=== PATIENT | male | born 1965 | race Caucasian/White ===

== ENCOUNTER 2017-07-04 20:54 | Emergency (ER) | payer OTHER ==
[~2017-07-04] VITALS: Ht 180.3 cm; Wt 70.3 kg
[2017-07-04] MEDS ORDERED: brilinta (21:27)
[2017-07-04] MEDS ORDERED: ORPHENADRINE 60 MG/2 ML (NORFLEX) AMP IM STA (21:57)
[2017-07-04] MEDS ORDERED: KETOROLAC 60 MG/2 ML VIAL IM STA (21:57)
[2017-07-04] MEDS ORDERED: RX-CYCLOBENZAPRINE 10 MG (FLEXERIL) TAB PPK#3 PO STA (22:51)
[2017-07-04] MEDS ORDERED: CYCL10TA9 PO (22:54)
--- NOTE | 2017-07-04 22:55 | ED Back Pain ---
General Chief Complaint: Back Problems Stated Complaint: LOWER BACK PAIN Nursing Triage Note: Patient denies injury to his lower back, he advises that he awoke from sleep and when he got out of bed he began experiencing back pain. Nursing Sepsis Screen: No Definite Risk History of Present Illness Time Seen by Provider: 21:40 Initial Comments Patient has acute left-sided lower lumbar back pain, with muscle spasms. He denies any injury. He took hydrocodone a proximally 2 hours prior to arrival with minimal improvement in his symptoms. He states he's had long-standing back problems dating back to high school. He denies any bowel or bladder changes. Timing/Duration: 12 Hours Severity: Mild Pain/Injury Location: Back Method of Injury: Unknown Modifying Factors: Improves With Movement, Improves With Rest Associated Symptoms: muscle spasms, No numbness in legs/feet, No tingling in legs/feet, No sensory/motor loss, lower back pain, No loss of bladder control, No loss of bowel control Allergies and Home Medications Allergies Coded Allergies: No Known Drug Allergies (Unverified , 07/04/17) Home Medications Cyclobenzaprine HCl 10 Mg Tablet, 10 MG PO Q8H PRN for MUSCLE SPASMS, #12 Ref 0 Prescribed by: DONI SHELBY on 07/04/17 3884 [brilinta] , (Reported) Constitutional: no symptoms reported, see HPI Musculoskeletal: see HPI, back pain All Other Systems Reviewed Negative Unless Noted: Yes Past Znhsdii-Xctlid-Wexvcy Hx Patient Social History Alcohol Use: Denies Use Recreational Drug Use: No Smoking Status: Current Everyday Smoker Type Used: Cigarettes Recent Foreign Travel: No Contact w/Someone Who Travel: No Recent Infectious Disease Expo: No Recent Hopitalizations: No Seasonal Allergies Seasonal Allergies: No Cardiovascular Cardiac Disorders: High Cholesterol Reviewed Nursing Assessment Reviewed/Agree w Nursing PMH: Yes Physical Exam Vital Signs Vital Sign - Last 12Hours 07/04/17 21:17 Temp 98.6 Pulse 90 Resp 14 B/P (MAP) 138/91 Pulse Ox 96 O2 Delivery Room Air Capillary Refill : Less Than 3 Seconds General Appearance: No Apparent Distress, WD/WN Neck: Full Range of Motion, Normal Inspection, Non Tender, Supple Cardiovascular: Regular Rate, Rhythm, No Murmur Respiratory: Chest Non Tender, Lungs Clear Gastrointestinal: Normal Bowel Sounds, Non Tender, Soft Back: Normal Inspection, No CVA Tenderness, Decreased Range of Motion ( secondary to pain), Muscle Spasm (left lumbar), No Vertebral Tenderness Extremity: Normal Capillary Refill, No Calf Tenderness, No Pedal Edema Neurologic/Psychiatric: Alert, Oriented x3, No Motor/Sensory Deficits, Normal Mood/Affect Skin: Normal Color, Warm/Dry Progress/Results/Core Measures Results/Orders My Orders Orders - DONI SHELBY Ketorolac Injection (Toradol Injection) (07/04/17 21:57) Orphenadrine Injection (Norflex Injectio (07/04/17 21:57) Lumbar Spine - 2-3 Views (07/04/17 21:59) Rx-Cyclobenzaprine Tablet (Rx-Flexeril T (07/04/17 22:51) Vital Signs/I&O Vital Sign - Last 12Hours 07/04/17 21:17 Temp 98.6 Pulse 90 Resp 14 B/P (MAP) 138/91 Pulse Ox 96 O2 Delivery Room Air Blood Pressure Mean: 107 Diagnostic Imaging Diagonstic Imaging: Xray Plain Films/CT/US/NM/MRI: other (lumbar spine) Comments Mild degenerative changes noted, no fractures or keep bony abnormalities noted. Will be over read by radiology tomorrow. Reviewed: Reviewed by Me Departure Impression Impression: Primary Impression: Back pain Qualified Codes: M54.5 - Low back pain Additional Impression: Lumbosacral strain Qualified Codes: S39.012A - Strain of muscle, fascia and tendon of lower back , initial encounter Disposition: 01 HOME, SELF-CARE Condition: Improved Departure-Patient Inst. Referrals: NO,LOCAL PHYSICIAN (PCP/Family) Primary Care Physician Patient Instructions: Lumbar Muscle Strain (DC), Low Back Pain (DC) Add. Discharge Instructions: Ibuprofen 600 mg every 8 hours. Use a muscle relaxant as needed every 8 hours. Continue to take your home hydrocodone as needed. Gentle range of motion for the lumbar spine. Ice to low back 20 minutes every 2 hours. Return to the emergency department if symptoms worsen or new problems. Follow-up with your primary care provider in 3-4 days if symptoms are not improving. All discharge instructions reviewed with patient and/or family. Voiced understanding. Scripts Cyclobenzaprine HCl (Cyclobenzaprine HCl) 10 Mg Tablet 10 MG PO Q8H Y for MUSCLE SPASMS, #12 TAB 0 Refills Prov: AFSANEH,DONI LUMBER MARKER 07/04/17 DONI SHELBY Jul 04, 2017 22:55
[2017-07-04 22:59] VITALS: BP 138/91
--- NOTE | 2017-07-05 07:59 | Diagnostic Imaging Report ---
INDICATION: Low back pain. COMPARISON: None. FINDINGS: 3 views of the lumbar column demonstrate normal alignment. There is no subluxation or fracture. Mild degenerative changes seen throughout the spaces and facet joints. There is no osseous lesion. SI joints are symmetric. IMPRESSION: Mild diffuse degenerative changes without fracture or traumatic malalignment. Dictated by: Dictated on workstation # [id number]
== END 2017-07-04 22:59 | disposition home or self-care (01) ==
LOC: ER 20:58
DX: S39.012A Strain of muscle, fascia and tendon of lower back, initial encounter (principal); E78.00 Pure hypercholesterolemia, unspecified; F17.210 Nicotine dependence, cigarettes, uncomplicated; X50.0XXA Overexertion from strenuous movement or load, initial encounter
CPT/HCPCS: 72100; 96372; 99284

== ENCOUNTER 2019-06-12 15:22 | Emergency (ER) | payer SELFPAY ==
[~2019-06-12] VITALS: Ht 180.3 cm; Wt 70.8 kg
[~2019-06-12 15:22] MED LIST: CYCL10TA9 PO; brilinta
--- OUTSIDE RECORDS SUMMARY | 2019-06-12 15:27 | XMS REPORT | Continuity of Care Document ---
Author Organization Unknown Address Unknown Allergies There is no data. Medications There is no data. Problems There is no data. Procedures There is no data. Results There is no data. Encounters ACCT No. Visit Date/Time Discharge Status Pt. Type Provider Facility Loc./Unit Complaint [id number] 06/07/2019 09:20:00 06/07/2019 23:59:59 [facility]
--- NOTE | 2019-06-12 15:30 | ED Lower Extremity ---
General Stated Complaint: RT FOOT PAIN Source: patient, RN notes reviewed, old records Exam Limitations: no limitations History of Present Illness Date Seen by Provider: Jun 12, 2019 Time Seen by Provider: 15:30 Initial Comments Patient presents to the ED c/ c/o worsening redness and pain on the dorsum of his right foot x 1 week. Was started on 300 mg Clindamycin QID on 06/07 by his PCP. Never had before. States he has been cutting of corns on the sole of his foot c/ nail clippers. Onset: last week Severity: moderate (6/10) Pain/Injury Location: right foot Method of Injury: unknown Modifying Factors: Worse With Movement; Improves With Rest Allergies and Home Medications Allergies Coded Allergies: No Known Drug Allergies (Unverified , 07/04/17) Home Medications Cephalexin 500 Mg Capsule, 1,000 MG PO TID Prescribed by: MICHELLE MAY on 06/12/191700 Cyclobenzaprine HCl 10 Mg Tablet, 10 MG PO Q8H PRN for MUSCLE SPASMS Prescribed by: DONI SHELBY on 07/04/172253 Dexamethasone 4 Mg Tablet, 12 MG PO ONCE Prescribed by: MICHELLE MAY on 06/12/191706 Hydrocodone Bit/Acetaminophen 1 Ea Tablet, 1 EACH PO Q6H PRN for BREAK THRU PAIN Prescribed by: MICHELLE MAY on 06/12/191700 Patient Home Medication List Home Medication List Reviewed: Yes Review of Systems Constitutional: see HPI Musculoskeletal: see HPI, other (right foot pain) Skin: see HPI, other (redness across top of right foot) All Other Systems Reviewed Negative Unless Noted: Yes (Negative excepted noted.) Past Jdaomus-Ithfro-Bzmmxc Hx Patient Social History Type Used: Cigarettes Recent Hopitalizations: No Seasonal Allergies Seasonal Allergies: No Past Medical History Surgeries: Yes (cardiac stent placement) Respiratory: No Cardiac: Yes High Cholesterol Neurological: No Genitourinary: No Gastrointestinal: No Musculoskeletal: Yes (back injury in high school) HEENT: No Cancer: No Psychosocial: No Physical Exam Vital Signs Vital Signs - First Documented 06/12/19 15:24 Temp 98.7 Pulse 112 Resp 18 B/P (MAP) 103/69 (80) Pulse Ox 96 Capillary Refill : Height, Weight, BMI Height: 5'11.00" Weight: 155lbs. oz. 70.842947yn; BMI Method:Stated General Appearance: WD/WN, no apparent distress Cardiovascular: tachycardia Respiratory: no respiratory distress Feet: right foot infection, right foot pain, right foot soft tissue tenderness, right foot swelling Neurologic/Psychiatric: no motor/sensory deficits, alert, normal mood/affect, oriented x 3 Skin: warm/dry, other ((+) erythema across the top of the patient's right foot) Progress/Results/Core Measures Results/Orders Lab Results Laboratory Tests Test 06/12/19 15:45 06/12/19 16:10 Range/Units White Blood Count 10.8 4.3-11.0 10^3/uL Red Blood Count 5.76 4.35-5.85 10^6/uL Hemoglobin 18.3 H 13.3-17.7 G/DL Hematocrit 54 40-54 % Mean Corpuscular Volume 93 80-99 FL Mean Corpuscular Hemoglobin 32 25-34 PG Mean Corpuscular Hemoglobin Concent 34 32-36 G/DL Red Cell Distribution Width 13.5 10.0-14.5 % Platelet Count 264 130-400 10^3/uL Mean Platelet Volume 8.5 7.4-10.4 FL Neutrophils (%) (Auto) 71 42-75 % Lymphocytes (%) (Auto) 21 12-44 % Monocytes (%) (Auto) 6 0-12 % Eosinophils (%) (Auto) 1 0-10 % Basophils (%) (Auto) 1 0-10 % Neutrophils # (Auto) 7.7 1.8-7.8 X 10^3 Lymphocytes # (Auto) 2.3 1.0-4.0 X 10^3 Monocytes # (Auto) 0.6 0.0-1.0 X 10^3 Eosinophils # (Auto) 0.1 0.0-0.3 10^3/uL Basophils # (Auto) 0.1 0.0-0.1 10^3/uL Erythrocyte Sedimentation Rate 1 0-30 MM/HR Sodium Level 138 135-145 MMOL/L Potassium Level 3.7 3.6-5.0 MMOL/L Chloride Level 98 98-107 MMOL/L Carbon Dioxide Level 20 L 21-32 MMOL/L Anion Gap 20 H 5-14 MMOL/L Blood Urea Nitrogen 14 7-18 MG/DL Creatinine 1.03 0.60-1.30 MG/DL Estimat Glomerular Filtration Rate > 60 BUN/Creatinine Ratio 14 Glucose Level 146 H 70-105 MG/DL Calcium Level 9.7 8.5-10.1 MG/DL Corrected Calcium 9.5 8.5-10.1 MG/DL Total Bilirubin 0.3 0.1-1.0 MG/DL Aspartate Amino Transf (AST/SGOT) 19 5-34 U/L Alanine Aminotransferase (ALT/SGPT) 14 0-55 U/L Alkaline Phosphatase 114 40-136 U/L Total Protein 7.1 6.4-8.2 GM/DL Albumin 4.2 3.2-4.5 GM/DL Lactic Acid Level 1.76 0.50-2.00 MMOL/L My Orders Orders - MICHELLE MAY DO Cbc With Automated Diff (06/12/19 15:36) Comprehensive Metabolic Panel (06/12/19 15:36) Lactic Acid Analyzer (06/12/19 15:36) Erythrocyte Sedimentation Rate (06/12/19 15:36) Hs C Reactive Protein (06/12/19 15:45) Vital Signs/I&O 06/12/19 06/12/19 15:24 17:13 Temp 98.7 Pulse 112 104 Resp 18 18 B/P (MAP) 103/69 (80) 123/79 (94) Pulse Ox 96 95 Departure Impression Primary Impression: Cellulitis of right foot Disposition: HOME, SELF-CARE Condition: Stable Departure-Patient Inst. Referrals: JERROD ARMAS MD (PCP/Family) Primary Care Physician Patient Instructions: Cellulitis (Skin Infection), Adult (DC) Add. Discharge Instructions: MAY ADD 650 mg OF TYLENOL EVERY 6 HOURS IN ADDITION TO THE PRESCRIBED PAIN MEDICATION IF NEEDED WELL. Scripts Dexamethasone (Decadron) 4 Mg Tablet 12 MG PO ONCE, #3 TAB 0 Refills Prov: MICHELLE MAY DO 06/12/19 Hydrocodone Bit/Acetaminophen (LORTAB 7.5 MG TABLET) 1 Ea Tablet 1 EACH PO Q6H PRN for BREAK THRU PAIN, #14 TAB 0 Refills Prov: MICHELLE MAY DO 06/12/19 Cephalexin (Keflex) 500 Mg Capsule 1000 MG PO TID for CELLULITIS for 10 Days, #60 CAP 0 Refills Prov: MICHELLE MAY DO 06/12/19 MICHELLE MAY DO Jun 12, 2019 15:30
[2019-06-12 15:52] LABS: BASOPHILS # (AUTO) 0.1 10^3/uL (0.0-0.1); BASOPHILS % (AUTO) 1 % (0-10); EOSINOPHILS # (AUTO) 0.1 10^3/uL (0.0-0.3); EOSINOPHILS % (AUTO) 1 % (0-10); HEMATOCRIT 54 % (40-54); HEMOGLOBIN 18.3 G/DL (13.3-17.7); LYMPHOCYTES # (AUTO) 2.3 X 10^3 (1.0-4.0); LYMPHOCYTES % (AUTO) 21 % (12-44); MEAN CORPUSCULAR HEMOGLOBIN 32 PG (25-34); MEAN CORPUSCULAR HGB CONC 34 G/DL (32-36); MEAN CORPUSCULAR VOLUME 93 FL (80-99); MEAN PLATELET VOLUME 8.5 FL (7.4-10.4); MONOCYTES # (AUTO) 0.6 X 10^3 (0.0-1.0); MONOCYTES % (AUTO) 6 % (0-12); NEUTROPHILS # (AUTO) 7.7 X 10^3 (1.8-7.8); NEUTROPHILS % (AUTO) 71 % (42-75); PLATELET COUNT 264 10^3/uL (130-400); RED CELL DISTRIBUTION WIDTH 13.5 % (10.0-14.5); WHITE BLOOD COUNT 10.8 10^3/uL (4.3-11.0)
[2019-06-12 16:33] LABS: ERYTHROCYTE SEDIMENTATION RATE 1 MM/HR (0-30)
[2019-06-12 16:39] LABS: BUN/CREATININE RATIO 14; CARBON DIOXIDE 20 MMOL/L (21-32); CHLORIDE 98 MMOL/L (98-107); CREATININE SERUM 1.03 MG/DL (0.60-1.30); GFR ESTIMATED > 60; POTASSIUM 3.7 MMOL/L (3.6-5.0); SODIUM 138 MMOL/L (135-145)
[2019-06-12 16:40] LABS: ALANINE AMINOTRANSFERASE 14 U/L (0-55); ALBUMIN 4.2 GM/DL (3.2-4.5); ALKALINE PHOSPHATASE 114 U/L (40-136); BILIRUBIN,TOTAL 0.3 MG/DL (0.1-1.0); CALCIUM 9.7 MG/DL (8.5-10.1); GLUCOSE 146 MG/DL (70-105); TOTAL PROTEIN 7.1 GM/DL (6.4-8.2)
[2019-06-12] MEDS ORDERED: CEPH-507 PO (17:01)
[2019-06-12] MEDS ORDERED: HYDR-34 PO (17:01)
[2019-06-12] MEDS ORDERED: DEXA4TAB66 PO (17:07)
[2019-06-12 17:13] VITALS: BP 123/79
== END 2019-06-12 17:15 | disposition home or self-care (01) ==
LOC: EDUNIT# 15:22 → ER FS 15:24
DX: L03.115 Cellulitis of right lower limb (principal); E78.00 Pure hypercholesterolemia, unspecified; Z95.5 Presence of coronary angioplasty implant and graft
CPT/HCPCS: 36415; 80053; 83605; 85025; 85652; 86141

== ENCOUNTER → 2019-08-08 | Outpatient (CLI) | payer BC ==
[~2019-08-08] MED LIST changes: +CEPH-507 PO; +DEXA4TAB66 PO; +HYDR-34 PO
== END ==
LOC: RT 14:27
PROVIDERS: ATTEND Nurse Practitioner Family
DX: J30.9 Allergic rhinitis, unspecified (principal); J44.9 Chronic obstructive pulmonary disease, unspecified; F17.200 Nicotine dependence, unspecified, uncomplicated

== ENCOUNTER → 2019-09-26 | Outpatient (CLI) | payer BC ==
[~2019-09-26] MED LIST changes: +RT-ALBUTEROL SULF 2.5 MG/3 ML PRE-MIX VIAL INH ONE
== END ==
LOC: RT 10:33
PROVIDERS: ATTEND Nurse Practitioner Family
DX: J44.9 Chronic obstructive pulmonary disease, unspecified (principal); J30.9 Allergic rhinitis, unspecified; F17.200 Nicotine dependence, unspecified, uncomplicated
CPT/HCPCS: 94060; 94726; 94729

== ENCOUNTER → 2019-09-30 | Outpatient (CLI) | payer BC ==
[2019-09-26 14:25] LABS: BUN/CREATININE RATIO 18; GFR ESTIMATED > 60
[~2019-09-30] MED LIST changes: +CATHETER FLUSH 10 ML SYR IV PRN; +HOLD METFORMIN - RECEIVED CONTRAST 20 ML VIAL IV SCH; +IOHEXOL 350 MG/ML 100 ML (OMNIPAQUE 350) VIAL IV ONE; +NS 100 ML (IVPB) BAG IV ONE; -RT-ALBUTEROL SULF 2.5 MG/3 ML PRE-MIX VIAL INH ONE
--- NOTE | 2019-09-30 12:56 | Diagnostic Imaging Report ---
PROCEDURE: CT chest with contrast only. TECHNIQUE: Multiple contiguous axial images were obtained through the chest after administration of intravenous contrast. Auto Exposure Controls were utilized during the CT exam to meet ALARA standards for radiation dose reduction. INDICATION: Difficulty breathing. COMPARISON: No prior studies are available for comparison. FINDINGS: No axillary lymphadenopathy is detected. No definite mediastinal or hilar lymphadenopathy is detected. No pericardial or pleural fluid is identified. Parenchymal evaluation demonstrates centrilobular emphysematous changes. There is some dependent atelectasis in both lung bases. There appears to be some minimal infiltrate in the posterior right lower lobe. No definite nodule or mass is detected. The upper abdomen demonstrates a tiny nonobstructing calculus in the right kidney upper pole. Bony structures are nonacute. IMPRESSION: 1. Centrilobular emphysematous changes. There is minimal patchy infiltrate in posterior right lower lobe. No mass or thoracic lymphadenopathy is detected. 2. Tiny nonobstructing right renal calculus. Dictated by: Dictated on workstation # [id number]
== END ==
LOC: RAD 09-26 13:51 → RAD FS 11:08
PROVIDERS: ATTEND Nurse Practitioner Family
DX: J43.2 Centrilobular emphysema (principal); J30.9 Allergic rhinitis, unspecified; F17.200 Nicotine dependence, unspecified, uncomplicated
CPT/HCPCS: 36415; 71260; 82565; 84520

== ENCOUNTER 2019-11-07 15:35 | Emergency (ER) | payer BC ==
[~2019-11-07] VITALS: Ht 180 cm; Wt 72.5 kg
[~2019-11-07 15:35] MED LIST changes: -CATHETER FLUSH 10 ML SYR IV PRN; -HOLD METFORMIN - RECEIVED CONTRAST 20 ML VIAL IV SCH; -IOHEXOL 350 MG/ML 100 ML (OMNIPAQUE 350) VIAL IV ONE; -NS 100 ML (IVPB) BAG IV ONE
[2019-11-07 15:58] LABS: HEMATOCRIT 52 % (40-54); HEMOGLOBIN 17.7 G/DL (13.3-17.7); MEAN CORPUSCULAR HEMOGLOBIN 32 PG (25-34); MEAN CORPUSCULAR HGB CONC 34 G/DL (32-36); MEAN CORPUSCULAR VOLUME 94 FL (80-99); WHITE BLOOD COUNT 8.4 10^3/uL (4.3-11.0)
[2019-11-07 15:59] LABS: BASOPHILS % (AUTO) 0 % (0-10); EOSINOPHILS # (AUTO) 0.1 10^3/uL (0.0-0.3); EOSINOPHILS % (AUTO) 2 % (0-10); LYMPHOCYTES # (AUTO) 2.2 X 10^3 (1.0-4.0); LYMPHOCYTES % (AUTO) 26 % (12-44); MEAN PLATELET VOLUME 8.4 FL (7.4-10.4); MONOCYTES # (AUTO) 0.6 X 10^3 (0.0-1.0); MONOCYTES % (AUTO) 7 % (0-12); NEUTROPHILS # (AUTO) 5.5 X 10^3 (1.8-7.8); NEUTROPHILS % (AUTO) 65 % (42-75); PLATELET COUNT 258 10^3/uL (130-400); RED CELL DISTRIBUTION WIDTH 13.2 % (10.0-14.5)
[2019-11-07] MEDS ORDERED: ASPIRIN 81 MG CHEW (CHILDREN'S ASA) PO ONE (16:00)
--- NOTE | 2019-11-07 16:06 | ED Chest Pain ---
General Chief Complaint: Chest Pain Stated Complaint: BACK AND CHEST PAIN Nursing Triage Note: Has been having intermittent chest tightness for the past two days, currently rated at 3/10. Has hx of stent placement 4 years ago. Also has hx of copd and has been coughing worse for the past week. Cough is productive of a whitish phlegm. Did have some shortness of breath and dizziness yesterday. 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 Nursing Sepsis Screen: No Definite Risk Source: patient Exam Limitations: no limitations (MAYKEL LUU DO) History of Present Illness Date Seen by Provider: Nov 07, 2019 Time Seen by Provider: 15:50 Initial Comments The patient is a 54-year-old male presents for evaluation of right sided chest tightness which is been bothering him for the past 2 days. He states that he had a cardiac stent placed about 4 years ago and that this pain does not remind him of back pain. He reports a history of COPD and believes that that's what this is. He is also having some acute on chronic low back pain which started weeks ago. He states that he had some shortness of breath and dizziness yesterday. His healthcare associate is an Alexandra. He states that he does not take aspirin daily and did not take one today. He tells me that he took his other cardiac medications but is unable to tell me what they are. Timing/Duration: 1-2 days Severity/Quality: moderate Location: other (right chest) Radiation: no radiation Activities at Onset: none Prior CP/Workup: cardiac cath (with stent placement) ASA po CAR DRIVER: No NTG SL CAR DRIVER: No Associated Symptoms: back pain (low back pain, chronic started before chest discomfort) (MAYKEL LUU DO) Allergies and Home Medications Allergies Coded Allergies: No Known Drug Allergies (Unverified , 07/04/17) Home Medications Cephalexin 500 Mg Capsule, 1,000 MG PO TID Prescribed by: MICHELLE MAY on 06/12/19 170 Cyclobenzaprine HCl 10 Mg Tablet, 10 MG PO Q8H PRN for MUSCLE SPASMS Prescribed by: DONI SHELBY on 07/04/17 349 Dexamethasone 4 Mg Tablet, 12 MG PO ONCE Prescribed by: MICHELLE MAY on 06/12/19 170 Hydrocodone Bit/Acetaminophen 1 Ea Tablet, 1 EACH PO Q6H PRN for BREAK THRU PAIN Prescribed by: MICHELLE MAY on 06/12/19 1701 Patient Home Medication List Home Medication List Reviewed: Yes (MAYKEL LUU DO) Review of Systems Review of Systems Constitutional: no symptoms reported EENTM: No Symptoms Reported Respiratory: No Symptoms Reported Cardiovascular: Chest Pain Gastrointestinal: No Symptoms Reported Genitourinary: No Symptoms Reported Musculoskeletal: back pain (low back pain) Skin: no symptoms reported Psychiatric/Neurological: No Symptoms Reported Endocrine: No Symptoms Reported Hematologic/Lymphatic: No Symptoms Reported (MAYKEL LUU DO) All Other Systems Reviewed Negative Unless Noted: Yes (MAYKEL LUU DO) Past Apzsjaa-Qlfsob-Pwkpqd Hx Past Med/Social Hx: Reviewed Nursing Past Med/Soc Hx (MAYKEL LUU DO) Patient Social History Alcohol Use: Denies Use Recreational Drug Use: No Type Used: Cigarettes 2nd Hand Smoke Exposure: Yes Recent Foreign Travel: No Contact w/Someone Who Travel: No Recent Infectious Disease Expo: No Recent Hopitalizations: No Physical Abuse: No Sexual Abuse: No Mistreated: No Fear: No (MAYKEL LUU DO) Seasonal Allergies Seasonal Allergies: No (MAYKEL LUU DO) Past Medical History Surgeries: Yes (cardiac stent placement) Respiratory: No Cardiac: Yes (stent placement ) High Cholesterol Neurological: No Genitourinary: No Gastrointestinal: No Musculoskeletal: Yes (back injury in high school) Endocrine: No HEENT: No Cancer: No Psychosocial: No Integumentary: No (MAYKEL LUU DO) Physical Exam Vital Signs Vital Signs - First Documented 11/07/19 15:41 Temp 36.2 Pulse 95 Resp 20 B/P (MAP) 122/77 (92) Pulse Ox 93 (JOSÉ LUIS TRISTAN MD) Vital Signs Capillary Refill : Less Than 3 Seconds (MAYKEL LUU DO) Height, Weight, BMI Height: 5'11.00" Weight: 156lbs. oz. 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-XII Norm as Tested Skin: Normal Color, Warm/Dry (MAYKEL LUU DO) Progress/Results/Core Measures Results/Orders Lab Results Laboratory Tests Test 11/07/19 15:48 11/07/19 17:08 Range/Units White Blood Count 8.4 4.3-11.0 10^3/uL Red Blood Count 5.50 4.35-5.85 10^6/uL Hemoglobin 17.7 13.3-17.7 G/DL Hematocrit 52 40-54 % Mean Corpuscular Volume 94 80-99 FL Mean Corpuscular Hemoglobin 32 25-34 PG Mean Corpuscular Hemoglobin Concent 34 32-36 G/DL Red Cell Distribution Width 13.2 10.0-14.5 % Platelet Count 258 130-400 10^3/uL Mean Platelet Volume 8.4 7.4-10.4 FL Neutrophils (%) (Auto) 65 42-75 % Lymphocytes (%) (Auto) 26 12-44 % Monocytes (%) (Auto) 7 0-12 % Eosinophils (%) (Auto) 2 0-10 % Basophils (%) (Auto) 0 0-10 % Neutrophils # (Auto) 5.5 1.8-7.8 X 10^3 Lymphocytes # (Auto) 2.2 1.0-4.0 X 10^3 Monocytes # (Auto) 0.6 0.0-1.0 X 10^3 Eosinophils # (Auto) 0.1 0.0-0.3 10^3/uL Basophils # (Auto) 0.0 0.0-0.1 10^3/uL Sodium Level 139 135-145 MMOL/L Potassium Level 3.9 3.6-5.0 MMOL/L Chloride Level 103 98-107 MMOL/L Carbon Dioxide Level 25 21-32 MMOL/L Anion Gap 11 5-14 MMOL/L Blood Urea Nitrogen 16 7-18 MG/DL Creatinine 0.90 0.60-1.30 MG/DL Estimat Glomerular Filtration Rate > 60 BUN/Creatinine Ratio 18 Glucose Level 130 H 70-105 MG/DL Calcium Level 9.2 8.5-10.1 MG/DL Corrected Calcium 9.1 8.5-10.1 MG/DL Total Bilirubin 0.3 0.1-1.0 MG/DL Aspartate Amino Transf (AST/SGOT) 16 5-34 U/L Alanine Aminotransferase (ALT/SGPT) 11 0-55 U/L Alkaline Phosphatase 110 40-136 U/L Troponin I < 0.30 < 0.30 <0.30 NG/ML Pro-B-Type Natriuretic Peptide 36.3 <75.0 PG/ML Total Protein 6.8 6.4-8.2 GM/DL Albumin 4.1 3.2-4.5 GM/DL Lipase 19 8-78 U/L (JOSÉ LUIS TRISTAN MD) Medications Given in ED Current Medications Medications Dose Ordered Sig/Herrera Route Start Time Stop Time Status Last Admin Dose Admin Aspirin 324 mg ONCE ONCE PO 11/07/19 16:00 11/07/19 16:01 DC 11/07/19 16:00 324 MG (JOSÉ LUIS TRISTAN MD) Vital Signs/I&O 11/07/19 15:41 Temp 36.2 Pulse 95 Resp 20 B/P (MAP) 122/77 (92) Pulse Ox 93 (JOSÉ LUIS TRISTAN MD) Blood Pressure Mean: 92 POS Progress Progress Note : Progress Note @1800 - Pt care transferred to Dr. Tristan at this time. Pt has no new complaints and is stable. Awaiting second troponin anticipated around 1829. (MAYKEL LUU DO) Progress Note #1: Time: 18:00 Progress Note I assumed care for the patient from Dr. Luu at shift change pending a repeat Troponin. This is due to be drawn after 1830. Plan is that provided he has no new complaints that if this repeat test is still negative to discharge him to home and have him follow up with his primary provider. Progress Note #2: Time: 19:54 Progress Note Repeat troponin is still <0.30. Pt still feels like he is breathing ok and that this is related to his COPD. Will treat him with steroid burst and give first dose of Solu-Medrol here. Then follow up with a prednisone started by mouth. Since he states that he is coughing up some thick whitish green mucus will also treat him with a Z-Daniel to help with inflammation and bronchitis. Patient also still complaining of low back pain since he had a fall about a month ago. Advised that the steroids may help from the contusion and if he continued to have symptoms to check with his primary doctor both about the breathing and his low back. If he has continued pain and they may need to do a bone scan or imaging to look for a compression fracture since he does have a history of having to be on steroids for his breathing. (JOSÉ LUIS TRISTAN MD) EKG : Comment @1542 - normal sinus rhythm, rate of 95, normal axis, right bundle-branch block is present, no acute ischemic findings noted, no STEMI, reviewed and interpreted by myself (MAYKEL LUU DO) Diagnostic Imaging Diagonstic Imaging: Xray Plain Films/CT/US/NM/MRI: chest Comments NAME: MAX ORDOÑEZ MED REC#: [id number] PT STATUS: REG ER : 1965 PHYSICIAN: MAYKEL LUU DO ADMIT DATE: 11/07/19/ER FS Draft POSDate of Exam:11/07/19 CHEST 1 VIEW AP/PA ONLY INDICATION: Chest tightness. COMPARISON: CT dated 09/30/2019. FINDINGS: Single frontal view of the chest demonstrates normal heart size and pulmonary vascularity. The lungs are well aerated and clear. No large pleural effusion or pneumothorax is seen. The visualized osseous structures show no acute abnormalities. IMPRESSION: 1. No acute cardiopulmonary process. Dictated on workstation # [id number] Dict: 11/07/19 1603 Trans: 11/07/19 1605 [id number] Interpreted by: CHRISTOFER NAIR MD Electronically signed by: (JOSÉ LUIS TRISTAN MD) Departure Impression Primary Impression: COPD with exacerbation Additional Impression: Lumbar contusion Qualified Codes: S30.0XXD - Contusion of lower back and pelvis, subsequent encounter Disposition: 01 HOME, SELF-CARE Condition: Stable Departure-Patient Inst. Decision time for Depature: 20:05 (JOSÉ LUIS TRISTAN MD) Referrals: JERROD ARMAS MD (PCP/Family) Primary Care Physician Patient Instructions: Exacerbation of COPD (DC), Contusion (DC) Add. Discharge Instructions: Take the full course of steroids and antibiotics to help with the COPD exacerbation. Follow up with Dr. Armas for continued concerns and if not improving, both with your breathing and the low back contusion and pain. All discharge instructions reviewed with patient and/or family. Voiced understanding. Scripts Prednisone (Prednisone) 20 Mg Tab 40 MG PO DAILY for 5 Days, #10 TAB 0 Refills Prov: JOSÉ LUIS TRISTAN MD 11/07/19 Azithromycin (Azithromycin) 250 Mg Tablet 250 MG PO DAILY for 4 Days, #4 TAB 0 Refills Prov: JOSÉ LUIS TRISTAN MD 11/07/19 Work/School Note: Work Release Form Date Seen in the Emergency Department: Nov 07, 2019 Return to Work: Nov 08, 2019 Restrictions: No Restrictions MAYKEL LUU DO Nov 07, 2019 16:06 JOSÉ LUIS ALVARADO MD Nov 07, 2019 19:48 POS
[2019-11-07 16:30] LABS: CARBON DIOXIDE 25 MMOL/L (21-32); CHLORIDE 103 MMOL/L (98-107); POTASSIUM 3.9 MMOL/L (3.6-5.0); SODIUM 139 MMOL/L (135-145)
[2019-11-07 16:31] LABS: ALANINE AMINOTRANSFERASE 11 U/L (0-55); ALBUMIN 4.1 GM/DL (3.2-4.5); ALKALINE PHOSPHATASE 110 U/L (40-136); BILIRUBIN,TOTAL 0.3 MG/DL (0.1-1.0); BUN/CREATININE RATIO 18; CALCIUM 9.2 MG/DL (8.5-10.1); GFR ESTIMATED > 60; GLUCOSE 130 MG/DL (70-105); LIPASE 19 U/L (8-78); TOTAL PROTEIN 6.8 GM/DL (6.4-8.2)
[2019-11-07] MEDS ORDERED: methylPREDNISolone 125 MG (Solu-MEDROL) VIAL IVP STA (20:01)
[2019-11-07] MEDS ORDERED: AZITHROMYCIN 250 MG TAB (ZITHROMAX) PO STA (20:01)
[2019-11-07] MEDS ORDERED: PRD20T PO (20:08)
[2019-11-07] MEDS ORDERED: AZIT250T12 PO (20:08)
[2019-11-07 20:11] VITALS: BP 116/75
== END 2019-11-07 20:11 | disposition home or self-care (01) ==
LOC: EDUNIT# 15:35 → ER FS 15:36
DX: J44.1 Chronic obstructive pulmonary disease with (acute) exacerbation (principal); S30.0XXD Contusion of lower back and pelvis, subsequent encounter; E78.00 Pure hypercholesterolemia, unspecified; Z95.5 Presence of coronary angioplasty implant and graft; Z77.22 Contact with and (suspected) exposure to environmental tobacco smoke (acute) (chronic); Z87.828 Personal history of other (healed) physical injury and trauma; X58.XXXD Exposure to other specified factors, subsequent encounter
CPT/HCPCS: 36415; 71045; 80053; 83690; 83880; 84484; 85025; 93005; 93041

== ENCOUNTER → 2020-03-16 | Outpatient (CLI) | payer BC, OTHER ==
[~2020-03-16] MED LIST changes: +AZIT250T12 PO; +CATHETER FLUSH 10 ML SYR IV PRN; +HOLD METFORMIN - RECEIVED CONTRAST 20 ML VIAL IV SCH; +IOHEXOL 350 MG/ML 100 ML (OMNIPAQUE 350) VIAL IV ONE; +NS 100 ML (IVPB) BAG IV ONE; +PRD20T PO
--- NOTE | 2020-03-16 11:46 | Diagnostic Imaging Report ---
PROCEDURE: CT chest with contrast only. TECHNIQUE: Multiple contiguous axial images were obtained through the chest after administration of intravenous contrast. Auto Exposure Controls were utilized during the CT exam to meet ALARA standards for radiation dose reduction. INDICATION: Dyspnea, cough, COPD. COMPARISON: 09/30/2019 FINDINGS: No significant adenopathy within the chest. Calcified left hilar lymph nodes are again noted. No aneurysmal dilatation of the thoracic aorta. The heart is within normal limits in size. No pericardial effusion. No significant pleural effusion. No pneumothorax. Moderate background centrilobular emphysematous changes. Dependent atelectasis is noted bilaterally. Mild reticular and groundglass opacities are noted within the most inferior aspect of the right lower lobe. These opacities appear less dense though persistent when compared to prior CT. No new focal pulmonary opacity or nodule. The trachea is patent. Calcified splenic granuloma. Nonobstructing right renal calculus. No acute osseous abnormality with scattered osseous degenerative changes. IMPRESSION: Moderate background emphysematous changes with associated dependent atelectasis. Persistent right basilar atelectasis and/or pneumonitis. This appears less dense than the prior examination though persisting opacities do remain within this region. Tiny nonobstructing right renal calculus. Evidence of chronic granulomatous disease. Dictated by: Dictated on workstation # [id number]
== END ==
LOC: RAD FS 10:03
PROVIDERS: ATTEND Nurse Practitioner Family
DX: J43.9 Emphysema, unspecified (principal); F17.200 Nicotine dependence, unspecified, uncomplicated; N20.0 Calculus of kidney
CPT/HCPCS: 71260

== ENCOUNTER → 2020-03-16 | Outpatient (CLI) | payer OTHER ==
[~2020-03-16] MED LIST changes: -CATHETER FLUSH 10 ML SYR IV PRN; -HOLD METFORMIN - RECEIVED CONTRAST 20 ML VIAL IV SCH; -IOHEXOL 350 MG/ML 100 ML (OMNIPAQUE 350) VIAL IV ONE; -NS 100 ML (IVPB) BAG IV ONE
[2020-03-16 10:12] LABS: HEMATOCRIT 54 % (40-54); HEMOGLOBIN 18.3 G/DL (13.3-17.7); MEAN CORPUSCULAR HEMOGLOBIN 32 PG (25-34); MEAN CORPUSCULAR VOLUME 95 FL (80-99); WHITE BLOOD COUNT 7.6 10^3/uL (4.3-11.0)
[2020-03-16 10:13] LABS: BASOPHILS % (AUTO) 0 % (0-10); EOSINOPHILS % (AUTO) 3 % (0-10); LYMPHOCYTES % (AUTO) 32 % (12-44); MEAN CORPUSCULAR HGB CONC 34 G/DL (32-36); MEAN PLATELET VOLUME 8.2 FL (7.4-10.4); MONOCYTES % (AUTO) 6 % (0-12); NEUTROPHILS % (AUTO) 59 % (42-75); PLATELET COUNT 196 10^3/uL (130-400); RED CELL DISTRIBUTION WIDTH 13.4 % (10.0-14.5)
[2020-03-16 10:14] LABS: EOSINOPHILS # (AUTO) 0.3 10^3/uL (0.0-0.3); LYMPHOCYTES # (AUTO) 2.4 X 10^3 (1.0-4.0); MONOCYTES # (AUTO) 0.5 X 10^3 (0.0-1.0); NEUTROPHILS # (AUTO) 4.4 X 10^3 (1.8-7.8)
[2020-03-16 10:35] LABS: BUN/CREATININE RATIO 13; CARBON DIOXIDE 23 MMOL/L (21-32); CHLORIDE 104 MMOL/L (98-107); CREATININE SERUM 0.83 MG/DL (0.60-1.30); GFR ESTIMATED > 60; POTASSIUM 4.2 MMOL/L (3.6-5.0); SODIUM 140 MMOL/L (135-145)
[2020-03-16 10:36] LABS: ALANINE AMINOTRANSFERASE 14 U/L (0-55); ALBUMIN 4.2 GM/DL (3.2-4.5); ALKALINE PHOSPHATASE 112 U/L (40-136); BILIRUBIN,TOTAL 0.5 MG/DL (0.1-1.0); CALCIUM 9.5 MG/DL (8.5-10.1); GLUCOSE 100 MG/DL (70-105); TOTAL PROTEIN 6.7 GM/DL (6.4-8.2)
[2020-03-16 15:46] LABS: CHOLESTEROL 187 MG/DL (< 200); HDL CHOLESTEROL 49 MG/DL (40-60); TRIGLYCERIDES 135 MG/DL (<150); VLDL CHOLESTEROL 27 MG/DL (5-40)
== END ==
LOC: LAB FS 09:44
PROVIDERS: ATTEND Nurse Practitioner Family
DX: Z01.812 Encounter for preprocedural laboratory examination (principal); Z13.1 Encounter for screening for diabetes mellitus; Z86.39 Personal history of other endocrine, nutritional and metabolic disease
CPT/HCPCS: 36415; 80053; 80061; 85025

== ENCOUNTER → 2020-03-20 | Outpatient (CLI) | payer OTHER ==
--- NOTE | 2020-03-20 10:09 | Diagnostic Imaging Report ---
EXAMINATION: Lumbar spine radiographs, 3 views. COMPARISON: July 04, 2017. HISTORY: 54-year-old male, low back pain. FINDINGS: There are 5 lumbar-type vertebral bodies. There is no identified compression deformity or other fracture. There is multilevel mild to moderate disc height loss at the thoracolumbar spine levels with multilevel endplate degenerative related changes. There are mild bilateral facet degenerative changes at L4-L5 and L5-S1. The sacroiliac joints are unremarkable in appearance. There are atherosclerotic calcifications. IMPRESSION: 1. Multilevel mild to moderate disc degenerative changes of the thoracolumbar spine. 2. No identified compression deformity. 3. Mild bilateral facet degenerative changes at L4-L5 and L5-S1. 4. There is an interval progression of degenerative changes of the spine since comparison radiographs of July 04, 2017. Dictated by: Dictated on workstation # [id number]
== END ==
LOC: RAD FS 09:26
PROVIDERS: ATTEND Nurse Practitioner
DX: M47.815 Spondylosis without myelopathy or radiculopathy, thoracolumbar region (principal); M47.817 Spondylosis without myelopathy or radiculopathy, lumbosacral region
CPT/HCPCS: 72100

== ENCOUNTER 2020-04-11 12:58 | Inpatient (IN) | payer OTHER ==
[~2020-04-11] VITALS: Ht 183 cm; Wt 70.0 kg
[2020-04-11] VITALS (11 sets, daily range): BP systolic 115–161; BP diastolic 58–102
[2020-04-11] MEDS ORDERED: ATOR80TA76 PO (13:13)
[2020-04-11] MEDS ORDERED: NITROGLYCERIN 0.4 MG SL TABS BTL 25'S SL PRN (13:15)
[2020-04-11] MEDS ORDERED: ASPIRIN 81 MG CHEW (CHILDREN'S ASA) PO ONE (13:15)
[2020-04-11] MEDS ORDERED: ASPI-586 PO (13:16)
--- NOTE | 2020-04-11 13:25 | ED Chest Pain ---
General Chief Complaint: Chest Pain Stated Complaint: CHEST PAIN; SOB Nursing Triage Note: Chest pain starting while working, eased up since stopping. Nursing Sepsis Screen: No Definite Risk Source: patient Exam Limitations: no limitations History of Present Illness Date Seen by Provider: April 11, 2020 Time Seen by Provider: 13:19 Initial Comments Patient complains of onset of chest pain with nausea and shortness of breath while working lasting 15+ minutes abating slowly once ceasing work. Patient has a history of coronary stents 4 years ago currently on aspirin, smokes, elevated triglycerides. Patient has had some intermittent effort related chest pain but none in the past month. 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) Prior CP/Workup: no prior cardiac workup, cardiac cath, other (stents 4 years ago) Modifying Factors: improves with exercise ASA po ORNAMENTAL RAIL INSTALLER: No NTG SL ORNAMENTAL RAIL INSTALLER: No Associated Symptoms: No diaphoresis, No dizziness, No nausea/vomiting; shortness of breath Allergies and Home Medications Allergies Coded Allergies: No Known Drug Allergies (Unverified , 07/04/17) Patient Home Medication List Home Medication List Reviewed: Yes Review of Systems Review of Systems Constitutional: no symptoms reported EENTM: No Symptoms Reported Respiratory: See HPI, Cough Cardiovascular: See HPI Gastrointestinal: See HPI Genitourinary: No Symptoms Reported Musculoskeletal: no symptoms reported Skin: no symptoms reported Psychiatric/Neurological: No Symptoms Reported Hematologic/Lymphatic: No Symptoms Reported Past Hwlcnrx-Gaillq-Csvtbc Hx Patient Social History Alcohol Use: Denies Use Recreational Drug Use: No Type Used: Cigarettes 2nd Hand Smoke Exposure: Yes Recent Foreign Travel: No Contact w/Someone Who Travel: No Recent Infectious Disease Expo: No Recent Hopitalizations: No Physical Abuse: No Sexual Abuse: No Mistreated: No Fear: No Seasonal Allergies Seasonal Allergies: No Past Medical History Surgeries: Yes (cardiac stent placement) Respiratory: No Cardiac: Yes (stent placement ) High Cholesterol Neurological: No Genitourinary: No Gastrointestinal: No Musculoskeletal: Yes (back injury in high school) Endocrine: No HEENT: No Cancer: No Psychosocial: No Integumentary: No Physical Exam Vital Signs Vital Signs - First Documented 04/11/20 04/11/20 13:08 13:10 Temp 36.1 Pulse 50 Resp 18 B/P (MAP) 164/73 (103) Pulse Ox 95 O2 Delivery Nasal Cannula Capillary Refill : Less Than 3 Seconds Height, Weight, BMI Height: 5'11.00" Weight: 156lbs. oz. 70.094470ue; 22.00 BMI Method:Stated General Appearance: No Apparent Distress, WD/WN HEENT: PERRL/EOMI, Normal ENT Inspection Neck: Full Range of Motion, Normal Inspection, Non Tender, Supple Respiratory: Chest Non Tender, Lungs Clear, Normal Breath Sounds, No Accessory Muscle Use, No Respiratory Distress Cardiovascular: Regular Rate, Rhythm, No Edema, No JVD, Normal Peripheral Pulses Gastrointestinal: Normal Bowel Sounds, No Organomegaly, No Pulsatile Mass, Non Tender, Soft Extremity: Normal Capillary Refill, Normal Inspection, Non Tender Neurologic/Psychiatric: Alert, Oriented x3, No Motor/Sensory Deficits, parent coach II- XII Norm as Tested Skin: Normal Color, Warm/Dry Lymphatic: No Adenopathy Progress/Results/Core Measures Results/Orders Lab Results Laboratory Tests Test 04/11/20 13:08 Range/Units White Blood Count 8.7 4.3-11.0 10^3/uL Red Blood Count 5.42 4.35-5.85 10^6/uL Hemoglobin 17.5 13.3-17.7 G/DL Hematocrit 51 40-54 % Mean Corpuscular Volume 94 80-99 FL Mean Corpuscular Hemoglobin 32 25-34 PG Mean Corpuscular Hemoglobin Concent 34 32-36 G/DL Red Cell Distribution Width 13.2 10.0-14.5 % Platelet Count 257 130-400 10^3/uL Mean Platelet Volume 8.9 7.4-10.4 FL Neutrophils (%) (Auto) 58 42-75 % Lymphocytes (%) (Auto) 33 12-44 % Monocytes (%) (Auto) 6 0-12 % Eosinophils (%) (Auto) 2 0-10 % Basophils (%) (Auto) 1 0-10 % Neutrophils # (Auto) 5.0 1.8-7.8 X 10^3 Lymphocytes # (Auto) 2.9 1.0-4.0 X 10^3 Monocytes # (Auto) 0.5 0.0-1.0 X 10^3 Eosinophils # (Auto) 0.1 0.0-0.3 10^3/uL Basophils # (Auto) 0.1 0.0-0.1 10^3/uL Sodium Level 143 135-145 MMOL/L Potassium Level 4.2 3.6-5.0 MMOL/L Chloride Level 103 98-107 MMOL/L Carbon Dioxide Level 28 21-32 MMOL/L Anion Gap 12 5-14 MMOL/L Blood Urea Nitrogen 17 7-18 MG/DL Creatinine 1.04 0.60-1.30 MG/DL Estimat Glomerular Filtration Rate > 60 BUN/Creatinine Ratio 16 Glucose Level 87 70-105 MG/DL Calcium Level 9.6 8.5-10.1 MG/DL Corrected Calcium 9.4 8.5-10.1 MG/DL Total Bilirubin 0.3 0.1-1.0 MG/DL Aspartate Amino Transf (AST/SGOT) 16 5-34 U/L Alanine Aminotransferase (ALT/SGPT) 13 0-55 U/L Alkaline Phosphatase 112 40-136 U/L Troponin I < 0.30 <0.30 NG/ML Total Protein 6.8 6.4-8.2 GM/DL Albumin 4.3 3.2-4.5 GM/DL Lipase 16 8-78 U/L My Orders Orders - RICK SMITH DO Cbc With Automated Diff (04/11/20 13:15) Chest 1 View Ap/Pa Only (04/11/20 13:15) Ekg Tracing (04/11/20 13:15) Comprehensive Metabolic Panel (04/11/20 13:15) O2 (04/11/20 13:15) Monitor-Rhythm Ecg Trace Only (04/11/20 13:15) Lipid Panel (04/12/20 06:00) Aspirin Chewable Tablet (Baby Aspirin Ch (04/11/20 13:15) Nitroglycerin 0.4 Mg Btl 25's (Nitrostat (04/11/20 13:15) Ed Iv/Invasive Line Start (04/11/20 13:15) Lipase (04/11/20 13:15) Troponin I Fs (04/11/20 13:15) Troponin I Fs (04/11/20 15:15) Medications Given in ED Current Medications Medications Dose Ordered Sig/Herrera Route Start Time Stop Time Status Last Admin Dose Admin Aspirin 324 mg ONCE ONCE PO 04/11/20 13:15 04/11/20 13:19 DC 04/11/20 13:26 324 MG Nitroglycerin 0.4 mg UD PRN SL 04/11/20 13:15 04/11/20 13:28 0.4 MG Vital Signs/I&O 04/11/20 04/11/20 13:08 13:10 Temp 36.1 Pulse 50 Resp 18 B/P (MAP) 164/73 (103) Pulse Ox 95 96 O2 Delivery Nasal Cannula Blood Pressure Mean: 103 Progress Progress Note : Progress Note Patient with a history of known ACS now presents with a worsening effort related chest pain. Still smoking marginally compliant. Initially he was counseled that he would probably require admission for further evaluation climbed plan will be risk stratification and serial troponins here Oertli ongoing negotiation for admission for workup Initial ECG Impression Date: April 11, 2020 Initial ECG Impression Time: 12:58 Initial ECG Rate: 41 Initial ECG Rhythm: S.Joe (2:1 AV block ) Initial ECG Impression: 2nd Degree AV Block Initial ECG Comparisson: Changed Departure Communication (Admissions) Time/Spoke to Consulting Phy: 14:15 Recommended hospitalist admission and will see in consult Patient's pain-free and hemodynamically stable is agreeable to be transferred to [place] to be admitted Impression Primary Impression: ACS (acute coronary syndrome) Additional Impression: Second degree atrioventricular block Disposition: ADMITTED INPATIENT Condition: Stable Admissions Decision to Admit Reason: Admit from ER (General) Decision to Admit/Date: April 11, 2020 Time/Decision to Admit Time: 13:43 Transfer Transfer Reason: Exceeds level of care Time Spoke to Accepting Phy: 14:20 Transfer Progress Notes Presented the case exception admission stepdown unit Transfer Facility: [facility] Method of Transfer: EMS (ALS) Departure-Patient Inst. Referrals: JERROD ARMAS MD (PCP/Family) Primary Care Physician RICK SMITH DO April 11, 2020 13:24
[2020-04-11 13:26] LABS: HEMATOCRIT 51 % (40-54); HEMOGLOBIN 17.5 G/DL (13.3-17.7); MEAN CORPUSCULAR HEMOGLOBIN 32 PG (25-34); WHITE BLOOD COUNT 8.7 10^3/uL (4.3-11.0)
[2020-04-11 13:27] LABS: BASOPHILS % (AUTO) 1 % (0-10); EOSINOPHILS % (AUTO) 2 % (0-10); LYMPHOCYTES % (AUTO) 33 % (12-44); MEAN CORPUSCULAR HGB CONC 34 G/DL (32-36); MEAN CORPUSCULAR VOLUME 94 FL (80-99); MEAN PLATELET VOLUME 8.9 FL (7.4-10.4); MONOCYTES % (AUTO) 6 % (0-12); NEUTROPHILS % (AUTO) 58 % (42-75); PLATELET COUNT 257 10^3/uL (130-400); RED CELL DISTRIBUTION WIDTH 13.2 % (10.0-14.5)
[2020-04-11 13:28] LABS: BASOPHILS # (AUTO) 0.1 10^3/uL (0.0-0.1); EOSINOPHILS # (AUTO) 0.1 10^3/uL (0.0-0.3); LYMPHOCYTES # (AUTO) 2.9 X 10^3 (1.0-4.0); MONOCYTES # (AUTO) 0.5 X 10^3 (0.0-1.0)
--- NOTE | 2020-04-11 13:32 | Diagnostic Imaging Report ---
INDICATION: Chest pain. EXAMINATION: Portable chest at 1:24 PM. FINDINGS: The heart size and pulmonary vascularity are normal. The lungs are clear. There are no effusions or pneumothoraces. IMPRESSION: Negative chest. Dictated by: Dictated on workstation # [id number]
[2020-04-11 13:42] LABS: ALANINE AMINOTRANSFERASE 13 U/L (0-55); ALBUMIN 4.3 GM/DL (3.2-4.5); ALKALINE PHOSPHATASE 112 U/L (40-136); BILIRUBIN,TOTAL 0.3 MG/DL (0.1-1.0); BUN/CREATININE RATIO 16; CALCIUM 9.6 MG/DL (8.5-10.1); CARBON DIOXIDE 28 MMOL/L (21-32); CHLORIDE 103 MMOL/L (98-107); CREATININE SERUM 1.04 MG/DL (0.60-1.30); GFR ESTIMATED > 60; GLUCOSE 87 MG/DL (70-105); LIPASE 16 U/L (8-78); POTASSIUM 4.2 MMOL/L (3.6-5.0); SODIUM 143 MMOL/L (135-145); TOTAL PROTEIN 6.8 GM/DL (6.4-8.2)
[2020-04-11] MEDS ORDERED: CATHETER FLUSH 10 ML SYR IV PRN (16:30)
[2020-04-11] MEDS ORDERED: ACETAMINOPHEN 325 MG TABLET PO PRN (17:00)
--- NOTE | 2020-04-11 17:00 | NUR ---
MAX ORDOÑEZ admitted to room CU12-2, with an admitting diagnosis of Chest pain, on 04/11/20 from [place] via cart, accompanied by staff.MAX ORDOÑEZ introduced to surroundings, call light, bed controls, phone, TV, temperature control, lights, meal times, smoking policy, visitor policy, side rail policy, bathrooms and showers. Patient Rights given to patient in the handbook. MAX ORDOÑEZ verbalizes understanding that [facility] is not responsible for the loss or damage to any personal effects or valuables that are kept in the patients posession during their hospitalization. The following Patient Care Plans were discussed with the pt: Discharge Planning. MAX ORDOÑEZ verbalizes understanding of Interdisciplinary Patient Education. Patient and/or family were informed about the Rapid Response Team and its purpose.
[2020-04-11] MEDS: NICOTINE 21 MG (NICODERM) PATCH TD SCH (17:17)
--- NOTE | 2020-04-11 17:25 | Consultation-Cardiology ---
HPI-Cardiology Cardiology Consultation: Date of Consultation 04/11/20 Time Seen by a Provider: 16:10 Date of Admission Attending Physician Olga Luong MD Admitting Physician Mendoza Truong MD Consulting Physician MARCUS ZHU MD, MA, FACP, FACC, FSCAI, CCDS HPI: Chief Complaint: CC: Chest discomfort HPI 54 yo man with approx 15 min of chest discomfort and shortness of breath with exertion while at work, gradually resolving with rest, non-radiating. Chest discomfort mild to mod, midchest in location, somewhat reminiscent of previous angina. Has not experienced such discomfort in the recent past. Has chronic, exertional shortness of breath that remains unchanged. Denies palp or syncope. Does note some loss of stamina recently. Denies leg swelling Review of Systems-Cardiology Review of Systems Constitutional: tiredness; No weight loss, No weight gain Eyes: No vision change Ears/Nose/Throat: No ear discharge, No nasal drainage, No recent hearing loss Respiratory: As described under HPI Cardiovascular: As described under HPI Gastrointestinal: No constipation, No diarrhea, No nausea, No vomiting Genitourinary: No dysuria, No hematuria, No urine frequency changes Musculoskeletal: No back pain, No joint pain Skin: No rash, No ulcerations Psychiatric/Neurological: No focal weakness, No syncope Hematologic: No bleeding abnormalities UOQ-Ilntmk-Aghfiy Hx Patient Social History Alcohol Use: Denies Use Recreational Drug Use: No Type Used: Cigarettes 2nd Hand Smoke Exposure: Yes Recent Foreign Travel: No Recent Infectious Disease Expo: No Hospitalization with Isolation: Denies Past Medical History PMH As described under Assessment. Family Medical History Family Medical History: Father had IA at age greater than 60 Allergies and Home Medications Allergies Coded Allergies: Penicillins (Verified Allergy, Intermediate, Hives, 04/11/20) Patient Home Medication List Home Medication List Reviewed: Yes Physical Exam-Cardiology Physical Exam Vital Signs/I&O 04/11/20 04/11/20 04/11/20 04/11/20 13:08 13:10 14:59 16:19 Temp 36.1 36.7 Pulse 50 40 43 Resp 18 18 20 B/P (MAP) 164/73 (103) 155/79 142/83 Pulse Ox 95 96 94 94 O2 Delivery Nasal Cannula Room Air Room Air Capillary Refill : Less Than 3 Seconds Data Review Labs Laboratory Tests 04/11/20 13:08: White Blood Count 8.7, Red Blood Count 5.42, Hemoglobin 17.5, Hematocrit 51, Mean Corpuscular Volume 94, Mean Corpuscular Hemoglobin 32, Mean Corpuscular Hemoglobin Concent 34, Red Cell Distribution Width 13.2, Platelet Count 257, Mean Platelet Volume 8.9, Neutrophils (%) (Auto) 58, Lymphocytes (%) (Auto) 33, Monocytes (%) (Auto) 6, Eosinophils (%) (Auto) 2, Basophils (%) (Auto) 1, Neutrophils # (Auto) 5.0, Lymphocytes # (Auto) 2.9, Monocytes # (Auto) 0.5, Eosinophils # (Auto) 0.1, Basophils # (Auto) 0.1, Sodium Level 143, Potassium Level 4.2, Chloride Level 103, Carbon Dioxide Level 28, Anion Gap 12, Blood Urea Nitrogen 17, Creatinine 1.04, Estimat Glomerular Filtration Rate > 60, BUN/Creatinine Ratio 16, Glucose Level 87, Calcium Level 9.6, Corrected Calcium 9.4, Total Bilirubin 0.3, Aspartate Amino Transf (AST/SGOT) 16, Alanine Aminotransferase (ALT/SGPT) 13, Alkaline Phosphatase 112, Troponin I < 0.30, Total Protein 6.8, Albumin 4.3, Lipase 16 A/P-Cardiology Assessment/Admission Diagnosis Chest discomfort suggestive of angina CAD. H/o cor stents. Does not know details. Carries a card that states a Promus 3 x 12 was placed to mid LCX at [facility] approx 4 yrs ago Chronic smoker of cigarettes 2:1 AV block and RBBB on ECG. Vent rate in the low 40s Discussion and Recomendations * Serial enzymes. If positive, consider cath * Would probably need perm pacemaker, given 2:1 AV block in the presence of RBBB (which suggests infra-His block) and symptoms of diminishing stamina * Continue ASA and statin * Echo * Further recs to be based on hosp course Clinical Quality Measures AMI/AHF: ASA po Prior to arrival: No DVT/VTE Risk/Contraindication: Risk Factor Score Per Nursin RFS Level Per Nursing on Admit: 2=Moderate MARCUS ZHU MD FACP FAC CCDS April 11, 2020 17:25
[2020-04-11] MEDS: CATHETER FLUSH 10 ML SYR IV SCH (20:46)
[2020-04-12] VITALS (10 sets, daily range): BP systolic 117–163; BP diastolic 67–88
[2020-04-12 04:00] LABS: BASOPHILS # (AUTO) 0.1 10^3/uL (0.0-0.1); BASOPHILS % (AUTO) 0 % (0-10); EOSINOPHILS # (AUTO) 0.3 10^3/uL (0.0-0.3); EOSINOPHILS % (AUTO) 2 % (0-10); HEMATOCRIT 45 % (40-54); LYMPHOCYTES # (AUTO) 2.8 X 10^3 (1.0-4.0); LYMPHOCYTES % (AUTO) 21 % (12-44); MEAN CORPUSCULAR HEMOGLOBIN 31 PG (25-34); MEAN CORPUSCULAR HGB CONC 35 G/DL (32-36); MEAN CORPUSCULAR VOLUME 88 FL (80-99); MEAN PLATELET VOLUME 9.6 FL (7.4-10.4); MONOCYTES # (AUTO) 1.2 X 10^3 (0.0-1.0); MONOCYTES % (AUTO) 9 % (0-12); NEUTROPHILS # (AUTO) 9.1 X 10^3 (1.8-7.8); NEUTROPHILS % (AUTO) 68 % (42-75); PLATELET COUNT 286 10^3/uL (130-400); RED CELL DISTRIBUTION WIDTH 12.8 % (10.0-14.5); WHITE BLOOD COUNT 13.3 10^3/uL (4.3-11.0)
[2020-04-12 04:11] LABS: INR 0.9 (0.8-1.4); PROTHROMBIN TIME PATIENT 12.9 SEC (12.2-14.7)
[2020-04-12 04:13] LABS: ALBUMIN 4.4 GM/DL (3.2-4.5)
[2020-04-12 04:14] LABS: CHLORIDE 106 MMOL/L (98-107); POTASSIUM 3.8 MMOL/L (3.6-5.0); SODIUM 138 MMOL/L (135-145)
[2020-04-12 04:15] LABS: CALCIUM 9.1 MG/DL (8.5-10.1)
[2020-04-12 04:16] LABS: GLUCOSE 83 MG/DL (70-105); TOTAL PROTEIN 6.9 GM/DL (6.4-8.2)
[2020-04-12 04:17] LABS: CARBON DIOXIDE 21 MMOL/L (21-32)
[2020-04-12 04:18] LABS: BILIRUBIN,TOTAL 0.4 MG/DL (0.1-1.0)
[2020-04-12 04:19] LABS: ALKALINE PHOSPHATASE 75 U/L (40-136); CREATININE SERUM 0.93 MG/DL (0.60-1.30); GFR ESTIMATED > 60
[2020-04-12 04:20] LABS: BUN/CREATININE RATIO 14
[2020-04-12 04:23] LABS: ALANINE AMINOTRANSFERASE 30 U/L (0-55)
[2020-04-12 04:52] LABS: TRIGLYCERIDES 102 MG/DL (<150); VLDL CHOLESTEROL 20 MG/DL (5-40)
[2020-04-12 04:57] LABS: CHOLESTEROL 144 MG/DL (< 200); HDL CHOLESTEROL 46 MG/DL (40-60)
[2020-04-12] MEDS: CATHETER FLUSH 10 ML SYR IV SCH ×3 (06:16→22:47)
--- NOTE | 2020-04-12 08:20 | Progress Note - Cardiology ---
Cardiology SOAP Progress Note Objective: I&O/Vital Signs 04/11/20 04/11/20 04/11/20 04/11/20 21:00 21:00 22:00 23:00 Pulse 43 41 41 Resp 18 13 21 B/P (MAP) 161/85 (110) 139/78 (98) 115/58 (77) Pulse Ox 98 95 95 93 O2 Delivery Room Air Room Air Room Air Room Air 04/12/20 04/12/20 04/12/20 04/12/20 00:00 00:00 00:00 01:00 Temp 36.1 Pulse 41 40 Resp 20 B/P (MAP) 144/73 (96) Pulse Ox 93 98 O2 Delivery Room Air Room Air 04/12/20 04/12/20 04:00 04:00 Pulse 70 Resp 19 B/P (MAP) 135/79 (97) Pulse Ox 91 97 O2 Delivery Room Air Room Air 04/12/20 00:00 Intake Total 500 ml Output Total 900 ml Balance -400 ml Weight (Pounds): 156 Weight (Calculated Kilograms): 70.241594 Results/Procedures: Labs Laboratory Tests 04/11/20 13:08: White Blood Count 8.7, Red Blood Count 5.42, Hemoglobin 17.5, Hematocrit 51, Mean Corpuscular Volume 94, Mean Corpuscular Hemoglobin 32, Mean Corpuscular Hemoglobin Concent 34, Red Cell Distribution Width 13.2, Platelet Count 257, Mean Platelet Volume 8.9, Neutrophils (%) (Auto) 58, Lymphocytes (%) (Auto) 33, Monocytes (%) (Auto) 6, Eosinophils (%) (Auto) 2, Basophils (%) (Auto) 1, Neutrophils # (Auto) 5.0, Lymphocytes # (Auto) 2.9, Monocytes # (Auto) 0.5, Eo sinophils # (Auto) 0.1, Basophils # (Auto) 0.1, Sodium Level 143, Potassium Level 4.2, Chloride Level 103, Carbon Dioxide Level 28, Anion Gap 12, Blood Urea Nitrogen 17, Creatinine 1.04, Estimat Glomerular Filtration Rate > 60, BUN/Creatinine Ratio 16, Glucose Level 87, Calcium Level 9.6, Corrected Calcium 9.4, Total Bilirubin 0.3, Aspartate Amino Transf (AST/SGOT) 16, Alanine Aminotransferase (ALT/SGPT) 13, Alkaline Phosphatase 112, Troponin I < 0.30, Total Protein 6.8, Albumin 4.3, Lipase 16 04/11/20 18:55: Troponin I < 0.028 04/12/20 03:43: White Blood Count 13.3H, Red Blood Count 5.15, Hemoglobin 16.0, Hematocrit 45, Mean Corpuscular Volume 88, Mean Corpuscular Hemoglobin 31, Mean Corpuscular Hemoglobin Concent 35, Red Cell Distribution Width 12.8, Platelet Count 286, Mean Platelet Volume 9.6, Neutrophils (%) (Auto) 68, Lymphocytes (%) (Auto) 21, Monocytes (%) (Auto) 9, Eosinophils (%) (Auto) 2, Basophils (%) (Auto) 0, Neutrophils # (Auto) 9.1H, Lymphocytes # (Auto) 2.8, Monocytes # (Auto) 1.2H, Eo sinophils # (Auto) 0.3, Basophils # (Auto) 0.1, Sodium Level 138, Potassium Level 3.8, Chloride Level 106, Carbon Dioxide Level 21, Anion Gap 11, Blood Urea Nitrogen 13, Creatinine 0.93, Estimat Glomerular Filtration Rate > 60, BUN/Creatinine Ratio 14, Glucose Level 83, Calcium Level 9.1, Corrected Calcium 8.8, Total Bilirubin 0.4, Aspartate Amino Transf (AST/SGOT) 26, Alanine Aminotransferase (ALT/SGPT) 30, Alkaline Phosphatase 75, Total Protein 6.9, Albumin 4.4, Prothrombin Time 12.9, INR Comment 0.9, Activated Partial Thromboplast Time 29, Magnesium Level 2.0, Triglycerides Level 102, Cholesterol Level 144, LDL Cholesterol Direct 102, VLDL Cholesterol 20, HDL Cholesterol 46 Laboratory Tests 04/11/20 13:08 04/12/20 03:43 Laboratory Tests 04/11/20 13:08 04/12/20 03:43 A/P: Assessment: Chest discomfort suggestive of angina CAD. Cardiac cath on April [address] Quintanilla states a Promus 3 x 12 was placed to mid LCX at [facility]. Cardiac cath report of May [address] Quintanilla at [facility] at which time no intervention was indicated and decision to treat medically. Chronic smoker of cigarettes 2:1 AV block and RBBB on ECG. Vent rate in the low 40s Plan: * Serial enzymes. If positive, consider cath * Would probably need perm pacemaker, given 2:1 AV block in the presence of RBBB (which suggests infra-His block) and symptoms of diminishing stamina * Continue ASA and statin * Echo * Further recs to be based on hosp course Clinical Quality Measures AMI/AHF: ASA po Prior to arrival: No JODIE BRITO April 12, 2020 08:20
[2020-04-12] MEDS: NICOTINE 21 MG (NICODERM) PATCH TD SCH (08:28)
[2020-04-12] MEDS ORDERED: NICOTINE 21 MG (NICODERM) PATCH TD SCH (09:00)
--- NOTE | 2020-04-12 09:01 | Progress Note - Cardiology ---
Cardiology SOAP Progress Note Subjective: No cp since admission No palp or syncope No focal weakness No shortness of breath No n/v/d Gen malaise, mild Objective: I&O/Vital Signs 04/11/20 04/11/20 04/11/20 04/11/20 21:00 21:00 22:00 23:00 Pulse 43 41 41 Resp 18 13 21 B/P (MAP) 161/85 (110) 139/78 (98) 115/58 (77) Pulse Ox 98 95 95 93 O2 Delivery Room Air Room Air Room Air Room Air 04/12/20 04/12/20 04/12/20 04/12/20 00:00 00:00 00:00 01:00 Temp 36.1 Pulse 41 40 Resp 20 B/P (MAP) 144/73 (96) Pulse Ox 93 98 O2 Delivery Room Air Room Air 04/12/20 04/12/20 04/12/20 04:00 04:00 08:00 Temp 36.4 Pulse 70 44 Resp 19 16 B/P (MAP) 135/79 (97) 117/82 (94) Pulse Ox 91 97 92 O2 Delivery Room Air Room Air Room Air 04/12/20 00:00 Intake Total 500 ml Output Total 900 ml Balance -400 ml Weight (Pounds): 156 Weight (Calculated Kilograms): 70.862763 Constitutional: AAO x 3, well-developed, well-nourished Respiratory: No accessory muscle use; other (good bilat air entry) Cardiovascular: regular rate-rhythm, S1 and S2, systolic murmur (soft JOHN at card base) Gastrointestional: No tender; soft; No guarding, No rebound; audible bowel sounds Extremities: No clubbing, No cyanosis, No significant edema Neurologic/Psychiatric: alert, oriented x 3, other (moves all limbs equally) Skin: No rash on exposed areas, No ulcerations on exposed areas Results/Procedures: Labs Laboratory Tests 04/11/20 13:08: White Blood Count 8.7, Red Blood Count 5.42, Hemoglobin 17.5, Hematocrit 51, Mean Corpuscular Volume 94, Mean Corpuscular Hemoglobin 32, Mean Corpuscular Hemoglobin Concent 34, Red Cell Distribution Width 13.2, Platelet Count 257, Mean Platelet Volume 8.9, Neutrophils (%) (Auto) 58, Lymphocytes (%) (Auto) 33, Monocytes (%) (Auto) 6, Eosinophils (%) (Auto) 2, Basophils (%) (Auto) 1, Neutrophils # (Auto) 5.0, Lymphocytes # (Auto) 2.9, Monocytes # (Auto) 0.5, Eosinophils # (Auto) 0.1, Basophils # (Auto) 0.1, Sodium Level 143, Potassium Level 4.2, Chloride Level 103, Carbon Dioxide Level 28, Anion Gap 12, Blood Urea Nitrogen 17, Creatinine 1.04, Estimat Glomerular Filtration Rate > 60, BUN/Creatinine Ratio 16, Glucose Level 87, Calcium Level 9.6, Corrected Calcium 9.4, Total Bilirubin 0.3, Aspartate Amino Transf (AST/SGOT) 16, Alanine Aminotransferase (ALT/SGPT) 13, Alkaline Phosphatase 112, Troponin I < 0.30, Total Protein 6.8, Albumin 4.3, Lipase 16 04/11/20 18:55: Troponin I < 0.028 04/12/20 03:43: White Blood Count 13.3H, Red Blood Count 5.15, Hemoglobin 16.0, Hematocrit 45, Mean Corpuscular Volume 88, Mean Corpuscular Hemoglobin 31, Mean Corpuscular Hemoglobin Concent 35, Red Cell Distribution Width 12.8, Platelet Count 286, Mean Platelet Volume 9.6, Neutrophils (%) (Auto) 68, Lymphocytes (%) (Auto) 21, Monocytes (%) (Auto) 9, Eosinophils (%) (Auto) 2, Basophils (%) (Auto) 0, Neutrophils # (Auto) 9.1H, Lymphocytes # (Auto) 2.8, Monocytes # (Auto) 1.2H, Eosinophils # (Auto) 0.3, Basophils # (Auto) 0.1, Sodium Level 138, Potassium Level 3.8, Chloride Level 106, Carbon Dioxide Level 21, Anion Gap 11, Blood Urea Nitrogen 13, Creatinine 0.93, Estimat Glomerular Filtration Rate > 60, BUN/Creatinine Ratio 14, Glucose Level 83, Calcium Level 9.1, Corrected Calcium 8.8, Total Bilirubin 0.4, Aspartate Amino Transf (AST/SGOT) 26, Alanine Aminotransferase (ALT/SGPT) 30, Alkaline Phosphatase 75, Total Protein 6.9, A lbumin 4.4, Prothrombin Time 12.9, INR Comment 0.9, Activated Partial Thromboplast Time 29, Magnesium Level 2.0, Triglycerides Level 102, Cholesterol Level 144, LDL Cholesterol Direct 102, VLDL Cholesterol 20, HDL Cholesterol 46 Laboratory Tests 04/11/20 13:08 04/12/20 03:43 A/P: Assessment: Chest discomfort suggestive of angina CAD. Cardiac cath in April [address] Quintanilla states a Promus 3 x 12 was placed to mid LCX at [facility]. Cardiac cath report of May [address] Quintanilla at [facility] at which time no intervention was indicated and decision to treat medically. Chronic smoker of cigarettes 2:1 AV block and RBBB on ECG and brief episodes of complete heart block Plan: * We reviewed and discussed his card records (summarized above) * Given chest pains in the setting of known CAD and continuing risk factors, we recommend card cath. Rationale, procedure, risks, benefits, potential complications, and alternatives reviewed. He understands wishes to proceed * At time of cath, will also place temp pacemaker to later be converted to perm pacemaker. Rationale, procedure, risks, benefits, potential complications, and alternatives reviewed. He understands wishes to proceed * Echo * Further recs to be based on hosp course Clinical Quality Measures AMI/AHF: ASA po Prior to arrival: MARCUS Alas MD FACP FAC CCDS April 12, 2020 09:01
[2020-04-12] MEDS ORDERED: LIDOCAINE 1% INJ 20 ML 20 ML VIAL ONE ×2 (09:20→15:07)
[2020-04-12] MEDS ORDERED: HEParin (CATH LAB) 2,000 ML IV ONE (09:20)
[2020-04-12] MEDS ORDERED: NS IV 1000 ML 1,000 ML ONE (09:21)
[2020-04-12] MEDS ORDERED: CYCL10TA9 PO (11:07)
[2020-04-12] MEDS ORDERED: IBUP-1780 PO (11:07)
[2020-04-12] MEDS ORDERED: MIDAZOLAM 5 MG/5 ML (VERSED) VIAL ONE ×3 (11:19→16:15)
[2020-04-12] MEDS ORDERED: fentaNYL INJECTION 100 MCG/2 ML AMP ONE ×3 (11:19→16:16)
--- NOTE | 2020-04-12 11:29 | NUR ---
SPOKE WITH THE PT AND WENT THRU THE EXT MED HISTORY COMPLETE THE MED REC ALL MEDICATIONS SHOW ON THE EXT MED HISTORY THE PT WAS TALKING ABOUT A BLOOD PRESSURE HE TAKES BUT COULD NOT REMEMBER THE NAME OF IT, WHEN I INQUIRED ABOUT WHEN HE LAST FILLED IT HE ADMITTED IT HAS BEEN A LONG TIME AND HE WASNT CURRENTLY TAKING ANYTHING FOR BLOOD PRESSURE. OTC MEDS: ASPIRIN 81
[2020-04-12] MEDS ORDERED: NS IV 1000 ML 1,000 ML IV SCH (12:15)
--- NOTE | 2020-04-12 13:01 | Cardiac Procedure Note-CS/ASA ---
Pre-Procedure Note Pre-Op Procedure Note H&P Reviewed The H&P was reviewed, patient examined and no changes noted. Date H&P Reviewed: April 12, 2020 Time H&P Reviewed: 08:00 Conscious Sedation Pre-Proced Time 08:00 ASA Score 3 For ASA 3 and 4: Consider anesthesia and medical clearance. Also, for patients with a history of failed moderate sedation consider anesthesia. Airway Lungs Heart ASA score ASA 1: a normal healthy patient ASA 2: a patient with a mild systemic disease (mid diabetes, controlled hypertension, obesity ASA 3: a patient with a severe systemic disease that limits activity (angina, COPD, prior Myocardial infarction) ASA 4: a patient with an incapacitating disease that is a constant threat to life (CHF, renal failure) ASA 5: a moribund patient not expected to survive 24 hrs. (ruptured aneurysm) ASA 6: a declared brain- patient whose organs are being harvested. For emergent operations, add the letter E after the classification Mallampati Classification Grade 1 Sedation Plan Analgesia, Amnesia, Plan communicated to team members, Discussed options with patient/fam, Discussed risks with patient/fam The patient is an appropriate candidate to undergo the planned procedure, sedation, and anesthesia. The patient immediately re-assessed prior to indication. MARCUS ZHU MD FACP FAC CCDS April 12, 2020 13:01
[2020-04-12] MEDS ORDERED: PATIENT MAY USE OWN MEDS, ALL PO SCH (13:15)
--- NOTE | 2020-04-12 14:37 | NUR ---
This nurse spoke with I reported to him that the carotid ultra sound technician reported to me that the left ICA is 100% occluded. No new orders received att.
--- NOTE | 2020-04-12 14:46 | History & Physical-Hospitalist ---
History of Present Illness HPI/Chief Complaint Elder Meza is a 54-year-old male with past medical history of coronary artery disease, hyperlipidemia, current smoker, who presented with chest pain. He reports that the pain was in the center of his chest and nonradiating. He says it was associated with nausea and vomiting. He denies any radiation to the neck, jaw, or arms. He had associated shortness of breath. He denies any orthopnea or leg swelling. Upon the time of my examination he said his chest pain has resolved. He smokes a pack of cigarettes a day. Source: patient Exam Limitations: no limitations Date Seen 04/12/20 Time Seen by a Provider: 08:40 Attending Physician Nasim Gauthier MD PCP Mendoza Truong MD Referring Physician Date of Admission April 11, 2020 at 14:48 Home Medications & Allergies Home Medications Reviewed patient Home Medication Reconciliation performed by pharmacy medication reconciliations cardiopulmonary technician and eeg tech and/or nursing. Patients Allergies have been reviewed. Allergies Allergies Coded Allergies Penicillins (Verified Allergy, Intermediate, Hives, 04/11/20) Past Mswzqhb-Bdkdit-Avgmvh Hx Past Med/Social Hx: Reviewed Nursing Past Med/Soc Hx Patient Social History Alcohol Use: Denies Use Recreational Drug Use: No Type Used: Cigarettes 2nd Hand Smoke Exposure: Yes Recent Foreign Travel: No Contact w/other who traveled: No Recent Hopitalizations: No Recent Infectious Disease Expo: No Seasonal Allergies Seasonal Allergies: No Past Medical History Cardiac: High Cholesterol Review of Systems Constitutional: no symptoms reported EENTM: no symptoms reported Respiratory: short of breath Cardiovascular: chest pain Gastrointestinal: nausea Genitourinary: no symptoms reported Musculoskeletal: no symptoms reported Skin: no symptoms reported Psychiatric/Neurological: No Symptoms Reported Physical Exam Physical Exam Vital Signs Vital Signs - First Documented 04/11/20 04/11/20 13:08 13:10 Temp 36.1 Pulse 50 Resp 18 B/P (MAP) 164/73 (103) Pulse Ox 95 O2 Delivery Nasal Cannula Capillary Refill : Less Than 3 Seconds Height, Weight, BMI Height: 5'11.00" Weight: 156lbs. oz. 70.740438ds; 22.39 BMI Method:Stated General Appearance: No Apparent Distress, WD/WN HEENT: PERRL/EOMI, Pharynx Normal Neck: Normal Inspection, Supple Respiratory: Lungs Clear, Normal Breath Sounds, No Respiratory Distress Cardiovascular: No Edema, No Murmur, Bradycardia Gastrointestinal: Normal Bowel Sounds, Non Tender, Soft Extremity: Normal Inspection, Non Tender, No Pedal Edema Neurologic/Psychiatric: Alert, Oriented x3, No Motor/Sensory Deficits, Normal Mood/Affect Skin: Normal Color, Warm/Dry Results Results/Procedures Labs Laboratory Tests 04/11/20 13:08 04/12/20 03:43 Patient resulted labs reviewed. Imaging: Reviewed Imaging Report Assessment/Plan Admission Diagnosis Heart block Admission Status: Inpatient Order (span 2 midnights) Reason for Inpatient Admission: Heart block requiring cardiac intervention, evaluation of chest pain Assessment and Plan Atrioventricular block Chest pain Coronary artery disease Hyperlipidemia Tobacco abuse EKG on arrival with second-degree AV block Troponin negative Cardiology consulted, appreciate assistance Planning for left heart catheterization today Planning to place temporary pacemaker at the time of heart cath Continue statin Nicotine patch DVT prophylaxis: Lovenox Clinical Quality Measures AMI/AHF: ASA po Prior to arrival: No DVT/VTE Risk/Contraindication: Risk Factor Score Per Nursin RFS Level Per Nursing on Admit: 2=Moderate NASIM GAUTHIER MD April 12, 2020 14:46
--- NOTE | 2020-04-12 14:56 | Diagnostic Imaging Report ---
PROCEDURE: US carotid duplex, bilateral. TECHNIQUE: Multiple real-time grayscale images were obtained over the carotid arteries in various projections, bilaterally. Additional spectral analysis and color Doppler duplex images were also obtained. INDICATION: History of occluded carotid artery. CORRELATION STUDY: None FINDINGS: On the right, there are scattered atherosclerotic change particularly at the carotid bifurcations extending into the internal and external carotid arteries. There is no appreciable elevated velocity or findings to suggest a focal area of stenosis. External carotid artery is patent. On the left, there is atherosclerotic change throughout the common carotid artery. There is absence of any significant detectable flow within the left internal carotid artery which appears to be completely occluded. External carotid artery patent. Vertebral arteries antegrade direction of flow. DOPPLER (peak systolic velocity M/S Right Left CCA 0.90 0.61 ICA Proximal 0.65 OCCLUDED ICA Mid 0.82 OCCLUDED ICA Distal 0.68 OCCLUDED RATIO 0.91 ECA 0.90 1.43 VERT 0.77 0.62 IMPRESSION: 1. 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 2. Mild atherosclerotic change about the right common carotid artery as well as origin internal and external carotid arteries. However there are no findings to suggest significant stenosis of the right internal carotid artery at this time. Report was faxed/called to Jodi/branch lending officer of Dr. Rose by merlin at 2:55pm. Parameters based on the consensus panel Gudino-Scale and Doppler ultrasound criteria published September 2003, Radiology, Volume 229. Dictated by: Dictated on workstation # [id number]
[2020-04-12] MEDS ORDERED: HEParin (CATH LAB) 1,000 ML IV ONE (15:07)
[2020-04-12] MEDS ORDERED: NS IV 1000 ML 1,000 ML IV ONE (15:10)
[2020-04-12] MEDS: NS IV 1000 ML 1,000 ML IV SCH (15:10)
[2020-04-12] MEDS ORDERED: NS (IVPB) 50 ML ONE (15:12)
[2020-04-12] MEDS ORDERED: ceFAZolin INJECTION 1,000 MG ONE (15:13)
[2020-04-12] MEDS ORDERED: BACITRACIN 50000 UNITS/500 ML NS IR ONE ×2 (15:15)
[2020-04-12] MEDS ORDERED: ceFAZolin INJECTION 1,000 MG VIAL IV ONE (15:15)
[2020-04-12] MEDS ORDERED: BACITRACIN INJECTION 50,000 UNIT, SODIUM CHLORIDE 0.9% IRRIGATIO 500 ML IR ONE ×2 (15:15)
--- NOTE | 2020-04-12 15:43 | CARDIAC CATHETERIZATION ---
DATE OF SERVICE: 04/12/2020 CARDIAC CATHETERIZATION REPORT The patient is a 54-year-old man, who is known to have coronary artery disease and has had stenting of the left circumflex artery in 2016. He presented with chest pain and was also found to have 2:1 AV block with intermittent complete heart block. Because of history of coronary artery disease and symptoms of angina, cardiac catheterization was carried out after having obtained informed consent. DESCRIPTION OF PROCEDURE: The patient was brought to the cardiac catheterization laboratory in a fasting state. Right groin was prepared and draped in the usual sterile fashion. Lidocaine 1% was used for local anesthesia. Modified Seldinger technique was used to advance a 5-Panamanian sheath in the right femoral artery, 5-Panamanian JL4 catheter for coronary angiography, 5-Panamanian JR4 catheter for right coronary angiography, 5-Panamanian pigtail catheter was used for left heart catheterization and left ventricular angiography. Following completion of the diagnostic procedure, we gained access into the right femoral vein with a 5-Panamanian sheath using the Seldinger technique. We tried to advance a temporary balloon flotation lead to the right ventricular apex, but despite multiple attempts, we were not able to do so. Because the patient was maintaining stable hemodynamics and the heart rate was in the 40s, we abandoned further attempts because the patient is to receive a permanent dual chamber pacemaker later today. HEMODYNAMICS: Left ventricular end-diastolic pressure following coronary angiography was 14 mmHg. There was no significant pressure gradient on pullback across the aortic valve. The ascending aortic pressure was 134/78 CORONARY ANGIOGRAPHY: Left main coronary artery is free of significant disease. Left anterior descending and left circumflex arteries have mild plaques. Right coronary artery has a patent stent in its mid portion. Right coronary artery is dominant and has mild plaques. LEFT VENTRICULAR ANGIOGRAPHY: Left ventricular angiography was carried out in the right anterior oblique projection. Global left ventricular systolic function is normal. No regional wall motion abnormalities were seen. Left ventricular ejection fraction is approximately 60%. CONCLUSIONS: 1. Angiographically mild coronary artery disease. 2. Patent stent in the mid left circumflex that is known to be a drug-eluting stent measuring 3.0 x 15 mm that was placed in 2016 in [place], [place]. 3. Mild elevation of left ventricular end-diastolic pressure. 4. Normal global left ventricular systolic function. DISCUSSION AND RECOMMENDATIONS: For coronary artery disease, we recommend continuing risk factor modification and conservative regimen. He is on aspirin and statins. This is to be continued. We have advised him to refrain from smoking cigarettes. He has 2:1 AV block and intermittent complete heart block. Permanent pacemaker implantation is recommended and will be scheduled. Job ID: [id number] DocumentID: [id number] Dictated Date: 04/12/2020 12:44:47 Director Of Philanthropy Date: 04/12/2020 15:42:21 Dictated By: MARCUS ZHU MD, MA, FACP, FACC, MTDD
[2020-04-12] MEDS ORDERED: VANCOMYCIN INJECTION 1,000 MG in NS (IVPB) 250 ML IV ONE (16:00)
[2020-04-12] MEDS ORDERED: ASPIRIN 81 MG CHEW (CHILDREN'S ASA) PO NR (18:00)
--- NOTE | 2020-04-12 18:05 | NUR ---
Patient back to ICU room 12 att.
--- NOTE | 2020-04-12 18:13 | Diagnostic Imaging Report ---
EXAM: CHEST 1 VIEW, AP/PA ONLY INDICATION: Attempted subclavian vein access. COMPARISON: 04/11/2020. FINDINGS: Normal heart size and central pulmonary vascularity. No focal pulmonary opacity, pleural effusion, or pneumothorax. No acute osseous findings. IMPRESSION: No acute cardiopulmonary findings. Specifically, no pneumothorax is seen. Dictated by: Dictated on workstation # [id number]
--- NOTE | 2020-04-12 19:25 | OPERATIVE REPORT ---
DATE OF SERVICE: 04/11/2020 INDICATIONS: The patient is a 54-year-old man who has 2:1 AV block with occasional intermittent complete heart block. Dual chamber pacemaker was recommended. Informed consent was obtained. DESCRIPTION OF PROCEDURE: He was brought to the cardiac catheterization laboratory in a fasting state. The left prepectoral area was prepared and draped in the usual sterile fashion. Lidocaine 1% was used for local anesthesia. We tried to gain access into the left subclavian vein using the Seldinger technique. This was unsuccessful. We carried out a venogram by injecting contrast to a left arm vein. This did outline the axillary and subclavian veins well, but we still would not able to gain access despite multiple attempts. We tried to locate the vein with ultrasound, but this was not providing adequate images. We do not have a service order clerk present at this time to adjust the settings on the ultrasound machine. We have decided to postpone the procedure until tomorrow and the full staff of the heart center is available and we will attempt the cannulation of the axillary and subclavian vein under ultrasound guidance. We carried out fluoroscopy at the end of the procedure and under fluoroscopy, there does not appear to have been any pneumothorax. The patient tolerated the procedure well. Job ID: [id number] DocumentID: [id number] Dictated Date: 04/12/2020 17:44:40 Material Requirements Worker Date: 04/12/2020 19:24:27 Dictated By: MARCUS ZHU MD, MA, FACP, FACC,
[2020-04-12] MEDS ORDERED: ENOXAPARIN 40 MG/0.4 ML (LOVENOX) SYR SC SCH (21:00)
[2020-04-12] MEDS: ACETAMINOPHEN 325 MG TABLET PO PRN (22:16)
[2020-04-13] VITALS (9 sets, daily range): BP systolic 106–171; BP diastolic 75–98
[2020-04-13] MEDS: ACETAMINOPHEN 325 MG TABLET PO PRN (03:25)
[2020-04-13] MEDS: NS IV 1000 ML 1,000 ML IV SCH (04:26)
[2020-04-13] MEDS: CATHETER FLUSH 10 ML SYR IV SCH ×3 (06:34→22:00)
[2020-04-13] MEDS ORDERED: HEParin (CATH LAB) 1,000 ML IV ONE (06:53)
[2020-04-13] MEDS ORDERED: LIDOCAINE 1% INJ 20 ML 20 ML VIAL ONE (06:53)
[2020-04-13] MEDS ORDERED: VANCOMYCIN INJECTION 1,000 MG in NS (IVPB) 250 ML IV ONE (07:00)
[2020-04-13] MEDS ORDERED: BACITRACIN INJECTION 50,000 UNIT, SODIUM CHLORIDE 0.9% IRRIGATIO 500 ML IR ONE ×4 (07:00→07:30)
[2020-04-13] MEDS: ASPIRIN 81 MG CHEW (CHILDREN'S ASA) PO SCH (09:12)
[2020-04-13] MEDS: NICOTINE 21 MG (NICODERM) PATCH TD SCH (09:12)
[2020-04-13] MEDS: NICOTINE PATCH REMOVAL TP SCH (09:17)
--- NOTE | 2020-04-13 13:27 | Progress Note - Hospitalist ---
Subjective HPI/CC On Admission Date Seen by Provider: April 13, 2020 Time Seen by Provider: 09:30 Elder Meza is a 54-year-old male with past medical history of coronary artery disease, hyperlipidemia, current smoker, who presented with chest pain. He reports that the pain was in the center of his chest and nonradiating. He says it was associated with nausea and vomiting. He denies any radiation to the neck, jaw, or arms. He had associated shortness of breath. He denies any orthopnea or leg swelling. Upon the time of my examination he said his chest pain has resolved. He smokes a pack of cigarettes a day. Subjective/Events-last exam He has no complaints or concerns. He underwent his heart catheterization yesterday that they're unable to place the pacemaker. He denies any chest pain or palpitations. He denies any shortness of breath or cough. He denies any fevers or chills. He denies any abdominal pain, nausea, or vomiting. Objective Exam Vital Signs Vital Signs Date Time Temp Pulse Resp B/P (MAP) Pulse Ox O2 Delivery O2 Flow Rate FiO2 04/13/20 12:00 Room Air 04/13/20 12:00 36.5 65 18 171/81 (111) 92 04/13/20 04:00 2.00 Capillary Refill : Less Than 3 Seconds General Appearance: No Apparent Distress, WD/WN Neck: Normal Inspection, Supple Respiratory: Lungs Clear, Normal Breath Sounds, No Respiratory Distress Cardiovascular: No Edema, No Murmur, Bradycardia Gastrointestinal: Normal Bowel Sounds, Non Tender, Soft Extremity: Normal Inspection, Non Tender, No Pedal Edema Neurologic/Psychiatric: Alert, Oriented x3, No Motor/Sensory Deficits, Normal Mood/Affect Skin: Normal Color, Warm/Dry Results/Procedures Lab Patient resulted labs reviewed. Imaging: Reviewed Imaging Report Assessment/Plan Assessment and Plan Assess & Plan/Chief Complaint Atrioventricular block Coronary artery disease Hyperlipidemia Tobacco abuse Cardiology consulted, appreciate assistance Left heart catheterization with mild coronary artery disease, no intervention required Difficulty with placing pacemaker, planning to attempt placement again today Continue aspirin and statin Nicotine patch DVT prophylaxis: Lovenox Diagnosis/Problems Diagnosis/Problems (1) AV block Status: Acute (2) CAD (coronary artery disease) Status: Acute Qualifiers: Coronary Disease-Associated Artery/Lesion type: [place] artery [place] vs. transplanted heart: augustine heart Associated angina: angina presence unspecified Qualified Codes: I25.10 - Atherosclerotic heart disease of [place] coronary artery without angina pectoris (3) HLD (hyperlipidemia) Status: Chronic (4) Tobacco abuse Status: Chronic Clinical Quality Measures AMI/AHF: ASA po Prior to arrival: No DVT/VTE Risk/Contraindication: Risk Factor Score Per Nursin RFS Level Per Nursing on Admit: 2=Moderate NASIM GAUTHIER MD April 13, 2020 13:27
[2020-04-13] MEDS ORDERED: MIDAZOLAM 5 MG/5 ML (VERSED) VIAL ONE ×2 (13:40→14:48)
[2020-04-13] MEDS ORDERED: fentaNYL INJECTION 100 MCG/2 ML AMP ONE ×2 (13:40→14:48)
[2020-04-13] MEDS ORDERED: NS IV 1000 ML 1,000 ML ONE (14:19)
--- NOTE | 2020-04-13 16:18 | Progress Note - Cardiology ---
Cardiology SOAP Progress Note Subjective: No cp or palp or syncope or shortness of breath No focal weakness No n/v/d Objective: I&O/Vital Signs 04/13/20 04/13/20 04/13/20 04/13/20 05:32 07:00 08:00 08:00 Temp 37.0 36.6 Pulse 39 42 41 Resp 18 16 B/P (MAP) 141/75 (97) Pulse Ox 90 92 O2 Delivery Room Air Room Air 04/13/20 04/13/20 04/13/20 04/13/20 08:00 09:00 12:00 12:00 Temp 36.5 Pulse 65 Resp 18 B/P (MAP) 171/81 (111) Pulse Ox 98 92 O2 Delivery Room Air Room Air Room Air Room Air 04/13/20 13:00 Pulse 48 04/13/20 00:00 Intake Total 550 ml Output Total 650 ml Balance -100 ml Weight (Pounds): 156 Weight (Calculated Kilograms): 70.653019 Constitutional: AAO x 3, well-developed, well-nourished Respiratory: No accessory muscle use; other (good bilat air entry) Cardiovascular: regular rate-rhythm, S1 and S2, systolic murmur (soft JOHN at card base) Gastrointestional: No tender; soft; No guarding, No rebound; audible bowel sounds Extremities: No clubbing, No cyanosis, No significant edema Neurologic/Psychiatric: alert, oriented x 3, other (moves all limbs equally) Skin: No rash on exposed areas, No ulcerations on exposed areas Results/Procedures: Labs Microbiology 04/12/20 MRSA Screen - Final, Complete MRSA not isolated A/P: Assessment: Chest discomfort, likely non-cardiac (based on card cath of 04/12/20) CAD. Promus 3 x 12 was placed to mid LCX at [facility] by Dr Quintanilla in April 2016. Last card cath on 04/12/20: mild CAD, patent stent in the mid left circumflexild elevation of left ventricular end-diastolic pressure, normal global left ventricular systolic function Echo on 04/12/20: LVEF 60-65%, normal RVSP 2:1 AV block and RBBB on ECG and brief episodes of complete heart block, treated with permanent dual chamber pacemaker (Medtronic) on 5/15/20 Plan: * We reviewed and discussed his CV issues * Advised immediate and complete smoking cessation * Keep overnight after today's permanent pacemaker * Probable d/c tomorrow * F/u at our next week for wound check Clinical Quality Measures AMI/AHF: ASA po Prior to arrival: MARCUS Alas MD FACP FAC CCDS April 13, 2020 16:18
[2020-04-13] MEDS ORDERED: NS IV 1000 ML 1,000 ML IV SCH (16:29)
[2020-04-13] MEDS ORDERED: PATIENT MAY USE OWN MEDS, ALL PO SCH (16:30)
[2020-04-13] MEDS ORDERED: ACETAMINOPHEN 325 MG TABLET PO PRN (16:45)
[2020-04-13] MEDS ORDERED: IBUPROFEN 600 MG (MOTRIN) TAB PO PRN (16:45)
--- NOTE | 2020-04-13 16:47 | Discharge Inst-Post Device ---
Discharge Inst-Post Device Follow up/Plan F/u at Dr Rose's office on 04/16/20 Heart Healthy Diet Do not lift arm on side of device placement above head for 4 weeks. Do not push and pull heavy objects for 4 weeks. Activity as tolerated. No driving for one week. Leave dressing on until follow up at the office. MARCUS ROSE MD FACP FAC CCDS April 13, 2020 16:47
[2020-04-13] MEDS ORDERED: SULF1TAB35 PO (16:49)
--- NOTE | 2020-04-13 16:53 | Diagnostic Imaging Report ---
EXAMINATION: PA and lateral chest at 04:41 p.m. INDICATION: Pacemaker insertion. FINDINGS: The heart size is within normal limits and stable when compared to 04/12/2020. In the interval since the prior exam, a left-sided pacemaker has been inserted. The pacer leads seem to be in good position. There is no sign of a pneumothorax on the left. The lungs remain generally clear. There are still a few crowded bronchovascular markings in the right infrahilar region, but there is no evidence for pneumonia or pleural effusion. There is a small nodular density overlying the periphery of the right lung base. This may well be due to the right nipple shadow as the CT chest exam of 03/16/2020 failed to show any sign of a parenchymal nodule in this region. The mediastinum is not widened. The osseous structures are intact. IMPRESSION: 1. There has been interval insertion of a left-sided pacemaker without apparent complication. 2. There is no acute cardiopulmonary abnormality noted otherwise. Dictated by: Dictated on workstation # [id number]
--- NOTE | 2020-04-13 23:03 | OPERATIVE REPORT ---
DATE OF SERVICE: 04/13/2020 PREOPERATIVE DIAGNOSIS: A 2:1 AV block with right bundle branch block and intermittent complete heart block. POSTOPERATIVE DIAGNOSIS: A 2:1 AV block with right bundle branch block and intermittent complete heart block. PROCEDURE: Dual chamber pacemaker implantation. INDICATIONS: The patient is a 54-year-old man, who has 2:1 AV block and intermittent complete heart block in the absence of any medications that might induce bradycardia. This has been persistent. He has had symptoms of poor stamina. Dual chamber pacemaker implantation was advised and carried out today after having obtained informed consent. DESCRIPTION OF PROCEDURE: He was brought to the cardiac catheterization laboratory. The left prepectoral area was prepared and draped in the usual sterile fashion. We used ultrasound guidance to gain access into the left axillary vein. Two guidewires were advanced, and the tips were placed in the right atrium. Sharp and blunt dissection was used to make a pacemaker pocket. The pocket was packed with gauze soaked in antibiotic solution. The wires were used to advance sheaths and the wires were removed. The sheaths were used to advance leads and the sheaths were removed. All lead manipulation was carried out under fluoroscopy. The right ventricular lead was placed at the right ventricular apex and actively fixed. The right atrial lead was placed at the right atrial appendage and actively fixed. Right ventricular capture threshold was 0.5 volts at 0.4 milliseconds and the pacing impedance was 990 ohms. R-wave was measured at 6 millivolts. The right atrial capture threshold was 0.5 volts at 0.4 milliseconds and the pacing impedance was 714 ohms. P-wave amplitude was measured at 7.9 millivolts. The atrial lead is a Medtronic model 015843 with serial [id number]. The right ventricular lead is Medtronic model 005817 with serial [id number]. Both leads were tested at 10 volts and there was no diaphragmatic stimulation. The leads were sutured to the prepectoral fascia using sleeves and 0 Ethibond. The antibiotic gauze was removed from the pacemaker pocket and the pocket was thoroughly irrigated with antibiotic solution. Good hemostasis was assured. The pacemaker and the leads were placed in the pocket and the pocket was closed in 2 layers using 3.0 Vicryl. The patient tolerated the procedure well. Job ID: [id number] DocumentID: [id number] Dictated Date: 04/13/2020 16:26:09 Clinical Laboratory Aides Teacher Date: 04/13/2020 23:03:09 Dictated By: MARCUS ZHU MD, MA, FACP, FACC,
[2020-04-14] VITALS: BP 139/90
[2020-04-14] MEDS: NS IV 1000 ML 1,000 ML IV SCH (01:05)
[2020-04-14 04:00] VITALS: BP 137/85
[2020-04-14] MEDS: CATHETER FLUSH 10 ML SYR IV SCH (06:27)
[2020-04-14] MEDS ORDERED: VANCOMYCIN INJECTION 1,000 MG in NS (IVPB) 250 ML IV NR (07:00)
[2020-04-14 07:33] VITALS: BP 140/84
[2020-04-14] MEDS: NICOTINE PATCH REMOVAL TP SCH (07:39)
[2020-04-14] MEDS: NICOTINE 21 MG (NICODERM) PATCH TD SCH (07:39)
[2020-04-14] MEDS: ASPIRIN 81 MG CHEW (CHILDREN'S ASA) PO SCH (07:39)
--- NOTE | 2020-04-14 10:03 | Discharge Summary ---
Discharge Summary Hospital Course Was the Problem List Reviewed?: Yes Problems/Dx: (1) AV block Status: Acute (2) CAD (coronary artery disease) Status: Acute Qualifiers: Qualified Codes: I25.10 - Atherosclerotic heart disease of [place] coronary artery without angina pectoris (3) HLD (hyperlipidemia) Status: Chronic (4) Tobacco abuse Status: Chronic Hospital Course Date of Admission: April 11, 2020 at 14:48 Admission Diagnosis : Atrioventricular block, chest pain Family Physician/Provider: Jerrod Truong MD Date of Discharge: 04/14/20 Discharge Diagnosis: Atrioventricular block status post pacemaker placement, coronary artery disease Hospital Course: Elder Meza is a 54-year-old male with past medical history of hyperlipidemia and tobacco abuse who presented with chest pain. Cardiology was consulted and assisted with his care. He underwent a left heart catheterization with revealed mild coronary artery disease and no intervention was required. His chest pain resolved. He was also found to have an atrioventricular block and underwent pacemaker placement. He tolerated the procedures well and was discharged in stable condition. He should follow-up with cardiology as scheduled. He should follow-up with his primary care physician in about a week. Labs and Pending Lab Test: Microbiology 04/12/20 MRSA Screen - Final, Complete MRSA not isolated Home Meds Active Bactrim Ds Tablet (Sulfamethoxazole/Trimethoprim) 1 Each Tablet 1 Each PO BID 5 Days Reported Cyclobenzaprine HCl 10 Mg Tablet 10 Mg PO TID PRN Ibuprofen 800 Mg Tablet 800 Mg PO DAILY PRN Aspir 81 (Aspirin) 81 Mg Tablet.dr 81 Mg PO DAILY Atorvastatin Calcium 80 Mg Tablet 80 Mg PO DAILY Assessment/Pt Instructions Take medications as prescribed. Follow up with cardiology as scheduled. Discharge Planning: <30 minutes discharge planning Discharge Instructions Discharge Diet: Low Sodium Diet Activity as Tolerated: Yes Pneumonia Vaccine Order Indica: Yes Discharge Physical Examination Vital Signs Vital Signs Date Time Temp Pulse Resp B/P (MAP) Pulse Ox O2 Delivery O2 Flow Rate FiO2 04/14/20 09:00 98 Room Air 04/14/20 07:33 36.6 92 12 140/84 (102) 04/13/20 04:00 2.00 General Appearance: No Apparent Distress, WD/WN HEENT: PERRL/EOMI, Pharynx Normal Respiratory: Lungs Clear, Normal Breath Sounds, No Respiratory Distress Cardiovascular: Regular Rate, Rhythm, No Edema, No Murmur, Other (Pacemaker in place left chest wall) Gastrointestinal: Normal Bowel Sounds, Non Tender, Soft Extremity: Normal Inspection, Non Tender, No Pedal Edema Skin: Normal Color, Warm/Dry Neurologic/Psychiatric: Alert, Oriented x3, No Motor/Sensory Deficits, Normal Mood/Affect Allergies: Coded Allergies: Penicillins (Verified Allergy, Intermediate, Hives, 04/11/20) Copy Copies To 1: JERROD TRUONG MD Discharge Summary Date of Admission April 11, 2020 at 14:48 Date of Discharge Discharge Date: April 14, 2020 Discharge Time: 10:00 Admission Diagnosis Heart block Consults/Procedures Consulations cardiology Procedures Left heart catheterization, pacemaker placement Discharge Diagnosis Atrioventricular block (1) AV block Status: Acute (2) CAD (coronary artery disease) Status: Acute Qualifiers: Qualified Codes: I25.10 - Atherosclerotic heart disease of [place] coronary artery without angina pectoris (3) HLD (hyperlipidemia) Status: Chronic (4) Tobacco abuse Status: Chronic Clinical Quality Measures AMI/AHF: ASA po Prior to arrival: No DVT/VTE Risk/Contraindication: Risk Factor Score Per Nursin RFS Level Per Nursing on Admit: 2=Moderate NASIM GAUTHIER MD April 14, 2020 10:03
--- NOTE | 2020-04-14 10:07 | Cardiology Progress Note ---
Subjective Date Seen by Provider: April 14, 2020 Time Seen by Provider: 10:06 Subjective/Events-last exam Patient is sitting in bed, ready to go home, site is healing well Review of Systems General: No Chills, No Night Sweats, No Fatigue, No Malaise, No Appetite, No Other HEENT: No Head Aches, No Visual Changes, No Eye Pain, No Ear Pain, No Dysphasia, No Sinus Congestion, No Post Nasal Drip, No Sore Throat, No Other Pulmonary: No Dyspnea, No Cough, No Pleuritic Chest Pain, No Other Cardiovascular: No: Chest Pain, Palpitations, Orthopnea, Paroxysmal Noc. Dyspnea, Edema, Lt Headedness, Other Objective-Cardiology Exam Last Set of Vital Signs Vital Signs 04/13/20 04/14/20 04/14/20 04:00 07:33 09:00 Temp 36.6 Pulse 92 Resp 12 B/P (MAP) 140/84 (102) Pulse Ox 98 O2 Delivery Room Air O2 Flow Rate 2.00 Capillary Refill : Less Than 3 Seconds I&O Intake and Output 04/14/20 00:00 Intake Total 2040 ml Output Total 1100 ml Balance 940 ml Intake Oral 540 ml IV Total 1500 ml Output Urine Total 1100 ml General: Alert, Oriented X3, Cooperative HEENT: Atraumatic, PERRLA Neck: Supple, No JVD, No Thyromegaly Lungs: Clear to Auscultation, Normal Air Movement Heart: Regular Rate, Normal S1, Normal S2, No Murmurs Abdomen: Normal Bowel Sounds, Soft, No Tenderness, No Hepatosplenomegaly, No Masses Extremities: No Clubbing, No Cyanosis, No Edema, Normal Pulses, No Tenderness/Swelling Skin: No Rashes, No Breakdown, No Significant Lesion Neuro: Normal Gait, Normal Speech, Strength at 5/5 X4 Ext, Normal Tone, Sensation Intact Psych/Mental Status: Mental Status NL, Mood NL A/P-Cardiology Admission Diagnosis Third degree AV block Cardiac pacemaker Hypertension Coronary artery disease Assessment/Plan High-grade AV block, status post dual-chamber pacemaker implantation done by Dr. Rose, site is healing well, ready for discharge Hypertension, controlled, monitor blood pressure Coronary artery disease, clinically stable Clinical Quality Measures AMI/AHF: ASA po Prior to arrival: No DVT/VTE Risk/Contraindication: Risk Factor Score Per Nursin RFS Level Per Nursing on Admit: 2=Moderate RAKESH FIELDS MD April 14, 2020 10:07
[2020-04-14 10:32] VITALS: BP 140/84
== END 2020-04-14 10:32 | disposition home or self-care (01) | DRG 244 ==
LOC: EDUNIT# 13:00 → ER FS 13:01 → ICU 14:48
PROVIDERS: ADMIT Internal Medicine; ATTEND Internal Medicine
PROC: B5171ZA Fluoroscopy of Left Subclavian Vein using Low Osmolar Contrast, Guidance (ICD-10-PCS; 2020-04-11)
PROC: 4A023N7 Measurement of Cardiac Sampling and Pressure, Left Heart, Percutaneous Approach (ICD-10-PCS; 2020-04-12)
PROC: B2111ZZ Fluoroscopy of Multiple Coronary Arteries using Low Osmolar Contrast (ICD-10-PCS; 2020-04-12)
PROC: B2151ZZ Fluoroscopy of Left Heart using Low Osmolar Contrast (ICD-10-PCS; 2020-04-12)
PROC: 0JH606Z Insertion of Pacemaker, Dual Chamber into Chest Subcutaneous Tissue and Fascia, Open Approach (ICD-10-PCS; principal; 2020-04-13)
PROC: 02HK3JZ Insertion of Pacemaker Lead into Right Ventricle, Percutaneous Approach (ICD-10-PCS; 2020-04-13)
PROC: 02H63JZ Insertion of Pacemaker Lead into Right Atrium, Percutaneous Approach (ICD-10-PCS; 2020-04-13)
DX: I44.2 Atrioventricular block, complete (principal); I44.1 Atrioventricular block, second degree; I45.10 Unspecified right bundle-branch block; R07.89 Other chest pain; I25.10 Atherosclerotic heart disease of native coronary artery without angina pectoris; F17.210 Nicotine dependence, cigarettes, uncomplicated; E78.5 Hyperlipidemia, unspecified; Z88.0 Allergy status to penicillin; Z95.5 Presence of coronary angioplasty implant and graft; Z79.82 Long term (current) use of aspirin
CPT/HCPCS: 33207; 33210; 36415; 71045; 71046; 80053; 80061; 83690; 83735; 84484; 85025; 85610; 85730; 87081; 93005; 93041; 93306; 93458; 93880

== ENCOUNTER → 2020-05-21 | Outpatient (CLI) | payer OTHER ==
[~2020-05-21] MED LIST changes: +ASPI-586 PO; +ATOR80TA76 PO; +IBUP-1780 PO; +SULF1TAB35 PO
[2020-05-21 16:10] LABS: ALANINE AMINOTRANSFERASE 16 U/L (0-55); ALBUMIN 4.3 GM/DL (3.2-4.5); ALKALINE PHOSPHATASE 110 U/L (40-136); BILIRUBIN,TOTAL 0.5 MG/DL (0.1-1.0); BUN/CREATININE RATIO 17; CALCIUM 9.5 MG/DL (8.5-10.1); CARBON DIOXIDE 24 MMOL/L (21-32); CHLORIDE 108 MMOL/L (98-107); CHOLESTEROL 118 MG/DL (< 200); CREATININE SERUM 0.84 MG/DL (0.60-1.30); GFR ESTIMATED > 60; GLUCOSE 103 MG/DL (70-105); HDL CHOLESTEROL 35 MG/DL (40-60); MAGNESIUM 2.6 MG/DL (1.6-2.4); POTASSIUM 3.8 MMOL/L (3.6-5.0); SODIUM 141 MMOL/L (135-145); TRIGLYCERIDES 140 MG/DL (<150); VLDL CHOLESTEROL 28 MG/DL (5-40)
== END ==
LOC: LAB 15:19
PROVIDERS: ATTEND Internal Medicine Cardiovascular Disease
DX: E78.5 Hyperlipidemia, unspecified (principal); I25.10 Atherosclerotic heart disease of native coronary artery without angina pectoris; I10 Essential (primary) hypertension; J43.9 Emphysema, unspecified; Z72.0 Tobacco use
CPT/HCPCS: 36415; 80053; 80061; 83735

== ENCOUNTER 2020-05-27 15:12 | Emergency (ER) | payer OTHER ==
--- NOTE | 2020-05-27 15:14 | ED General ---
General Stated Complaint: LOSING HIS VOICE Source of Information: Patient History of Present Illness Date Seen by Provider: May 27, 2020 Time Seen by Provider: 15:14 Initial Comments Patient is a 54 y/o male who comes to the ER today c/o loss of voice. He has noticed some raspy voice over the last 48 hours. Today, his sx worsened so he decided to come to the ER. He does have mild cough symptoms which are chronic and are not worse today. No fever, chills, myalgias, or shortness of breath. No neck pain, dental pain. Denies sore throat or difficulty swallowing. Patient is a heavy tobacco user. He has had some ill contact at home stating that his girlfriend was evaluated in this ER last night and her COVID testing is pending. Allergies and Home Medications Allergies Coded Allergies: Penicillins (Verified Allergy, Intermediate, Hives, 04/11/20) Home Medications Aspirin 81 Mg Tablet.dr, 81 MG PO DAILY, (Reported) Atorvastatin Calcium 80 Mg Tablet, 80 MG PO DAILY, (Reported) Cyclobenzaprine HCl 10 Mg Tablet, 10 MG PO TID PRN for MUSCLE CRAMPS, (Reported) Ibuprofen 800 Mg Tablet, 800 MG PO DAILY PRN for PAIN-MILD (1-4), (Reported) Prednisone 20 Mg Tab, 40 MG PO DAILY Prescribed by: ALMA KEANE on 05/27/20 1524 Sulfamethoxazole/Trimethoprim 1 Each Tablet, 1 EACH PO BID Prescribed by: MARCUS ZHU on 04/13/20 1649 Patient Home Medication List Home Medication List Reviewed: Yes Review of Systems Review of Systems Constitutional: no symptoms reported EENTM: see HPI Respiratory: no symptoms reported Cardiovascular: no symptoms reported Genitourinary: no symptoms reported Musculoskeletal: no symptoms reported Skin: no symptoms reported All Other Systems Reviewed Negative Unless Noted: Yes Physical Exam Vital Signs Capillary Refill : Height, Weight, BMI Height: '" Weight: lbs. oz. kg; BMI Method: General Appearance: No Apparent Distress, WD/WN HEENT: Other (Posterior oral pharynx is mildly erythematous. No abscess. No uvular edema, Patent airway, floor of mouth soft) Respiratory: Lungs Clear, Normal Breath Sounds Cardiovascular: Regular Rate, Rhythm, No Edema Extremity: Normal Capillary Refill Neurologic/Psychiatric: Alert, Oriented x3 Skin: Normal Color Progress/Results/Core Measures Suspected Sepsis SIRS Temperature: Pulse: Respiratory Rate: Blood Pressure / Mean: Results/Orders My Orders Orders - ALMA KEANE DO Prednisone Tablet (Deltasone Tablet) (05/27/20 15:30) Coronavirus Sars-Cov-2 So 2019 (05/27/20 15:27) Vital Signs/I&O Capillary Refill : Progress Note : Time: 15:40 Progress Note Patient is evaluated in the ER primarily for COVID testing. He only complains of mild loss of voice but no other constitutional or respiratory symptoms. Physical exam is negative for acute findings. Covid test collected. Patient is heavy tobacco user and breath sounds are mildly diminished bilaterally but still with air mvt and no adventitious lung sounds. He is placed on prednisone today. He does not have dyspnea or hx of inhaler use. Recommended to quarantine for two weeks or until his COVID test is returned as negative. Departure Impression Primary Impression: Viral laryngitis Disposition: 01 HOME, SELF-CARE Condition: Stable Departure-Patient Inst. Scripts Prednisone (Prednisone) 20 Mg Tab 40 MG PO DAILY, #5 TAB 0 Refills Prov: ALMA KEANE DO 05/27/20 ALMA KEANE DO May 27, 2020 15:14
[2020-05-27] MEDS ORDERED: PRD20T PO (15:24)
[2020-05-27] MEDS ORDERED: predniSONE 20 MG TAB PO ONE (15:30)
[2020-05-27 15:38] VITALS: BP 118/80
== END 2020-05-27 15:47 | disposition home or self-care (01) ==
LOC: EDUNIT# 15:12 → ER FS 15:14
DX: J04.0 Acute laryngitis (principal); B97.89 Other viral agents as the cause of diseases classified elsewhere; F17.200 Nicotine dependence, unspecified, uncomplicated; Z20.828 Contact with and (suspected) exposure to other viral communicable diseases
CPT/HCPCS: 99283; U0002; 87635

== ENCOUNTER 2020-06-09 11:44 | Emergency (ER) | payer OTHER ==
[~2020-06-09] VITALS: Ht 180.3 cm; Wt 71.4 kg
--- OUTSIDE RECORDS SUMMARY | 2020-06-09 11:50 | XMS REPORT | Continuity of Care Document ---
Author Organization Unknown Address Unknown Phone Unavailable Allergies There is no data. Medications There is no data. Problems There is no data. Procedures There is no data. Results There is no data. Encounters ACCT No. Visit Date/Time Discharge Status Pt. Type Provider Facility Loc./Unit Complaint [id number] 02/27/2020 12:50:00 02/27/2020 23:59: 59 [facility]
--- NOTE | 2020-06-09 12:32 | Diagnostic Imaging Report ---
Indication: Loss of voice, dyspnea for 2 weeks. Comparison: 04/13/2020. Discussion: Two views of the chest were obtained. The lungs remain hyperinflated. Normal heart size. Left-sided pacemaker stable. No new consolidation, pleural fluid, or pneumothorax. No osseous abnormality. Impression: 1. Stable changes of COPD. Dictated by: Dictated on workstation # [id number]
--- NOTE | 2020-06-09 12:44 | ED EENT ---
History of Present Illness General Chief Complaint: Oral/Throat Problems Stated Complaint: LOST HIS VOICE Nursing Triage Note: Patient reports he was seen in this ED two weeks ago for the same complaint of losing his voice, patient was tested for COVID-19 at that time and received a negative result. He states he completed the course of medication prescribed to him at that time but still has not regained his voice. History of Present Illness Date Seen by Provider: Jun 09, 2020 Time Seen by Provider: 11:51 Initial Comments The patient is a 54-year-old male with a history of hypertension, coronary artery disease status post [place] with stenting in March of 2020, status post dual lead pacemaker implantation for third degree AV block, COPD. He continues to smoke. He presents for evaluation of a hoarse voice with onset about 2 weeks ago. Associated mild worsening of his chronic nonproductive cough. No other symptoms of any concern and in particular the patient denies fevers, nausea or vomiting, headache, focal weakness, numbness, tingling, neck stiffness/pain/meningismus, vision changes, sore throat, difficulty breathing or swallowing, neck pain of any kind, shortness of breath or chest pain of any kind in the recent past. Patient states aside from the hoarse voice he feels well. Mr. Meza was seen in this emergency department a couple of weeks ago for the symptoms. At that time, he was prescribed a course of prednisone which he took to completion but states it did not help. Allergies and Home Medications Allergies Coded Allergies: Penicillins (Verified Allergy, Intermediate, Hives, 04/11/20) Home Medications Aspirin 81 Mg Tablet.dr, 81 MG PO DAILY, (Reported) Atorvastatin Calcium 80 Mg Tablet, 80 MG PO DAILY, (Reported) Cyclobenzaprine HCl 10 Mg Tablet, 10 MG PO TID PRN for MUSCLE CRAMPS, (Reported) Ibuprofen 800 Mg Tablet, 800 MG PO DAILY PRN for PAIN-MILD (1-4), (Reported) Prednisone 20 Mg Tab, 40 MG PO DAILY Prescribed by: ALMA KEANE on 05/27/20 1524 Sulfamethoxazole/Trimethoprim 1 Each Tablet, 1 EACH PO BID Prescribed by: MARCUS ZHU on 04/13/20 1469 Patient Home Medication List Home Medication List Reviewed: Yes Review of Systems Review of Systems Constitutional: see HPI All Other Systems Reviewed Negative Unless Noted: Yes (Negative excepted noted.) Past Bozyrgv-Bmpaem-Znuyyq Hx Past Med/Social Hx: Reviewed Nursing Past Med/Soc Hx Patient Social History Alcohol Use: Denies Use Recreational Drug Use: No Smoking Status: Current Everyday Smoker Type Used: Cigarettes 2nd Hand Smoke Exposure: Yes Recent Foreign Travel: No Contact w/Someone Who Travel: No Recent Infectious Disease Expo: No Recent Hopitalizations: No Physical Abuse: No Sexual Abuse: No Mistreated: No Fear: No Seasonal Allergies Seasonal Allergies: No Past Medical History Surgeries: Yes (cardiac stent placement) Respiratory: No Cardiac: Yes (stent placement ) High Cholesterol Neurological: No Genitourinary: No Gastrointestinal: No Musculoskeletal: Yes (back injury in high school) Endocrine: No HEENT: No Cancer: No Psychosocial: No Integumentary: No Family Medical History Reviewed Nursing Family Hx Physical Exam Vital Signs Vital Signs - First Documented 06/09/20 11:53 Temp 36.8 Pulse 109 Resp 18 B/P (MAP) 101/73 (82) Pulse Ox 95 O2 Delivery Room Air Height, Weight, BMI Height: 5'11.00" Weight: 156lbs. oz. 70.315884ja; 21.00 BMI Method:Stated General Appearance: no apparent distress This is an older male appearing nontoxic and in no acute distress. Head is normocephalic and atraumatic. Neck is supple and nontender. No JVD. Oropharynx is moist. Posterior oropharynx is without tonsillar exudates or swelling or uvular deviation and the patient is tolerating secretions well and speaking comfortably in full sentences. His voice is hoarse. No oropharyngeal or posterior pharyngeal abnormalities are identified on exam. Lungs are clear to auscultation at all stations without adventitious sounds appreciated. Good air movement bilaterally. There is a normal S1 and S2 without rubs or gallops and capillary refill is appropriate, less than 2 seconds globally. Abdomen is soft, nontender and nondistended. Skin is warm and dry without cyanosis, clubbing or edema. Psychiatrically, the patient demonstrates appropriate mood and affect and is alert. Bilateral upper and lower extremities are neurovascularly intact distally with strength 5 out of 5, sensation intact to light touch in all nerve distributions, peripheral pulses 2+, capillary refill less than 2 seconds, hands and feet warm and well-perfused. Progress/Results/Core Measures Results/Orders My Orders Orders - OMAR BARR MD Chest Pa/Lat (2 View) (06/09/20 12:19) Ekg Tracing (06/09/20 12:36) Vital Signs/I&O 06/09/20 11:53 Temp 36.8 Pulse 109 Resp 18 B/P (MAP) 101/73 (82) Pulse Ox 95 O2 Delivery Room Air Blood Pressure Mean: 82 Progress Progress Note : Time: 12:45 Progress Note Well-appearing 54-year-old male with a cardiac history who presents for evaluation of 2 weeks of hoarse voice. Most likely a viral laryngitis. As Mr. Meza is a cardiac patient with recent pacemaker placement and recent stenting, I did discuss the situation with Dr. Kamara of cardiology at [facility]. He states that from his standpoint, that if Mr. Meza has no chest pain or shortness of breath and if his electrocardiogram and chest x-ray are without evidence of acute process, that no further workup is needed at this time the patient is safe to follow up closely with primary care. Chest x-ray and EKG obtained and are unremarkable. We will proceed with discharge home. Patient is advised to follow-up with his primary care physician in the office in the next 1-2 days. We will also refer him for close follow-up with Dr. Gallego of ENT given protracted symptoms. He understands that if he feels worse is that of better or develops any other new symptoms of concern that he will need to return to the emergency department right away for reevaluation. All questions are answered. EKG : Comment Right bundle branch block, rate 96, no acute ST elevation or depression, MN 132, QRS 128, QTC 476, EP interpretation. Diagnostic Imaging Comments Indication: Loss of voice, dyspnea for 2 weeks. Comparison: 04/13/2020. Discussion: Two views of the chest were obtained. The lungs remain hyperinflated. Normal heart size. Left-sided pacemaker stable. No new consolidation, pleural fluid, or pneumothorax. No osseous abnormality. Impression: 1. Stable changes of COPD. Dictated on workstation # [id number] Departure Impression Primary Impression: Hoarseness of voice Disposition: HOME, SELF-CARE Condition: Stable Departure-Patient Inst. Referrals: AMAYA GALLEGO MD, JOHN M MD (PCP/Family) Primary Care Physician Patient Instructions: Laryngitis Add. Discharge Instructions: Please follow up very closely with Dr. Truong in the office in the next 1-2 days for a reevaluation of your symptoms and a discussion of next steps in care. I would also like you to contact Dr. Gallego's office on Thursday using the telephone number provided to make a close follow-up appointment to be seen. Ideally I would like you to be seen by Dr. Gallego within the next 1 week. Return to the emergency department right away with any shortness of breath or chest pain or for any other new or worsening symptoms. OMAR BARR MD Jun 09, 2020 12:44
[2020-06-09 12:58] VITALS: BP 103/65
== END 2020-06-09 13:00 | disposition home or self-care (01) ==
LOC: EDUNIT# 11:44 → ER FS 11:45
DX: R49.0 Dysphonia (principal); I25.2 Old myocardial infarction; I10 Essential (primary) hypertension; E78.00 Pure hypercholesterolemia, unspecified; J44.9 Chronic obstructive pulmonary disease, unspecified; I25.10 Atherosclerotic heart disease of native coronary artery without angina pectoris; F17.210 Nicotine dependence, cigarettes, uncomplicated; Z95.5 Presence of coronary angioplasty implant and graft; Z95.0 Presence of cardiac pacemaker; Z88.0 Allergy status to penicillin; Z79.82 Long term (current) use of aspirin
CPT/HCPCS: 71046; 93005

== ENCOUNTER 2020-06-10 16:39 | Emergency (ER) | payer OTHER ==
[~2020-06-10] VITALS: Ht 180.3 cm; Wt 72.7 kg
--- NOTE | 2020-06-10 17:31 | ED General ---
General Stated Complaint: SAYS HE HAS BEEN EXPOSED TO COVID 19 History of Present Illness Date Seen by Provider: Jun 10, 2020 Time Seen by Provider: 17:26 Initial Comments Pt presents with COVID exposure. The of a friend of his tested positive 2 days ago. He was around this friend earlier in the week. He has had a hoarse voice for about 2-3, he was previously tested for COVID 2 weeks ago and was negative. He has a smokers cough which is not worse than usual. Allergies and Home Medications Allergies Coded Allergies: Penicillins (Verified Allergy, Intermediate, Hives, 04/11/20) Home Medications Aspirin 81 Mg Tablet.dr, 81 MG PO DAILY, (Reported) Atorvastatin Calcium 80 Mg Tablet, 80 MG PO DAILY, (Reported) Cyclobenzaprine HCl 10 Mg Tablet, 10 MG PO TID PRN for MUSCLE CRAMPS, (Reported) Ibuprofen 800 Mg Tablet, 800 MG PO DAILY PRN for PAIN-MILD (1-4), (Reported) Prednisone 20 Mg Tab, 40 MG PO DAILY Prescribed by: ALMA KEANE on 05/27/20 1524 Sulfamethoxazole/Trimethoprim 1 Each Tablet, 1 EACH PO BID Prescribed by: MARCUS ZHU on 04/13/20 1649 Patient Home Medication List Home Medication List Reviewed: Yes Review of Systems Review of Systems Constitutional: No chills, No fever EENTM: hoarseness Respiratory: cough; No short of breath, No wheezing Cardiovascular: no symptoms reported Gastrointestinal: no symptoms reported Skin: no symptoms reported Psychiatric/Neurological: No Symptoms Reported Past Khsphfn-Mlutem-Jpdyyt Hx Patient Social History Type Used: Cigarettes 2nd Hand Smoke Exposure: Yes Recent Hopitalizations: No Seasonal Allergies Seasonal Allergies: No Past Medical History Surgeries: Yes (cardiac stent placement) Respiratory: No Cardiac: Yes (stent placement ) High Cholesterol Neurological: No Genitourinary: No Gastrointestinal: No Musculoskeletal: Yes (back injury in high school) Endocrine: No HEENT: No Cancer: No Psychosocial: No Integumentary: No Physical Exam Vital Signs Capillary Refill : Height, Weight, BMI Height: 5'11.00" Weight: 156lbs. oz. 70.357155vw; 21.00 BMI Method:Stated General Appearance: No Apparent Distress, WD/WN HEENT: Moist Mucous Membranes Neck: Supple Respiratory: No Respiratory Distress Extremity: Normal Inspection Neurologic/Psychiatric: Alert, Oriented x3 Progress/Results/Core Measures Suspected Sepsis SIRS Temperature: Pulse: Respiratory Rate: Blood Pressure / Mean: Results/Orders My Orders Orders - ISA IYER MD Coronavirus Sars-Cov-2 So 2018 (06/10/20 17:02) Vital Signs/I&O Capillary Refill : Departure Impression Primary Impression: SARS-associated coronavirus exposure Disposition: HOME, SELF-CARE Condition: Stable Departure-Patient Inst. Referrals: JERROD ARMAS MD (PCP/Family) Primary Care Physician Patient Instructions: Coronavirus Disease 2019 (COVID-19) Tests Work/School Note: Family Work Note Patient Restrictions: May not return to work until results of COVID test ISA IYER MD Jun 10, 2020 17:31
[2020-06-10 17:45] VITALS: BP 121/72
== END 2020-06-10 17:45 | disposition home or self-care (01) ==
LOC: EDUNIT# 16:39 → ER FS 16:40
DX: Z20.828 Contact with and (suspected) exposure to other viral communicable diseases (principal); E78.00 Pure hypercholesterolemia, unspecified; Z88.0 Allergy status to penicillin; Z79.82 Long term (current) use of aspirin; Z77.22 Contact with and (suspected) exposure to environmental tobacco smoke (acute) (chronic); Z95.5 Presence of coronary angioplasty implant and graft
CPT/HCPCS: 99282; U0002; 87635

== ENCOUNTER 2020-08-27 20:06 | Emergency (ER) | payer OTHER ==
[2020-08-27] MEDS ORDERED: HYDROcodone/APAP 5 MG/325 MG (LORTAB) TAB ONE (20:23)
[2020-08-27] MEDS ORDERED: DICL75TA2 PO (20:23)
--- NOTE | 2020-08-27 20:24 | ED General ---
General Stated Complaint: KNOT ON RIGHT SIDE OF HIP Source of Information: Patient, RN/MD, RN Notes Reviewed History of Present Illness Date Seen by Provider: Aug 27, 2020 Time Seen by Provider: 20:10 Initial Comments This patient is a 54-year-old male presents to the emerge department complaining of a knot in his right groin area. Patient states he was helping move a refrigerator last night medication from falling over this morning woke up and had a bulge in his right groin area. On exam easily reducible appears to be a direct hernia the right inguinal area. No significant pain. No signs of strangulation. Patient is passing gas normal bowel movements. Timing/Duration: 24 Hours Allergies and Home Medications Allergies Coded Allergies: Penicillins (Verified Allergy, Intermediate, Hives, 04/11/20) Home Medications Aspirin 81 Mg Tablet.dr, 81 MG PO DAILY, (Reported) Atorvastatin Calcium 80 Mg Tablet, 80 MG PO DAILY, (Reported) Cyclobenzaprine HCl 10 Mg Tablet, 10 MG PO TID PRN for MUSCLE CRAMPS, (Reported) Ibuprofen 800 Mg Tablet, 800 MG PO DAILY PRN for PAIN-MILD (1-4), (Reported) Prednisone 20 Mg Tab, 40 MG PO DAILY Prescribed by: ALMA KEANE on 05/27/20 1524 Sulfamethoxazole/Trimethoprim 1 Each Tablet, 1 EACH PO BID Prescribed by: MARCUS ZHU on 04/13/20 1649 Patient Home Medication List Home Medication List Reviewed: Yes Review of Systems Review of Systems Constitutional: No no symptoms reported, No see HPI, No chills, No diaphoresis, No dizziness, No fever, No malaise, No weakness, No weight gain, No weight loss, No other EENTM: No see HPI, No no symptoms reported, No ear discharge, No hearing loss, No ear pain, No blurred vision, No double vision, No eye pain, No tearing, No vision loss, No dental problems, No hoarseness, No mouth pain, No mouth swelli ng, No epistaxis, No nose congestion, No nose pain, No throat pain, No throat swelling, No other Respiratory: No no symptoms reported, No see HPI, No cough, No dyspnea on exertion, No hemoptysis, No orthopnea, No phlegm, No short of breath, No stridor, No wheezing, No other Cardiovascular: No no symptoms reported, No see HPI, No chest pain, No edema, No Hx of Intervention, No palpitations, No syncope, No vascular heart diseas, No other Gastrointestinal: see HPI, abdominal pain (RLQ) Genitourinary: No no symptoms reported; see HPI; No decreased output, No discharge, No dysuria, No frequency, No hematuria, No hesitancy, No incontinence, No nocturia, No pain, No other Musculoskeletal: No no symptoms reported, No see HPI, No back pain, No gout, No joint pain, No joint swelling, No muscle pain, No muscle stiffness, No muscle cramps, No muscle twitching, No muscle weakness, No neck pain, No other Skin: No no symptoms reported, No see HPI, No change in color, No change in hair/nails, No dryness, No hx of skin cancer, No lesions, No lumps, No pruritus, No rash, No other All Other Systems Reviewed Negative Unless Noted: Yes Past Vrkprqm-Juretj-Mslzzc Hx Patient Social History Type Used: Cigarettes 2nd Hand Smoke Exposure: Yes Recent Foreign Travel: No Contact w/Someone Who Travel: No Recent Hopitalizations: No Seasonal Allergies Seasonal Allergies: No Past Medical History Surgeries: Yes (cardiac stent placement) Respiratory: No Cardiac: Yes (stent placement ) High Cholesterol Neurological: No Genitourinary: No Gastrointestinal: No Musculoskeletal: Yes (back injury in high school) Endocrine: No HEENT: No Cancer: No Psychosocial: No Integumentary: No Physical Exam Vital Signs Capillary Refill : Height, Weight, BMI Height: 5'11.00" Weight: 156lbs. oz. 70.960719yi; 22.00 BMI Method:Stated General Appearance: No Apparent Distress, WD/WN Respiratory: Chest Non Tender, Lungs Clear, Normal Breath Sounds, No Accessory Muscle Use, No Respiratory Distress Cardiovascular: Regular Rate, Rhythm, No Edema, No Gallop, No JVD, No Murmur, Normal Peripheral Pulses Gastrointestinal: Normal Bowel Sounds, No Organomegaly, No Pulsatile Mass, Non Tender, Soft, Hernia (mild tenderness at the right inguinal area appears to have a direct hernia is easily reducible. Normal bowel sounds.) Progress/Results/Core Measures Suspected Sepsis SIRS Temperature: Pulse: Respiratory Rate: Blood Pressure / Mean: Results/Orders Vital Signs/I&O Capillary Refill : Progress Note : Time: 20:21 Progress Note This patient is a 54-year-old male presents to the emerge department complaining of a knot in his right groin area. Patient states he was helping move a refrigerator last night medication from falling over this morning woke up and had a bulge in his right groin area. On exam easily reducible appears to be a direct hernia the right inguinal area. No significant pain. No signs of strangulation. Patient is passing gas normal bowel movements. Wear jockstrap versus an inguinal strep or hernia. Follow-up with Gen. surgery as instructed. Clear liquid diet and advance slowly as tolerated. May use rhbm-gyg-[id number] laxatives to soften stool. Departure Impression Primary Impression: Inguinal hernia Disposition: HOME, SELF-CARE Condition: Stable Departure-Patient Inst. Decision time for Depature: 20:22 Referrals: ARNULFO ANDERS JOHN M MD (PCP/Family) Primary Care Physician Patient Instructions: Groin Hernia (DC) Add. Discharge Instructions: Wear jockstrap versus an inguinal strep or hernia. Follow-up with Gen. surgery as instructed. Clear liquid diet and advance slowly as tolerated. May use ukaa-qgy-vixyotp laxatives to soften stool. Scripts Diclofenac Sodium (Diclofenac Sodium) 75 Mg Tablet. 75 MG PO BID for 10 Days, #20 TAB 0 Refills Prov: ALMA DUMONT MD 08/27/20 ALMA DUMONT MD Aug 27, 2020 20:23
[2020-08-27] MEDS ORDERED: HYDROcodone/APAP 5 MG/325 MG (LORTAB) TAB PO ONE (20:30)
[2020-08-27 20:31] VITALS: BP 105/62
== END 2020-08-27 20:32 | disposition home or self-care (01) ==
LOC: EDUNIT# 20:06 → ER FS 20:07
DX: K40.90 Unilateral inguinal hernia, without obstruction or gangrene, not specified as recurrent (principal); E78.00 Pure hypercholesterolemia, unspecified; Z95.5 Presence of coronary angioplasty implant and graft; Z77.22 Contact with and (suspected) exposure to environmental tobacco smoke (acute) (chronic); Z88.0 Allergy status to penicillin; Z79.52 Long term (current) use of systemic steroids; Z79.82 Long term (current) use of aspirin
CPT/HCPCS: 99283

== ENCOUNTER 2020-09-03 20:53 | Emergency (ER) | payer OTHER ==
[~2020-09-03] VITALS: Ht 180.3 cm; Wt 74.9 kg
[~2020-09-03 20:53] MED LIST changes: +DICL75TA2 PO
[2020-09-03 21:07] VITALS: BP 144/83
[2020-09-03] MEDS ORDERED: CEPH500T PO (21:12)
[2020-09-03] MEDS ORDERED: DICL75TA2 PO (21:12)
--- NOTE | 2020-09-03 21:12 | ED EENT ---
History of Present Illness General Chief Complaint: Dental Problems/Pain Stated Complaint: TOOTH PAIN Source: patient, RN/MD, RN notes reviewed History of Present Illness Date Seen by Provider: Sep 03, 2020 Time Seen by Provider: 21:00 Initial Comments This patient is a 54-year-old male presents to the emerge from for dental pain. Patient states that he had a bad tooth for months and has a scheduled appointment tomorrow 1. Patient presents to the emergency department requesting pain medication. Prearrival Treatment: over the counter meds Allergies and Home Medications Allergies Coded Allergies: Penicillins (Verified Allergy, Intermediate, Hives, 04/11/20) Home Medications Aspirin 81 Mg Tablet.dr, 81 MG PO DAILY, (Reported) Atorvastatin Calcium 80 Mg Tablet, 80 MG PO DAILY, (Reported) Cyclobenzaprine HCl 10 Mg Tablet, 10 MG PO TID PRN for MUSCLE CRAMPS, (Reported) Diclofenac Sodium 75 Mg Tablet.dr, 75 MG PO BID Prescribed by: ALMA DUMONT on 08/27/202022 Ibuprofen 800 Mg Tablet, 800 MG PO DAILY PRN for PAIN-MILD (1-4), (Reported) Prednisone 20 Mg Tab, 40 MG PO DAILY Prescribed by: ALMA KEANE on 05/27/20 1524 Sulfamethoxazole/Trimethoprim 1 Each Tablet, 1 EACH PO BID Prescribed by: MARCUS ZHU on 04/13/20 1649 Patient Home Medication List Home Medication List Reviewed: Yes Review of Systems Review of Systems Constitutional: No no symptoms reported; see HPI; No chills, No diaphoresis, No dizziness, No fever, No malaise, No weakness, No weight gain, No weight loss, No other Eyes: Denies No Symptoms Reported, Denies See HPI, Denies Blindness, Denies Blurred Vision, Denies Drainage, Denies Decreased Acuity, Denies Foreign Body Sensation, Denies Inflammation, Denies Pain, Denies Photophobia, Denies Previous Injury, Denies Shadows, Denies Tunnel Vision, Denies Vision Changes, Denies Contact Lenses, Denies Glasses, Denies Other Ears: Denies No Symptoms Reported, Denies See HPI, Denies Dizziness, Denies Pain, Denies Tinnitus, Denies Bloody Discharge, Denies Clear Discharge, Denies Purulent Discharge, Denies Serosanguinous Discharge, Denies Previous Injury, Denies Other Nose: denies no symptoms reported, denies see HPI, denies clots, denies congestion, denies epistaxis, denies pain, denies bloody discharge, denies clear discharge, denies purulent discharge, denies serosanguinous discharge, denies previous injury, denies other Mouth: see HPI, pain Throat: denies no symptoms reported, denies see HPI, denies pain, denies swelling, denies discharge, denies neck stiffness, denies hoarse, denies aphonia, denies muffled, denies painful swallowing, denies difficulty with fluids, denies previous injury, denies other Respiratory: No no symptoms reported, No see HPI, No cough, No dyspnea on exertion, No hemoptysis, No orthopnea, No phlegm, No short of breath, No stridor, No wheezing, No other Cardiovascular: No no symptoms reported, No see HPI, No chest pain, No edema, No Hx of Intervention, No palpitations, No syncope, No vascular heart diseas, No other Gastrointestinal: No RUQ, No LUQ, No RLQ, No LLQ, No no symptoms reported, No see HPI, No abdominal pain, No constipation, No diarrhea, No dysphagia, No hematemesis, No heartburn, No jaundice, No loss of appetite, No melena, No nausea, No vomiting, No other All Other Systems Reviewed Negative Unless Noted: Yes Past Ahkojwi-Lkmrcx-Sqtfve Hx Patient Social History Type Used: Cigarettes 2nd Hand Smoke Exposure: Yes Recent Foreign Travel: No Contact w/Someone Who Travel: No Recent Hopitalizations: No Seasonal Allergies Seasonal Allergies: No Past Medical History Surgeries: Yes (cardiac stent placement) Respiratory: No Cardiac: Yes (stent placement ) High Cholesterol Neurological: No Genitourinary: No Gastrointestinal: No Musculoskeletal: Yes (back injury in high school) Endocrine: No HEENT: No Cancer: No Psychosocial: No Integumentary: No Physical Exam Height, Weight, BMI Height: 5'11.00" Weight: 156lbs. oz. 70.777804hl; 22.00 BMI Method:Stated General Appearance: WD/WN, no apparent distress, mild distress, moderate distress, severe distress, cachetic Mouth/Throat: other (broken tooth with nerve exposure left molar.) Cardiovascular: normal peripheral pulses, regular rate, rhythm, no edema, no gallop, no JVD, no murmur Respiratory: chest non-tender, lungs clear, normal breath sounds, no respiratory distress, no accessory muscle use Gastrointestinal: normal bowel sounds, non tender, soft, no organomegaly, no pulsatile mass, tenderness, spleenomegaly Skin: normal color, warm/dry Progress/Results/Core Measures Progress Progress Note : Time: 21:10 Progress Note Diclofenac as needed for pain. May continue Tylenol. Anbesol or Orajel as needed. Follow-up with your dentist as scheduled appointment tomorrow. Finish all antibiotics as written. Departure Impression Primary Impression: Dental caries extending into dentine Additional Impression: Fractured tooth Disposition: HOME, SELF-CARE Condition: Stable Departure-Patient Inst. Decision time for Depature: 21:11 Referrals: JERROD ARMAS MD (PCP/Family) Primary Care Physician Patient Instructions: Dental Pain (DC) Add. Discharge Instructions: Diclofenac as needed for pain. May continue Tylenol. Anbesol or Orajel as needed. Follow-up with your dentist as scheduled appointment tomorrow. Finish all antibiotics as written. All discharge instructions reviewed with patient and/or family. Voiced understanding. Scripts Diclofenac Sodium (Diclofenac Sodium) 75 Mg Tablet.dr 75 MG PO BID for 10 Days, #20 TAB 0 Refills Prov: ALMA DUMONT MD 09/03/20 Cephalexin (Cephalexin) 500 Mg Tablet 500 MG PO BID, #20 TAB 0 Refills Prov: ALMA DUMONT MD 09/03/20 ALMA DUMONT MD Sep 03, 2020 21:12
== END 2020-09-03 21:16 | disposition home or self-care (01) ==
LOC: EDUNIT# 20:53 → ER FS 20:54
DX: S02.5XXA Fracture of tooth (traumatic), initial encounter for closed fracture (principal); K02.9 Dental caries, unspecified; E78.00 Pure hypercholesterolemia, unspecified; Z20.828 Contact with and (suspected) exposure to other viral communicable diseases; Z95.5 Presence of coronary angioplasty implant and graft; Z77.22 Contact with and (suspected) exposure to environmental tobacco smoke (acute) (chronic); Z79.52 Long term (current) use of systemic steroids; Z79.82 Long term (current) use of aspirin; Z88.0 Allergy status to penicillin; X58.XXXA Exposure to other specified factors, initial encounter
CPT/HCPCS: 99282

== ENCOUNTER 2020-11-09 02:26 | Emergency (ER) | payer OTHER ==
[~2020-11-09] VITALS: Ht 180.3 cm; Wt 72.6 kg
[~2020-11-09 02:26] MED LIST changes: +CEPH500T PO
[2020-11-09 02:33] VITALS: BP 121/89
--- NOTE | 2020-11-09 03:25 | ED Upper Extremity ---
General Chief Complaint: Upper Extremity Stated Complaint: LEFT SHOULDER PAIN Nursing Triage Note: PT AMBULATE TO ROOM FS02 WITH C/O LEFT SHOULDER PAIN. PT REPORTS REACHING UP FOR SOMETHING ON A SHELF AND FELT A "POP". PT REPORTS INJURY HAPPENED ON THURSDAY. PT REPORTS PAIN IS WORSE TODAY. Nursing Sepsis Screen: No Definite Risk Source: patient History of Present Illness Date Seen by Provider: Nov 09, 2020 Time Seen by Provider: 03:00 Initial Comments Patient is a 55-year-old right-handed male presents with acute onset left shoulder pain with popping sensation while reaching above his head at work day and a half ago. Patient states he proceeded to return to work yesterday and uses arm with significant increased pain later this evening with difficulty sleeping secondary to this same. Pain is dull aching and worse with left arm movement and rotation. No chest pain shortness of breath. No prior shoulder injury. No other acute symptoms or complaints. Onset: yesterday Pain/Injury Location: left shoulder Method of Injury: other Modifying Factors: Improves With Movement Allergies and Home Medications Allergies Coded Allergies: Penicillins (Verified Allergy, Intermediate, Hives, 04/11/20) Home Medications Aspirin 81 Mg Tablet.dr, 81 MG PO DAILY, (Reported) Atorvastatin Calcium 80 Mg Tablet, 80 MG PO DAILY, (Reported) Cephalexin 500 Mg Tablet, 500 MG PO BID Prescribed by: ALMA DUMONT on 09/03/202111 Cyclobenzaprine HCl 10 Mg Tablet, 10 MG PO TID PRN for MUSCLE CRAMPS, (Reported) Diclofenac Sodium 75 Mg Tablet.dr, 75 MG PO BID Prescribed by: ALMA DUMONT on 08/27/202022 Diclofenac Sodium 75 Mg Tablet.dr, 75 MG PO BID Prescribed by: ALMA DUMONT on 09/03/202111 Ibuprofen 800 Mg Tablet, 800 MG PO DAILY PRN for PAIN-MILD (1-4), (Reported) Prednisone 20 Mg Tab, 40 MG PO DAILY Prescribed by: ALMA KEANE on 05/27/20 152 Sulfamethoxazole/Trimethoprim 1 Each Tablet, 1 EACH PO BID Prescribed by: MARCUS ZHU on 04/13/20 1649 Patient Home Medication List Home Medication List Reviewed: Yes Review of Systems Constitutional: no symptoms reported EENTM: see HPI Respiratory: no symptoms reported Cardiovascular: no symptoms reported Gastrointestinal: no symptoms reported Genitourinary: no symptoms reported Musculoskeletal: joint pain Skin: no symptoms reported All Other Systems Reviewed Negative Unless Noted: Yes Past Sfdwpjg-Mndpmz-Ngxpxm Hx Past Med/Social Hx: Reviewed Nursing Past Med/Soc Hx Patient Social History Alcohol Use: Denies Use Recreational Drug Use: No Smoking Status: Current Everyday Smoker Type Used: Cigarettes 2nd Hand Smoke Exposure: Yes Recent Foreign Travel: No Contact w/Someone Who Travel: No Recent Infectious Disease Expo: No Recent Hopitalizations: No Physical Abuse: No Sexual Abuse: No Mistreated: No Fear: No Seasonal Allergies Seasonal Allergies: No Past Medical History Surgeries: Yes (cardiac stent placement, [employer]) Respiratory: No Cardiac: Yes (stent placement ) High Cholesterol Neurological: No Genitourinary: No Gastrointestinal: No Musculoskeletal: Yes (back injury in high school) Endocrine: No HEENT: No Cancer: No Psychosocial: No Integumentary: No Physical Exam Vital Signs Vital Signs - First Documented 11/09/20 02:33 Temp 36.9 Pulse 84 Resp 17 B/P (MAP) 121/89 (100) O2 Delivery Room Air Capillary Refill : Less Than 3 Seconds Height, Weight, BMI Height: 5'11.00" Weight: 156lbs. oz. 70.968941gs; 22.00 BMI Method:Stated General Appearance: mild distress HEENT: PERRL/EOMI Neck: supple Cardiovascular: normal peripheral pulses, regular rate, rhythm, other (radial and ulnar pulses are symmetric) Respiratory: chest non-tender, lungs clear Gastrointestinal: normal bowel sounds, non tender, soft Shoulder: No bone tenderness (tenderness over supraspinatus insertion point with pain on range of motion and inability to abduct and flex arm secondary pain); limited ROM, soft tissue tenderness, swelling Elbow/Forearm: normal inspection, non-tender, normal ROM Wrist: Yes normal inspection Hand: normal inspection Neurologic/Tendon: normal sensation, normal motor functions, normal tendon functions Neurologic/Psychiatric: alert, oriented x 3 Progress/Results/Core Measures Results/Orders My Orders Orders - CASEY GONZALES DO Shoulder 3 View Left (11/09/20 02:51) Vital Signs/I&O 11/09/20 02:33 Temp 36.9 Pulse 84 Resp 17 B/P (MAP) 121/89 (100) O2 Delivery Room Air Blood Pressure Mean: 100 Departure Communication (Admissions) Left shoulder x-ray: No dislocation present. Exam consistent with rotator cuff injury. Recommend supportive care with work comp follow-up. Impression Primary Impression: Left anterior shoulder pain Additional Impression: Rotator cuff injury Disposition: HOME, SELF-CARE Condition: Stable Admissions Time/Decision to Admit Time: 03:24 Departure-Patient Inst. Referrals: JERROD ARMAS MD (PCP/Family) Primary Care Physician Patient Instructions: Rotator Cuff Injury Add. Discharge Instructions: Please wear arm sling avoid arm use until follow-up with work comp provider or PCP All discharge instructions reviewed with patient and/or family. Voiced understanding. Scripts Hydrocodone/Acetaminophen (Hydrocodone-Acetamin 5-325 mg) 1 Each Tablet 1 EACH PO Q6H, #20 TAB Prov: CASEY GONZALES DO 11/09/20 CASEY GONZALES DO Nov 09, 2020 03:25
[2020-11-09] MEDS ORDERED: ACHD5005 PO (03:26)
[2020-11-09] MEDS ORDERED: HYDROcodone/APAP 5 MG/325 MG (LORTAB) TAB PO ONE (03:30)
--- NOTE | 2020-11-09 06:02 | Diagnostic Imaging Report ---
INDICATION: PAIN TECHNIQUE: Three views of the left shoulder CORRELATION STUDY: None FINDINGS: Left shoulder partially obscured by overlying pacemaker. Given this, the glenohumeral and acromioclavicular alignment are maintained and unremarkable. There is no evidence for acute fracture or dislocation. The visualized soft tissues are unremarkable. IMPRESSION: 1. Negative for acute bony abnormality about the shoulder. Dictated by: Dictated on workstation # [id number]
== END 2020-11-09 03:49 | disposition home or self-care (01) ==
LOC: EDUNIT# 02:26 → ER FS 02:29
DX: S46.002A Unspecified injury of muscle(s) and tendon(s) of the rotator cuff of left shoulder, initial encounter (principal); E78.00 Pure hypercholesterolemia, unspecified; F17.210 Nicotine dependence, cigarettes, uncomplicated; Z95.5 Presence of coronary angioplasty implant and graft; Z95.0 Presence of cardiac pacemaker; Z88.0 Allergy status to penicillin; Z79.82 Long term (current) use of aspirin; Z79.52 Long term (current) use of systemic steroids; X58.XXXA Exposure to other specified factors, initial encounter
CPT/HCPCS: 73030; 99283; A4565

== ENCOUNTER 2021-04-24 19:59 | Emergency (ER) | payer BC, OTHER ==
[~2021-04-24] VITALS: Ht 177.8 cm; Wt 73.5 kg
[~2021-04-24 19:59] MED LIST changes: +ACHD5005 PO
[2021-04-24 20:13] VITALS: BP 114/79
[2021-04-24 20:15] LABS: BILIRUBIN,URINE NEGATIVE (NEGATIVE); CLARITY,URINE CLEAR; COLOR,URINE YELLOW; GLUCOSE, URINE (UA) NEGATIVE (NEGATIVE); KETONES,URINE NEGATIVE (NEGATIVE); LEUKOCYTE ESTERASE ,URINE NEGATIVE (NEGATIVE); NITRITE,URINE NEGATIVE (NEGATIVE); PROTEIN,URINE NEGATIVE (NEGATIVE)
[2021-04-24 20:18] LABS: BACTERIA,URINE NEGATIVE /HPF; RBC,URINE RARE /HPF; SQUAMOUS EPITHELIAL CELL,UR RARE /HPF; WBC,URINE 0-2 /HPF
--- NOTE | 2021-04-24 20:22 | ED Abdominal Pain ---
General Chief Complaint: Abdominal/GI Problems Stated Complaint: LT SIDE LOWER ABD PAIN Nursing Triage Note: pt states 3 days of abd pain, has been constipated recently, pt did have small soft stool today but is not regular normally Sepsis Screen: No Definite Risk History of Present Illness Date Seen by Provider: April 24, 2021 Time Seen by Provider: 20:15 Initial Comments 55-year-old male presents with lower abdominal pain for the past 3 days, intermittently with no associated nausea, vomiting or diarrhea. States that he does always have constipation and today had a small soft bowel movement with some alleviation of his pain and on arrival to the ER he does not have any pain in his abdomen. He requests a work note. Allergies and Home Medications Allergies Coded Allergies: Penicillins (Verified Allergy, Intermediate, Hives, 04/11/20) Home Medications Aspirin 81 Mg Tablet.dr, 81 MG PO DAILY, (Reported) Atorvastatin Calcium 80 Mg Tablet, 80 MG PO DAILY, (Reported) Cephalexin 500 Mg Tablet, 500 MG PO BID Prescribed by: ALMA DUMONT on 09/03/202111 Cyclobenzaprine HCl 10 Mg Tablet, 10 MG PO TID PRN for MUSCLE CRAMPS, (Reported) Diclofenac Sodium 75 Mg Tablet., 75 MG PO BID Prescribed by: ALMA DUMONT on 08/27/202022 Diclofenac Sodium 75 Mg Tablet.dr, 75 MG PO BID Prescribed by: ALMA DUMONT on 09/03/202111 Hydrocodone/Acetaminophen 1 Each Tablet, 1 EACH PO Q6H Prescribed by: CASEY GONZALES on 11/09/20 0326 Ibuprofen 800 Mg Tablet, 800 MG PO DAILY PRN for PAIN-MILD (1-4), (Reported) Prednisone 20 Mg Tab, 40 MG PO DAILY Prescribed by: ALMA KEANE on 05/27/20 1524 Sulfamethoxazole/Trimethoprim 1 Each Tablet, 1 EACH PO BID Prescribed by: MARCUS ZHU on 04/13/20 1649 Patient Home Medication List Home Medication List Reviewed: Yes Review of Systems Review of Systems Constitutional: No chills, No fever, No malaise, No weakness EENTM: No Symptoms Reported Respiratory: No Symptoms Reported; Denies Cough Cardiovascular: Denies Chest Pain, Denies Edema, Denies Palpitations Gastrointestinal: Denies Abdomen Distended; Abdominal Pain, Constipated; Denies Diarrhea, Denies Difficulty Swallowing, Denies Nausea, Denies Poor Appetite, Denies Poor Fluid Intake, Denies Rectal Bleeding Genitourinary: Denies Frequency, Denies Flank Pain, Denies Hematuria Musculoskeletal: No back pain, No joint pain Past Rqwgkuw-Ocrrdg-Jvqaan Hx Past Med/Social Hx: Reviewed Nursing Past Med/Soc Hx Patient Social History Alcohol Use: Denies Use Smoking Status: Current Everyday Smoker Type Used: Cigarettes 2nd Hand Smoke Exposure: Yes Recent Infectious Disease Expo: No Recent Hopitalizations: No Seasonal Allergies Seasonal Allergies: No Past Medical History Surgeries: Yes (cardiac stent placement, [employer]) Respiratory: No Cardiac: Yes (stent placement ) High Cholesterol Neurological: No Genitourinary: No Gastrointestinal: No Musculoskeletal: Yes (back injury in high school) Endocrine: No HEENT: No Cancer: No Psychosocial: No Integumentary: No Physical Exam Vital Signs Vital Signs - First Documented 04/24/21 20:13 Temp 36.3 Pulse 94 Resp 18 B/P (MAP) 114/79 (91) Pulse Ox 95 O2 Delivery Room Air Capillary Refill : Less Than 3 Seconds Height/Weight/BMI Height: 5'11.00" Weight: 156lbs. oz. 70.732018pl; 23.00 BMI Method:Stated General Appearance: WD/WN, no apparent distress Respiratory: chest non-tender, lungs clear, normal breath sounds Cardiovascular: regular rate, rhythm, no edema, no gallop Gastrointestinal: normal bowel sounds, non tender, soft, no organomegaly, no pulsatile mass Neurologic/Psychiatric: alert, normal mood/affect Skin: normal color, warm/dry Progress/Results/Core Measures Results/Orders Lab Results Laboratory Tests Test 04/24/21 20:08 Range/Units Urine Color YELLOW Urine Clarity CLEAR Urine pH 6.0 5-9 Urine Specific [place] 1.025 H 1.016-1.022 Urine Protein NEGATIVE NEGATIVE Urine Glucose (UA) NEGATIVE NEGATIVE Urine Ketones NEGATIVE NEGATIVE Urine Nitrite NEGATIVE NEGATIVE Urine Bilirubin NEGATIVE NEGATIVE Urine Urobilinogen 0.2 < = 1.0 MG/DL Urine Leukocyte Esterase NEGATIVE NEGATIVE Urine RBC (Auto) NEGATIVE NEGATIVE Urine RBC RARE /HPF Urine WBC 0-2 /HPF Urine Squamous Epithelial Cells RARE /HPF Urine Crystals NONE /LPF Urine Bacteria NEGATIVE /HPF Urine Casts NONE /LPF Urine Mucus NEGATIVE /LPF Urine Culture Indicated NO My Orders Orders - ROVENSTINE,RENNY L DO Ua Culture If Indicated (5/26/21 20:01) Vital Signs/I&O 04/24/21 20:13 Temp 36.3 Pulse 94 Resp 18 B/P (MAP) 114/79 (91) Pulse Ox 95 O2 Delivery Room Air Blood Pressure Mean: 91 Progress Progress Note : Progress Note Benign abdominal exam without tenderness, normal vital signs. History of present illness without significant concern, patient has slow bowel transit all the time, poor diet and poor intake of water. Requests work note. Advised follow-up with PCP and discussed diet. Departure Impression Primary Impression: Abdominal pain Qualified Codes: R10.32 - Left lower quadrant pain Disposition: HOME, SELF-CARE Condition: Stable Departure-Patient Inst. Decision time for Depature: 20:22 Referrals: JERROD ARMAS MD (PCP/Family) Primary Care Physician Patient Instructions: Abdominal Pain, Adult ED Work/School Note: Work Release Form Date Seen in the Emergency Department: April 24, 2021 Return to Work: April 25, 2021 Restrictions: No Restrictions RENNY LAM DO April 24, 2021 20:22
== END 2021-04-24 20:25 | disposition home or self-care (01) ==
LOC: EDUNIT# 19:59 → ER FS 20:01
DX: R10.9 Unspecified abdominal pain (principal); E78.00 Pure hypercholesterolemia, unspecified; F17.210 Nicotine dependence, cigarettes, uncomplicated; Z79.899 Other long term (current) drug therapy
CPT/HCPCS: 81000; 99282

== ENCOUNTER 2021-12-08 13:44 | Inpatient (IN) | payer BC ==
[~2021-12-08] VITALS: Ht 180.3 cm; Wt 73.5 kg
[~2021-12-08 13:44] MED LIST changes: +CYCL10TA25 PO; -CYCL10TA9 PO; -SULF1TAB35 PO; +SULF1TAB38 PO
[2021-12-08 14:01] LABS: BASOPHILS % (AUTO) 0 % (0-10); EOSINOPHILS # (AUTO) 0.1 10^3/uL (0.0-0.3); EOSINOPHILS % (AUTO) 1 % (0-10); HEMATOCRIT 55 % (40-54); HEMOGLOBIN 18.4 g/dL (13.3-17.7); LYMPHOCYTES # (AUTO) 1.9 X 10^3 (1.0-4.0); LYMPHOCYTES % (AUTO) 19 % (12-44); MEAN CORPUSCULAR HEMOGLOBIN 32 pg (25-34); MEAN CORPUSCULAR HGB CONC 34 g/dL (32-36); MEAN CORPUSCULAR VOLUME 95 fL (80-99); MEAN PLATELET VOLUME 8.3 fL (9.0-12.2); MONOCYTES # (AUTO) 0.6 X 10^3 (0.0-1.0); MONOCYTES % (AUTO) 6 % (0-12); NEUTROPHILS # (AUTO) 7.2 X 10^3 (1.8-7.8); NEUTROPHILS % (AUTO) 73 % (42-75); PLATELET COUNT 278 10^3/uL (130-400); WHITE BLOOD COUNT 9.9 10^3/uL (4.3-11.0)
[2021-12-08 14:23] LABS: ALANINE AMINOTRANSFERASE 13 U/L (0-55); ALBUMIN 4.2 GM/DL (3.2-4.5); ALKALINE PHOSPHATASE 138 U/L (40-136); BILIRUBIN,TOTAL 0.4 MG/DL (0.1-1.0); BUN/CREATININE RATIO 15; CALCIUM 9.6 MG/DL (8.5-10.1); CARBON DIOXIDE 25 MMOL/L (21-32); CHLORIDE 101 MMOL/L (98-107); CREATININE SERUM 0.98 MG/DL (0.60-1.30); GFR ESTIMATED 79; GLUCOSE 143 MG/DL (70-105); POTASSIUM 4.4 MMOL/L (3.6-5.0); SODIUM 136 MMOL/L (135-145); TOTAL PROTEIN 7.1 GM/DL (6.4-8.2)
[2021-12-08] MEDS ORDERED: ASPIRIN 81 MG CHEW (CHILDREN'S ASA) PO ONE (14:30)
[2021-12-08] MEDS ORDERED: NITROGLYCERIN 2% OINT 1 GM UNIT DOSE PACKET TOP ONE (14:30)
[2021-12-08] MEDS ORDERED: NITROGLYCERIN 0.4 MG SL TABS BTL 25'S SL PRN ×2 (14:30→16:45)
--- NOTE | 2021-12-08 14:32 | Diagnostic Imaging Report ---
INDICATION: Chest pain. TECHNIQUE: Single-view chest 02:00 p.m. CORRELATION STUDY: 06/09/2020. FINDINGS: Left-sided dual-chamber pacemaker. Heart size and mediastinum are unremarkable. There is prominence of the central pulmonary arteries. Hyperinflated lung james with mildly prominent interstitial markings. Right costophrenic angle is incompletely imaged but there is no suggestion for significant effusion or pneumothorax. IMPRESSION: 1. Negative for acute abnormality of the chest. Findings of COPD. Dictated by: Dictated on workstation # [id number]
[2021-12-08] MEDS ORDERED: ENOXAPARIN 80 MG/0.8 ML (LOVENOX) SYR SC ONE (15:15)
--- NOTE | 2021-12-08 15:26 | ED Chest Pain ---
General Chief Complaint: Chest Pain Stated Complaint: CHEST PAIN Nursing Triage Note: Patient presents to the ED with c/o chest pain. Reports that the pain began yesterday without exertion. States that today the pain became more severe while he was checking a meters. Is currently being treated for an upper respiratory infection and states he tested negative for COVID and Influenza on Thursday. Source: patient Exam Limitations: no limitations History of Present Illness Date Seen by Provider: Dec 08, 2021 Time Seen by Provider: 14:00 Initial Comments Patient is a 56-year-old male with history of coronary disease, dyslipidemia and tobaccoism who presents with substernal chest pain nonradiating nonmigratory present at rest and worse with exertion for the past 24 hours. Pain is is described as pressure-like and has moderate. Today's pain episode is more severe. Denies nausea vomiting shortness of breath, abdominal pain and sweats. No leg pain or swelling. No other acute symptoms or complaints. Patient took a single baby aspirin prior to ED arrival. 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 NTG SL TRAVEL INSURANCE AGENT: No Associated Symptoms: denies symptoms Allergies and Home Medications Allergies Coded Allergies: Penicillins (Verified Allergy, Intermediate, Hives, 04/11/20) Patient Home Medication List Home Medication List Reviewed: Yes Aspirin (Aspir 81) 81 Mg Tablet., 81 MG PO DAILY, (Reported) Entered as Reported by: ARA AIKEN on 04/11/20 1316 Atorvastatin Calcium (Atorvastatin Calcium) 80 Mg Tablet, 80 MG PO DAILY, (Reported) Entered as Reported by: ARA AIKEN on 04/11/20 1313 Cephalexin (Cephalexin) 500 Mg Tablet, 500 MG PO BID Prescribed by: ALMA DUMONT on 09/03/202111 Cyclobenzaprine HCl (Cyclobenzaprine HCl) 10 Mg Tablet, 10 MG PO TID PRN for MUSCLE CRAMPS, (Reported) Entered as Reported by: ALIYA SHEPHERD on 04/12/20 110 Diclofenac Sodium (Diclofenac Sodium) 75 Mg Tablet.dr 75 MG PO BID Prescribed by: ALMA DUMONT on 08/27/202022 Diclofenac Sodium (Diclofenac Sodium) 75 Mg Tablet.dr, 75 MG PO BID Prescribed by: ALMA DUMONT on 09/03/20 211 Hydrocodone/Acetaminophen (Hydrocodone-Acetamin 5-325 mg) 1 Each Tablet, 1 EACH PO Q6H Prescribed by: CASEY GONZALES on 11/09/20 0326 Ibuprofen (Ibuprofen) 800 Mg Tablet, 800 MG PO DAILY PRN for PAIN-MILD (1-4), (Reported) Entered as Reported by: ALIYA SHEPHERD on 04/12/20 1107 Prednisone (Prednisone) 20 Mg Tab, 40 MG PO DAILY Prescribed by: ALMA KEANE on 05/27/20 1524 Sulfamethoxazole/Trimethoprim (Bactrim Ds Tablet) 1 Each Tablet, 1 EACH PO BID Prescribed by: MARCUS ZHU on 04/13/20 1649 Review of Systems Review of Systems Constitutional: see HPI EENTM: See HPI Respiratory: See HPI Cardiovascular: See HPI Gastrointestinal: See HPI Genitourinary: See HPI Musculoskeletal: see HPI Skin: see HPI Psychiatric/Neurological: See HPI Endocrine: See HPI Hematologic/Lymphatic: See HPI All Other Systems Reviewed Negative Unless Noted: Yes Past Xcgeuda-Jzrith-Mdxdpl Hx Patient Social History Tobacco Use?: Yes Tobacco type used: Cigarettes Smoking Status: Current Everyday Smoker Use of E-Cig and/or Vaping dev: No Substance use?: No Alcohol Use?: No Pt feels they are or have been: No Immunizations Up To Date First/Initial COVID19 Vaccinat: Not Currently Vaccinated Seasonal Allergies Seasonal Allergies: No Past Medical History Surgery/Hospitalization HX: HTN; High Cholesterol; Pacemaker Surgeries: Yes (cardiac stent placement, [employer]) Respiratory: No Cardiac: Yes (stent placement ) High Cholesterol Neurological: No Genitourinary: No Gastrointestinal: No Musculoskeletal: Yes (back injury in high school) Endocrine: No HEENT: No Cancer: No Psychosocial: No Integumentary: No Physical Exam Vital Signs Vital Signs - First Documented 12/08/21 13:50 Temp 36.7 Pulse 71 Resp 13 B/P (MAP) 126/83 (97) Pulse Ox 94 O2 Delivery Room Air Capillary Refill : Less Than 3 Seconds Height, Weight, BMI Height: 5'11.00" Weight: 156lbs. oz. 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 Norm as Tested Skin: Normal Color Lymphatic: No Adenopathy Focused Exam Sepsis Stage: Ruled Out Progress/Results/Core Measures Results/Orders Lab Results Laboratory Tests Test 12/08/21 13:55 Range/Units White Blood Count 9.9 4.3-11.0 10^3/uL Red Blood Count 5.77 H 4.30-5.52 10^6/uL Hemoglobin 18.4 H 13.3-17.7 g/dL Hematocrit 55 H 40-54 % Mean Corpuscular Volume 95 80-99 fL Mean Corpuscular Hemoglobin 32 25-34 pg Mean Corpuscular Hemoglobin Concent 34 32-36 g/dL Red Cell Distribution Width 13.6 10.0-14.5 % Platelet Count 278 130-400 10^3/uL Mean Platelet Volume 8.3 L 9.0-12.2 fL Immature Granulocyte % (Auto) 0 % Neutrophils (%) (Auto) 73 42-75 % Lymphocytes (%) (Auto) 19 12-44 % Monocytes (%) (Auto) 6 0-12 % Eosinophils (%) (Auto) 1 0-10 % Basophils (%) (Auto) 0 0-10 % Neutrophils # (Auto) 7.2 1.8-7.8 X 10^3 Lymphocytes # (Auto) 1.9 1.0-4.0 X 10^3 Monocytes # (Auto) 0.6 0.0-1.0 X 10^3 Eosinophils # (Auto) 0.1 0.0-0.3 10^3/uL Basophils # (Auto) 0.0 0.0-0.1 10^3/uL Immature Granulocyte # (Auto) 0.0 0.0-0.1 10^3/uL D-Dimer 0.50 H 0.00-0.49 UG/ML Sodium Level 136 135-145 MMOL/L Potassium Level 4.4 3.6-5.0 MMOL/L Chloride Level 101 98-107 MMOL/L Carbon Dioxide Level 25 21-32 MMOL/L Anion Gap 10 5-14 MMOL/L Blood Urea Nitrogen 15 7-18 MG/DL Creatinine 0.98 0.60-1.30 MG/DL Estimat Glomerular Filtration Rate 79 BUN/Creatinine Ratio 15 Glucose Level 143 H 70-105 MG/DL Calcium Level 9.6 8.5-10.1 MG/DL Corrected Calcium 8.5-10.1 MG/DL Total Bilirubin 0.4 0.1-1.0 MG/DL Aspartate Amino Transf (AST/SGOT) 20 5-34 U/L Alanine Aminotransferase (ALT/SGPT) 13 0-55 U/L Alkaline Phosphatase 138 H 40-136 U/L Troponin I 0.71 *H <0.30 NG/ML Total Protein 7.1 6.4-8.2 GM/DL Albumin 4.2 3.2-4.5 GM/DL My Orders Orders - CASEY GONZALES DO Cbc With Automated Diff (12/08/21 13:57) Comprehensive Metabolic Panel (12/08/21 13:57) Troponin I Fs (12/08/21 13:57) Chest 1 View Ap/Pa Only (12/08/21 13:57) Fibrin Degradation Products (12/08/21 13:57) Ekg-Prn For Chest Pain Or Rhyt (12/08/21 13:57) Aspirin Chewable Tablet (Baby Aspirin Ch (12/08/21 14:30) Nitroglycerin Ointment (Nitrobid Ointme (12/08/21 14:30) Nitroglycerin 0.4 Mg Btl 25's (Nitrostat (12/08/21 14:30) Ekg Tracing (12/08/21 14:33) Enoxaparin Injection (Lovenox Injection) (12/08/21 15:15) Medications Given in ED Current Medications Medications Dose Ordered Sig/Herrera Route Start Time Stop Time Status Last Admin Dose Admin Aspirin 324 mg ONCE ONCE PO 12/08/21 14:30 12/08/21 14:31 DC 12/08/21 14:40 324 MG Nitroglycerin 1 inch ONCE ONCE TOP 12/08/21 14:30 12/08/21 14:31 DC 12/08/21 14:40 1 INCH Nitroglycerin PHARMACY TO DOSE PRN PRN SL 12/08/21 14:30 12/08/21 14:40 0.4 MG Vital Signs/I&O 12/08/21 13:50 Temp 36.7 Pulse 71 Resp 13 B/P (MAP) 126/83 (97) Pulse Ox 94 O2 Delivery Room Air Blood Pressure Mean: 97 Departure Communication (Admissions) EKG: Bifascicular block, nonspecific ST-T wave changes, no acute ST segment elevation. Atypical chest pain resolved with aspirin nitroglycerin in the emergency department. Aspirin and Lovenox given. Troponin marginally elevated. No acute decorative ST segment elevation segments on EKG. Dr. Szymanski consulted. Dr. Romero excepts to [facility]. Impression Primary Impression: Non-STEMI (non-ST elevated myocardial infarction) Disposition: ADMITTED INPATIENT Condition: Stable Admissions Decision to Admit Reason: Admit from ER (General) Decision to Admit/Date: Dec 08, 2021 Time/Decision to Admit Time: 15:00 Departure-Patient Inst. Referrals: MARCELL DE LA CRUZ APRN (PCP) Primary Care Physician [facility] (Family) Primary Care Physician CASEY GONZALES DO Dec 08, 2021 15:26
[2021-12-08] MEDS ORDERED: morphine INJ 4 MG/ML 1 ML (VIAL/SYRINGE) IV PRN (16:45)
[2021-12-08] MEDS ORDERED: ONDANSETRON 4 MG/2 ML (SDV) Z0FRAN IV PRN (16:45)
[2021-12-08] MEDS ORDERED: diphenhydrAMINE 25 MG TAB (BENADRYL) PO PRN (16:45)
[2021-12-08] MEDS ORDERED: polyethylene glycoL POWDER 17 GM (MIRALAX) PACK PO PRN (16:45)
[2021-12-08] MEDS ORDERED: BISACODYL 10 MG SUPP (DULCOLAX) PR PRN (16:45)
[2021-12-08] MEDS ORDERED: NALOXONE 0.4 MG/ML 1 ML (NARCAN) VIAL IV PRN (16:45)
[2021-12-08] MEDS ORDERED: ANTACID SUSP 30 ML UDC (MYLANTA) PO PRN (16:45)
[2021-12-08] MEDS ORDERED: diphenhydrAMINE 50 MG/ML INJ (BENADRYL) IVP PRN (16:45)
[2021-12-08] MEDS ORDERED: MELATONIN 3 MG TABLET PO PRN (16:45)
[2021-12-08] MEDS ORDERED: PATIENT MAY USE OWN MEDS, ALL PO SCH (16:45)
[2021-12-08] MEDS ORDERED: ONDANSETRON 4 MG (ZOFRAN) ORAL DISSOLVE TAB PO PRN (16:45)
[2021-12-08] MEDS ORDERED: ACETAMINOPHEN 325 MG TABLET PO PRN (16:45)
[2021-12-08 16:58] VITALS: BP 112/77
[2021-12-08] MEDS ORDERED: RT-ALBUTEROL SULF 2.5 MG/3 ML PRE-MIX VIAL INH PRN (17:15)
[2021-12-08] MEDS: ENOXAPARIN 80 MG/0.8 ML (LOVENOX) SYR SC SCH (18:43)
[2021-12-08] MEDS ORDERED: NICOTINE 21 MG (NICODERM) PATCH ONE (19:40)
[2021-12-08] MEDS: NICOTINE 21 MG (NICODERM) PATCH TD SCH (19:42)
[2021-12-08 20:00] VITALS: BP 101/65
[2021-12-08] MEDS ORDERED: RT-ALBUTEROL SULF 2.5 MG/3 ML PRE-MIX VIAL ONE (20:08)
[2021-12-08] MEDS: RT-ALBUTEROL SULF 2.5 MG/3 ML PRE-MIX VIAL INH SCH (20:10)
[2021-12-08] MEDS: DOCUSATE SODIUM 100 MG (COLACE) CAP PO SCH (22:04)
[2021-12-09] VITALS (7 sets, daily range): BP systolic 89–104; BP diastolic 62–70
[2021-12-09 04:37] LABS: BASOPHILS % (AUTO) 0 % (0-10); EOSINOPHILS # (AUTO) 0.1 10^3/uL (0.0-0.3); EOSINOPHILS % (AUTO) 1 % (0-10); HEMATOCRIT 51 % (40-54); HEMOGLOBIN 17.4 g/dL (13.3-17.7); LYMPHOCYTES # (AUTO) 1.4 10^3/uL (1.0-4.0); LYMPHOCYTES % (AUTO) 15 % (12-44); MEAN CORPUSCULAR HEMOGLOBIN 32 pg (25-34); MEAN CORPUSCULAR HGB CONC 34 g/dL (32-36); MEAN CORPUSCULAR VOLUME 94 fL (80-99); MEAN PLATELET VOLUME 8.4 fL (9.0-12.2); MONOCYTES # (AUTO) 0.7 10^3/uL (0.0-1.0); MONOCYTES % (AUTO) 7 % (0-12); NEUTROPHILS # (AUTO) 7.5 10^3/uL (1.8-7.8); NEUTROPHILS % (AUTO) 77 % (42-75); PLATELET COUNT 206 10^3/uL (130-400); WHITE BLOOD COUNT 9.8 10^3/uL (4.3-11.0)
[2021-12-09 04:57] LABS: ALBUMIN 3.8 GM/DL (3.2-4.5)
[2021-12-09 04:58] LABS: POTASSIUM 4.2 MMOL/L (3.6-5.0)
[2021-12-09 04:59] LABS: CALCIUM 9.1 MG/DL (8.5-10.1)
[2021-12-09 05:00] LABS: TOTAL PROTEIN 6.6 GM/DL (6.4-8.2)
[2021-12-09 05:02] LABS: BILIRUBIN,TOTAL 0.6 MG/DL (0.1-1.0)
[2021-12-09 05:03] LABS: CREATININE SERUM 0.88 MG/DL (0.60-1.30)
[2021-12-09] MEDS: ENOXAPARIN 80 MG/0.8 ML (LOVENOX) SYR SC SCH (05:34)
[2021-12-09] MEDS ORDERED: HEParin (CATH LAB) 2,000 ML IV ONE (07:45)
[2021-12-09] MEDS ORDERED: LIDOCAINE 1% INJ 20 ML VIAL ONE (07:45)
[2021-12-09] MEDS ORDERED: fentaNYL INJ 100 MCG/2 ML AMP ONE (07:47)
[2021-12-09] MEDS ORDERED: NS IV 1000 ML 0 ML ONE (07:47)
[2021-12-09] MEDS ORDERED: MIDAZOLAM 5 MG/5 ML (VERSED) VIAL ONE (07:47)
[2021-12-09] MEDS: RT-ALBUTEROL SULF 2.5 MG/3 ML PRE-MIX VIAL INH SCH ×2 (07:50→19:32)
[2021-12-09] MEDS ORDERED: NS IV 1000 ML 1,000 ML ONE (07:51)
[2021-12-09] MEDS ORDERED: VERAPAMIL 5 MG/2 ML (CALAN) VIAL IV ONE (08:20)
[2021-12-09] MEDS ORDERED: NITRO DRIP 25000 MCG/D5W 250 ML IV ONE (08:21)
[2021-12-09] MEDS ORDERED: HEParin 1000 UNIT/ML (10ML VIAL) FOR BOLUS ONE (08:21)
[2021-12-09] MEDS ORDERED: CLOPIDOGREL 300 MG (PLAVIX) TABLET PO ONE (08:58)
[2021-12-09] MEDS ORDERED: ASPIRIN 325 MG (5 GR) TABLET ONE (08:58)
--- NOTE | 2021-12-09 09:03 | Conscious Sedation/ASA ---
Conscious Sedation Pre-Proced Time 08:00 ASA Score 3 For ASA 3 and 4: Consider anesthesia and medical clearance. Also, for patients with a history of failed moderate sedation consider anesthesia. Airway Lungs Heart ASA score ASA 1: a normal healthy patient ASA 2: a patient with a mild systemic disease (mid diabetes, controlled hypertension, obesity x ASA 3: a patient with a severe systemic disease that limits activity (angina, COPD, prior Myocardial infarction) ASA 4: a patient with an incapacitating disease that is a constant threat to life (CHF, renal failure) ASA 5: a moribund patient not expected to survive 24 hrs. (ruptured aneurysm) ASA 6: a declared brain- patient whose organs are being harvested. For emergent operations, add the letter E after the classification Mallampati Classification Grade 3 Sedation Plan Analgesia, Amnesia, Plan communicated to team members, Discussed options with patient/fam, Discussed risks with patient/fam The patient is an appropriate candidate to undergo the planned procedure, sedation, and anesthesia. The patient immediately re-assessed prior to indication. RAKESH FIELDS MD Dec 09, 2021 09:03
--- NOTE | 2021-12-09 09:03 | Consultation-Cardiology ---
HPI-Cardiology Cardiology Consultation Date of Consultation 12/09/21 Date of Admission Time Seen by Provider: 08:59 Indication: Chest pain HPI 56-year-old gentleman with history of coronary artery disease, hypertension and hyperlipidemia, patient started to have chest pain yesterday evening, came into the emergency room, no acute EKG changes, noted to have mild elevation in trop onin. He was feeling well. Had another episode of chest pain earlier this morning, troponin has increased to 7. On my evaluation he denied any active chest pain. No acute EKG changes. Home Medications & Allergies Allergies: Coded Allergies: Penicillins (Verified Allergy, Intermediate, Hives, 04/11/20) Home Medication List Reviewed: Yes OFH-Ewjqwy-Rtfwtb Hx Patient Social History Marital Status: Employed/Student: employed Smoking Status: Current Everyday Smoker Type Used: Cigarettes 2nd Hand Smoke Exposure: Yes Recent Hopitalizations: No Have you traveled recently?: No Alcohol Use?: Yes Past Medical History Discussed below Family Medical History Family Medical Hx Noncontributory Review of Systems-General Review of Systems Constitutional: see HPI EENTM: see HPI, no symptoms reported Respiratory: no symptoms reported, see HPI Cardiovascular: see HPI, chest pain; No edema, No Hx of Intervention, No palpitations, No syncope, No vascular heart diseas, No other Gastrointestinal: no symptoms reported, see HPI Genitourinary: no symptoms reported, see HPI Musculoskeletal: see HPI Skin: see HPI Psychiatric/Neurological: See HPI All Other Systems Reviewed Negative Unless Noted: Yes Reviewed Test Results Reviewed Test Results Lab Laboratory Tests Test 12/08/21 13:55 12/09/21 04:26 Range/Units White Blood Count 9.9 9.8 4.3-11.0 10^3/uL Red Blood Count 5.77 H 5.43 4.30-5.52 10^6/uL Hemoglobin 18.4 H 17.4 13.3-17.7 g/dL Hematocrit 55 H 51 40-54 % Mean Corpuscular Volume 95 94 80-99 fL Mean Corpuscular Hemoglobin 32 32 25-34 pg Mean Corpuscular Hemoglobin Concent 34 34 32-36 g/dL Red Cell Distribution Width 13.6 13.4 10.0-14.5 % Platelet Count 278 206 130-400 10^3/uL Mean Platelet Volume 8.3 L 8.4 L 9.0-12.2 fL Immature Granulocyte % (Auto) 0 0 % Neutrophils (%) (Auto) 73 77 H 42-75 % Lymphocytes (%) (Auto) 19 15 12-44 % Monocytes (%) (Auto) 6 7 0-12 % Eosinophils (%) (Auto) 1 1 0-10 % Basophils (%) (Auto) 0 0 0-10 % Neutrophils # (Auto) 7.2 7.5 1.8-7.8 10^3/uL Lymphocytes # (Auto) 1.9 1.4 1.0-4.0 10^3/uL Monocytes # (Auto) 0.6 0.7 0.0-1.0 10^3/uL Eosinophils # (Auto) 0.1 0.1 0.0-0.3 10^3/uL Basophils # (Auto) 0.0 0.0 0.0-0.1 10^3/uL Immature Granulocyte # (Auto) 0.0 0.0 0.0-0.1 10^3/uL D-Dimer 0.50 H 0.00-0.49 UG/ML Sodium Level 136 138 135-145 MMOL/L Potassium Level 4.4 4.2 3.6-5.0 MMOL/L Chloride Level 101 106 98-107 MMOL/L Carbon Dioxide Level 25 22 21-32 MMOL/L Anion Gap 10 10 5-14 MMOL/L Blood Urea Nitrogen 15 16 7-18 MG/DL Creatinine 0.98 0.88 0.60-1.30 MG/DL Estimat Glomerular Filtration Rate 79 89 BUN/Creatinine Ratio 15 18 Glucose Level 143 H 98 70-105 MG/DL Calcium Level 9.6 9.1 8.5-10.1 MG/DL Corrected Calcium 9.3 8.5-10.1 MG/DL Total Bilirubin 0.4 0.6 0.1-1.0 MG/DL Aspartate Amino Transf (AST/SGOT) 20 43 H 5-34 U/L Alanine Aminotransferase (ALT/SGPT) 13 19 0-55 U/L Alkaline Phosphatase 138 H 114 40-136 U/L Troponin I 0.71 *H 7.211 *H <0.028 NG/ML Total Protein 7.1 6.6 6.4-8.2 GM/DL Albumin 4.2 3.8 3.2-4.5 GM/DL Triglycerides Level 139 <150 MG/DL Cholesterol Level 155 < 200 MG/DL LDL Cholesterol Direct 107 1-129 MG/DL VLDL Cholesterol 28 5-40 MG/DL HDL Cholesterol 32 L 40-60 MG/DL Physical Exam Physical Exam Vital Signs Vital Signs - First Documented 12/08/21 12/08/21 13:50 20:00 Temp 36.7 Pulse 71 Resp 13 B/P (MAP) 126/83 (97) Pulse Ox 94 O2 Delivery Room Air O2 Flow Rate 1.00 FiO2 92 Capillary Refill : Less Than 3 Seconds Height, Weight, BMI Height: 5'11.00" Weight: 156lbs. oz. 70.866768wo; 22.60 BMI Method:Stated General Appearance: No Apparent Distress, Anxious Eyes: Bilateral Eye Normal Inspection, Bilateral Eye PERRL, Bilateral Eye EOMI HEENT: PERRL/EOMI, Normal ENT Inspection, Pharynx Normal Neck: Full Range of Motion, Normal Inspection, Non Tender, Supple Respiratory: Chest Non Tender, Decreased Breath Sounds Cardiovascular: Regular Rate, Rhythm, No Edema Gastrointestinal: Normal Bowel Sounds, Non Tender, Soft Back: Normal Inspection, No CVA Tenderness, No Vertebral Tenderness Extremity: Normal Capillary Refill, Normal Inspection, Normal Range of Motion, Non Tender, No Calf Tenderness, No Pedal Edema Neurologic/Psychiatric: Alert, Oriented x3, No Motor/Sensory Deficits, retirement officer II- XII Norm as Tested Skin: Normal Color Lymphatic: No Adenopathy A/P-Cardiology Admission Diagnosis Non-ST elevation myocardial infarction Coronary artery disease Hypertension Hyperlipidemia Assessment/Plan Non-ST elevation myocardial infarction, history of coronary artery disease, cardiac catheterization was carried out showing severe mid RCA stenosis, successful stenting with excellent results. Coronary artery disease, known to have 3 x 12 stent in the circumflex artery, had a cardiac catheterization with Dr. Ramey in March 2020 showing patent stent with mild disease otherwise. Cardiac catheterization was carried out today on December 09, 2021 showing patent stent in the circumflex artery, slow flow in the LAD with mild to moderate disease nonobstructive disease. Severe stenosis in the mid right coronary artery successful deployment of wojciech point stent 3 x 23 expanded to 3.4 mm with excellent results Hypertension, restart home medication monitor blood pressure Hyperlipidemia, monitor lipids History of permanent pacemaker was implanted in March [address] Milton Kirby, advised on smoking cessation Clinical Quality Measures AMI/AHF: ASA po Prior to arrival: Yes RAKESH FIELDS MD Dec 09, 2021 09:02
--- NOTE | 2021-12-09 09:11 | Cardiac Cath Report ---
Cardiac Cath Report Physician (s)/Vice President Corporate Communications (s) Physician RAKESH FIELDS MD Pre-Procedure Diagnosis Pre-Procedure Diagnosis: Non-ST elevation myocardial infarction Post-Procedure Note Procedure Start Date: Dec 09, 2021 Name of Procedure: Left heart catheterization Left ventriculogram Balloon angioplasty and stenting of the right coronary artery Findings/Procedure Note PROCEDURE NOTE: 56-year-old gentleman with known history of coronary artery disease and stent to the circumflex artery in 2016, admitted with non-ST elevation myocardial infarction, cardiac catheterization was advised. After explaining the procedure to the patient, all pros and cons were explained, all questions were answered. The patient signed the consent and then he was placed on the cardiac catheterization laboratory. Groin was prepped SL fashion local anesthesia was used. Sheath placed in the right radial artery, Alger catheter was advanced to the left ventricular cavity, pressure was measured, left ventriculogram was done, pullback LV to aorta was done. Engage the right and left coronary system and angiogram was done. Patient has severe mid right coronary artery stenosis/subtotal occlusion, given a total of 6000 units of heparin, FIR guide was advanced to the right coronary artery, BMW wire was advanced and parked distally, predilatation with 3 x 20 balloon was done then I used skypoint 3 x 23 positioned carefully then deployed postdilated with noncompliant balloon up to 3.4 mm using NC trek 3.5 and going up to 10 wang only. At the end of the procedure the sheath was removed. Vascular band was used FINDINGS: Hemodynamics LV 81/7, end-diastolic pressure of 7 Aorta 73/57 mean of 53 ANATOMY: Left Main is free of obstructive disease Left Anterior Descending has mild to moderate disease slow flow in the LAD nonobstructive disease Left Circumflex has patent stent proximally otherwise moderate disease in the obtuse marginal branch, nonobstructive disease Right Coronary Artery has severe stenosis at the midportion, successful balloon angioplasty and stenting using skypoint stent 3 x 23 expanded to 3.4 mm with excellent results LV Gram was done showing normal left ventricular size, normal contractility, ejection fraction 50% CONCLUSION: 1. Severe stenosis in the mid right coronary artery successful balloon angioplasty and stenting using skypoint stent 3 x 23 mm expanded to 3.4 mm with excellent results 2. Patent stent in the proximal circumflex artery, moderate stenosis in the obtuse marginal branch 3. Mild to moderate stenosis in the LAD with small vessel disease and slow flow in the LAD 4. Normal left ventricular size and systolic function estimated ejection fraction 50% DISCUSSION AND RECOMMENDATION: Patient was loaded again with aspirin and Plavix, continue Lipitor 80 mg daily, advised on smoking cessation Anesthesia Type: Conscious Sedation Estimated blood loss (mL): 15 ml Contrast Amount: 84 ml Total Radiation Dose: 526 mGy Post-Procedure Diagnosis Post-operative diagnosis: Non-ST elevation myocardial infarction Coronary artery disease Hypertension Hyperlipidemia RAKESH FIELDS MD Dec 09, 2021 09:10
[2021-12-09] MEDS ORDERED: PATIENT MAY USE OWN MEDS, ALL PO SCH (09:15)
[2021-12-09] MEDS: DOCUSATE SODIUM 100 MG (COLACE) CAP PO SCH ×2 (09:18→21:23)
[2021-12-09] MEDS: NS IV 1000 ML 1,000 ML IV SCH (09:26)
[2021-12-09] MEDS: ASPIRIN 81 MG CHEW (CHILDREN'S ASA) PO SCH (09:27)
[2021-12-09] MEDS: NICOTINE 21 MG (NICODERM) PATCH TD SCH (09:28)
[2021-12-09] MEDS ORDERED: FLUT16SP22 NSEACH (10:29)
[2021-12-09] MEDS ORDERED: ASPI-1238 PO (10:29)
[2021-12-09] MEDS ORDERED: METO50TA7 PO (10:29)
[2021-12-09] MEDS ORDERED: CLOP75TA28 PO (10:29)
--- NOTE | 2021-12-09 10:45 | History & Physical-Hospitalist ---
JEANNINE DEJESUS 12/09/21 1045: History of Present Illness HPI/Chief Complaint The patient is a 56 YO male with a Hx of coronary artery disease, hypertension and hyperlipidemia who presented to the ED yesterday evening d/t chest pain. There were no acute EKG changes at that time, and he had a mild elevation of his troponin. The patient this morning had a troponin that increased to 7, and underwent cardiac catheterization with stent placement. This morning the patient is feeling well. He reports only very little chest pain. He has no other complaints. Date Seen 12/09/21 Time Seen by a Provider: 09:30 Attending Physician Chai Rosario MD PCP Lizzie Steele Aprn Referring Physician Date of Admission Dec 08, 2021 at 16:25 Home Medications & Allergies Home Medications Reviewed patient Home Medication Reconciliation performed by pharmacy medication reconciliations emissions testing technician and/or nursing. Patients Allergies have been reviewed. Allergies Allergies Coded Allergies Penicillins (Verified Allergy, Intermediate, Hives, 04/11/20) Past Cgixvus-Jipegg-Yogneq Hx Patient Social History Marrital Status: Employed/Student: employed Tobacco Use?: Yes Tobacco type used: Cigarettes Smoking Status: Current Everyday Smoker Smokeless Tobacco Frequency: Never a User Use of E-Cig and/or Vaping dev: No Substance use?: No Alcohol Use?: Yes Alcohol Frequency: Several times a month Pt feels they are or have been: No Immunizations Up To Date First/Initial COVID19 Vaccinat: Not Currently Vaccinated Second COVID19 Vaccination Navdeep: Not Currently Vaccinated Seasonal Allergies Seasonal Allergies: No Current Status Advance Directives: No Communicates: Verbally Primary Language: Malagasy Preferred Spoken Language: Malagasy Is interpretation needed?: No Sensory deficits: Vision impairment Implanted or Applied Medical D: Pacemaker Past Medical History High Cholesterol Review of Systems Constitutional: No chills, No diaphoresis, No fever EENTM: No blurred vision, No double vision Respiratory: No cough, No short of breath Cardiovascular: chest pain ("very little"); No palpitations Gastrointestinal: No abdominal pain, No constipation, No diarrhea Musculoskeletal: no symptoms reported Psychiatric/Neurological: Denies Anxiety, Denies Depressed, Denies Emotional Problems Physical Exam Physical Exam Vital Signs Vital Signs - First Documented 12/08/21 12/08/21 13:50 20:00 Temp 36.7 Pulse 71 Resp 13 B/P (MAP) 126/83 (97) Pulse Ox 94 O2 Delivery Room Air O2 Flow Rate 1.00 FiO2 92 Capillary Refill : Less Than 3 Seconds Height, Weight, BMI Height: 5'11.00" Weight: 156lbs. oz. 70.473103cy; 22.60 BMI Method:Stated General Appearance: No Apparent Distress, WD/WN Eyes: Bilateral Eye Normal Inspection, Bilateral Eye PERRL, Bilateral Eye EOMI HEENT: PERRL/EOMI, Pharynx Normal, Moist Mucous Membranes Respiratory: Chest Non Tender, Lungs Clear, Normal Breath Sounds, No Accessory Muscle Use, No Respiratory Distress Cardiovascular: Regular Rate, Rhythm, No Edema, No Murmur, Normal Peripheral Pulses Gastrointestinal: Normal Bowel Sounds, No Organomegaly, No Pulsatile Mass, Non Tender, Soft Extremity: No Calf Tenderness, No Pedal Edema Neurologic/Psychiatric: Alert, Oriented x3, Normal Mood/Affect Skin: Warm/Dry Results Results/Procedures Labs Laboratory Tests 12/08/21 13:55 12/09/21 04:26 Patient resulted labs reviewed. Assessment/Plan Assessment and Plan NSTEMI Conary artery disease hypertension hyperlipidemia pacemaker tobacco use disorder NSTEMI conary artery disease S/P stent placed today. Continue to follow troponin. Continue Plavix, Asprin and Lipitor therapy. Hypertension Continue home meds Hyperlipidemia Follow labs. Pacemaker no acute management at this time Tobacco use disorder Smoking cessation Clinical Quality Measures AMI/AHF: ASA po Prior to arrival: Yes CHAI ROSARIO MD 12/09/21 1707: Assessment/Plan Admission Diagnosis NSTEMI Admission Status: Inpatient Order (span 2 midnights) Reason for Inpatient Admission: NSTEMI needs cath lab nurse for possible intervention Supervisory-Addendum Brief Verification & Attestation Participated in pt care: history, physical Personally performed: exam, history Care discussed with: Medical Student Procedures: n/a Verification and Attestation of Medical Student E/M Service A medical student performed and documented this service in my presence. I reviewed and verified all information documented by the medical student and made modifications to such information, when appropriate. I personally performed the physical exam and medical decision making. Chai Rosario, Dec 09, 2021,17:05 JEANNINE DEJESUS Dec 09, 2021 10:45 CHAI ROSARIO MD Dec 09, 2021 17:07
--- NOTE | 2021-12-09 17:05 | Progress Note ---
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 States that he is feeling much better. Denies any chest pain or shortness of breath. Review of Systems Pulmonary: No Dyspnea, No Cough Cardiovascular: No: Chest Pain, Palpitations, Edema Gastrointestinal: No: Nausea, Vomiting, Abdominal Pain, Diarrhea, Constipation Genitourinary: No Dysuria, No Frequency Neurological: No: Weakness, Numbness, Incoordination, Confusion Objective Exam Last Set of Vital Signs Vital Signs Date Time Temp Pulse Resp B/P (MAP) Pulse Ox O2 Delivery O2 Flow Rate FiO2 12/09/21 16:00 37.0 94 17 104/69 (81) 92 Room Air 12/09/21 08:00 1.00 12/09/21 08:00 93 Capillary Refill : Less Than 3 Seconds I&O Intake and Output 12/09/21 00:00 Intake Total 0 ml Output Total 100 ml Balance -100 ml Intake Oral 0 ml Output Urine Total 100 ml Daily Weight Change No General: Alert, Oriented X3, Cooperative, No Acute Distress Lungs: Clear to Auscultation, Normal Air Movement Heart: Regular Rate, No Murmurs Abdomen: Normal Bowel Sounds, Soft, No Tenderness, No Masses Extremities: No Edema, No Tenderness/Swelling Skin: No Rashes Neuro: Normal Speech, Strength at 5/5 X4 Ext, Cranial Nerves 3-12 NL Psych/Mental Status: Mental Status NL, Mood NL Results/Procedures Lab Laboratory Tests 12/09/21 04:26: White Blood Count 9.8, Red Blood Count 5.43, Hemoglobin 17.4, Hematocrit 51, Mean Corpuscular Volume 94, Mean Corpuscular Hemoglobin 32, Mean Corpuscular Hemoglobin Concent 34, Red Cell Distribution Width 13.4, Platelet Count 206, Mean Platelet Volume 8.4L, Immature Granulocyte % (Auto) 0, Neutrophils (%) (Auto) 77H, Lymphocytes (%) (Auto) 15, Monocytes (%) (Auto) 7, Eosinophils (%) (Auto) 1, Basophils (%) (Auto) 0, Neutrophils # (Auto) 7.5, Lymphocytes # (Auto) 1.4, Monocytes # (Auto) 0.7, Eosinophils # (Auto) 0.1, Basophils # (Auto) 0.0, Immature Granulocyte # (Auto) 0.0, Sodium Level 138, Potassium Level 4.2, Chloride Level 106, Carbon Dioxide Level 22, Anion Gap 10, Blood Urea Nitrogen 16, Creatinine 0.88, Estimat Glomerular Filtration Rate 89, BUN/Creatinine Ratio 18, Glucose Level 98, Calcium Level 9.1, Corrected Calcium 9.3, Total Bilirubin 0.6, Aspartate Amino Transf (AST/SGOT) 43H, Alanine Aminotransferase (ALT/SGPT) 19, Alkaline Phosphatase 114, Troponin I 7.211*H, Total Protein 6.6, Albumin 3.8, Triglycerides Level 139, Cholesterol Level 155, LDL Cholesterol Direct 107, VLDL Cholesterol 28, HDL Cholesterol 32L Assessment/Plan Assessment/Plan (1) Non-STEMI (non-ST elevated myocardial infarction) Status: Acute Assessment & Plan: 12/09: 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, 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, possible home in AM (2) CAD (coronary artery disease) Status: Acute Qualifiers: Qualified Codes: I25.10 - Atherosclerotic heart disease of [place] coronary artery without angina pectoris (3) HLD (hyperlipidemia) Status: Chronic Assessment & Plan: 12/09: Statin Qualifiers: Qualified Codes: E78.5 - Hyperlipidemia, unspecified (4) Hypertension Status: Chronic Assessment & Plan: 12/09: Restart home meds Qualifiers: Qualified Codes: I10 - Essential (primary) hypertension (5) Tobacco abuse Status: Chronic Assessment & Plan: - Discussed the importance of tobacco cessation Clinical Quality Measures AMI/AHF: ASA po Prior to arrival: Yes CHAI LOGAN MD Dec 09, 2021 17:05
[2021-12-10 00:31] VITALS: BP 105/62
[2021-12-10 04:05] VITALS: BP 123/84
[2021-12-10] MEDS: NS IV 1000 ML 1,000 ML IV SCH (05:15)
--- NOTE | 2021-12-10 05:21 | Discharge Inst-Post CATH ---
Discharge Inst-CATH/EP Problems Reviewed?: Yes Post Cardiac Cath/EP D/C Inst Follow Up/Plan Appointment with Dr Rose in 2-4 weeks <b>CARDIAC CATH/EP PROCEDURE DISCHARGE INSTRUCTIONS</b> ACTIVITY * Go Home directly and rest. * Limit activity of the leg (or wrist if it was used) for 7 days including aerobics, swimming, jogging, bicycling, etc. * Restrict stair-climbing for 7 days if possible, if not, climb up with your non-cath leg, then bring together on the same step. * Avoid lifting, pushing, pulling or excessive movement of the affected extremity for 7 days. * Customary sexual activity may be resumed after 2 days-use caution not to use a position that strains or causes pain to the affected extremity. * No driving for 24 hours. * NO SMOKING. * Avoid straining for bowel movements for 7 days. * Gentle walking on level ground is allowed. * Returning to work will depend on the type of procedure and the results. Your doctor will discuss this with you. CALL YOUR DOCTOR FOR ANY OF THE FOLLOWING: *If bleeding from the puncture site occurs- Apply gentle pressure to site with clean cloth and call your doctor or EMS. * If a knot or lump forms under the skin, increases in size, or causes pain. * If bruising appears to be worsening or moving further down your leg instead of disappearing. * Temperature above 101 F. CARE OF YOUR GROIN INCISION; * Bruising or purple discoloration of the skin near the puncture site is common. * You may shower only, no bathtub bathing for 5 days. Be careful to avoid slipping as your leg may feel stiff. * If a closure device was used on your femoral artery, please see the attached guide regarding care of the device and your leg. * Leave dressing on FOR 24 hours. CARE OF YOUR WRIST INCISION; * Bruising or purple discoloration of the skin near the puncture site is common. * You may shower. * DO NOT submerge wrist. * Leave dressing on FOR 24 hours. RAKESH FIELDS MD Dec 10, 2021 05:21
[2021-12-10 06:03] LABS: BASOPHILS % (AUTO) 0 % (0-10); EOSINOPHILS % (AUTO) 0 % (0-10); HEMATOCRIT 49 % (40-54); HEMOGLOBIN 16.7 g/dL (13.3-17.7); LYMPHOCYTES % (AUTO) 20 % (12-44); MEAN CORPUSCULAR HEMOGLOBIN 32 pg (25-34); MEAN CORPUSCULAR HGB CONC 34 g/dL (32-36); MEAN CORPUSCULAR VOLUME 94 fL (80-99); MEAN PLATELET VOLUME 8.6 fL (9.0-12.2); MONOCYTES # (AUTO) 0.8 10^3/uL (0.0-1.0); MONOCYTES % (AUTO) 16 % (0-12); NEUTROPHILS # (AUTO) 3.2 10^3/uL (1.8-7.8); NEUTROPHILS % (AUTO) 62 % (42-75); PLATELET COUNT 182 10^3/uL (130-400); WHITE BLOOD COUNT 5.2 10^3/uL (4.3-11.0)
[2021-12-10 06:13] LABS: ALBUMIN 3.6 GM/DL (3.2-4.5); POTASSIUM 3.8 MMOL/L (3.6-5.0)
[2021-12-10 06:15] LABS: CALCIUM 8.6 MG/DL (8.5-10.1)
[2021-12-10 06:16] LABS: TOTAL PROTEIN 6.3 GM/DL (6.4-8.2)
[2021-12-10 06:18] LABS: BILIRUBIN,TOTAL 0.3 MG/DL (0.1-1.0)
[2021-12-10 06:19] LABS: CREATININE SERUM 0.82 MG/DL (0.60-1.30)
[2021-12-10 08:00] VITALS: BP 102/66
[2021-12-10] MEDS: RT-ALBUTEROL SULF 2.5 MG/3 ML PRE-MIX VIAL INH SCH (08:22)
--- NOTE | 2021-12-10 08:31 | Cardiology Progress Note ---
Subjective Date Seen by Provider: Dec 10, 2021 Time Seen by Provider: 08:30 Subjective/Events-last exam Patient is laying down in bed, denied any chest pain. Review of Systems General: No Chills, No Night Sweats, No Fatigue, No Malaise, No Appetite, No Other HEENT: No Head Aches, No Visual Changes, No Eye Pain, No Ear Pain, No Dysphasia, No Sinus Congestion, No Post Nasal Drip, No Sore Throat, No Other Pulmonary: No Dyspnea, No Cough, No Pleuritic Chest Pain, No Other Cardiovascular: No: Chest Pain, Palpitations, Orthopnea, Paroxysmal Noc. Dyspnea, Edema, Lt Headedness, Other Objective-Cardiology Exam Last Set of Vital Signs Vital Signs 12/09/21 12/10/21 12/10/21 12/10/21 20:15 04:05 07:00 08:22 Temp 36.9 Pulse 95 Resp 20 B/P (MAP) 123/84 (97) Pulse Ox 91 O2 Delivery Room Air O2 Flow Rate 1.00 FiO2 93 I&O Intake and Output 12/10/21 00:00 Intake Total 690 ml Output Total 950 ml Balance -260 ml Intake Oral 690 ml Output Urine Total 950 ml General: Alert, Oriented X3, Cooperative, No Acute Distress HEENT: Atraumatic, PERRLA Neck: Supple, No JVD Lungs: Clear to Auscultation, Normal Air Movement Heart: Regular Rate, Normal S1, Normal S2, No Murmurs Abdomen: Normal Bowel Sounds, Soft, No Tenderness, No Masses Extremities: No Clubbing, No Cyanosis, No Edema, No Tenderness/Swelling Skin: No Rashes Neuro: Normal Speech, Strength at 5/5 X4 Ext, Cranial Nerves 3-12 NL Psych/Mental Status: Mental Status NL, Mood NL Results Lab Laboratory Tests 12/10/21 05:27 A/P-Cardiology Admission Diagnosis Non-ST elevation myocardial infarction Coronary artery disease Hypertension Hyperlipidemia Assessment/Plan Non-ST elevation myocardial infarction, history of coronary artery disease, cardiac catheterization was carried out showing severe mid RCA stenosis, successful stenting with excellent results. Coronary artery disease, known to have 3 x 12 stent in the circumflex artery, had a cardiac catheterization with Dr. Ramey in March 2020 showing patent stent with mild disease otherwise. Cardiac catheterization was carried out today on December 09, 2021 showing patent stent in the circumflex artery, slow flow in the LAD with mild to moderate disease nonobstructive disease. Severe stenosis in the mid right coronary artery successful deployment of skypoint stent 3 x 23 expanded to 3.4 mm with excellent results Hypertension, restart home medication monitor blood pressure Hyperlipidemia, monitor lipids History of permanent pacemaker was implanted in March [address] Rose Tobaccoism, advised on smoking cessation Okay for discharge from cardiology standpoint, follow-up with Dr. Rose in 2 to 4 weeks. Patient was educated on smoking cessation and compliance with medication RAKESH FIELDS MD Dec 10, 2021 08:31
[2021-12-10] MEDS ORDERED: CLOPIDOGREL 75 MG (PLAVIX) TABLET PO SCH (09:00)
[2021-12-10] MEDS ORDERED: ASPIRIN E.C. 81 MG (ECOTRIN) TAB PO SCH (09:00)
[2021-12-10 09:04] VITALS: BP 102/66
[2021-12-10] MEDS: ASPIRIN 81 MG CHEW (CHILDREN'S ASA) PO SCH (09:39)
[2021-12-10] MEDS: NICOTINE 21 MG (NICODERM) PATCH TD SCH (09:39)
[2021-12-10] MEDS: DOCUSATE SODIUM 100 MG (COLACE) CAP PO SCH (09:39)
--- NOTE | 2021-12-10 10:09 | Discharge Summary ---
Diagnosis/Chief Complaint Date of Admission Dec 08, 2021 at 16:25 Date of Discharge 12/10/21 Admission Diagnosis Admission Diagnosis See problem list Discharge Diagnosis See below Problems/Diagnosis: (1) Non-STEMI (non-ST elevated myocardial infarction) Assessment & Plan: 12/09: cath lab today with intervention, 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, possible home in AM 12/10: d/c today, f.u with cardiology in 1-2 weeks Status: Acute (2) CAD (coronary artery disease) Qualifiers: Qualified Codes: I25.10 - Atherosclerotic heart disease of [place] coronary artery without angina pectoris Status: Acute (3) HLD (hyperlipidemia) Assessment & Plan: 12/09: Statin Qualifiers: Qualified Codes: E78.5 - Hyperlipidemia, unspecified Status: Chronic (4) Hypertension Assessment & Plan: 12/09: Restart home meds Qualifiers: Qualified Codes: I10 - Essential (primary) hypertension Status: Chronic (5) Tobacco abuse Assessment & Plan: - Discussed the importance of tobacco cessation Status: Chronic Discharge Summary-Simple/Stand Procedures Cath with intervention 12/[address] Szymanski Cardiology Discharge Physical Examination Allergies: Coded Allergies: Penicillins (Verified Allergy, Intermediate, Hives, 04/11/20) Vitals & I&Os Vital Sign - Last 12Hours Date Time Temp Pulse Resp B/P (MAP) Pulse Ox O2 Delivery O2 Flow Rate FiO2 12/10/21 09:04 37.0 96 18 102/66 (78) 94 Room Air 12/09/21 20:15 1.00 93 Intake and Output 12/10/21 00:00 Intake Total 690 ml Output Total 550 ml Balance 140 ml General Appearance: Alert, Oriented X3, Cooperative, No Acute Distress HEENT: Mucous Memb Moist/[place] Respiratory: Clear to Auscultation, Normal Air Movement Cardiovascular: Regular Rate, No Murmurs Abdominal: Normal Bowel Sounds, Soft, No Tenderness, No Masses Extremities: No Edema, No Tenderness/Swelling Skin: No Rashes Neuro: Normal Speech, Strength at 5/5 X4 Ext, Cranial Nerves 3-12 NL Psych/Mental Status: Mental Status NL, Mood NL Hospital Course Was the Problem List Reviewed?: Yes See final discharge diagnosis. 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 He then had stents placed. Resolution of symptoms. Will have close followup with cardiology and PCP. Discharge Condition at discharge stable Instructions to patient/family Please see electronic discharge instructions given to patient. Discharge Medications Reviewed and agree with Discharge Medication list on patient's Discharge Instruction sheet Clinical Quality Measures AMI/AHF: ASA po Prior to arrival: Yes CHAI LOGAN MD Dec 10, 2021 10:09
--- NOTE | 2021-12-10 10:10 | Discharge Summary ---
Discharge [facility] Reconcile Patient Problems Problems Reviewed?: Yes Discharge Medications New, Converted or Re-Newed RX: Transmitted to Pharmacy Continued Medications: Aspirin (Aspirin EC) 81 Mg Tablet.dr 81 MG PO HS, TAB Atorvastatin Calcium (Atorvastatin Calcium) 80 Mg Tablet 80 MG PO HS, TAB Clopidogrel Bisulfate (Clopidogrel) 75 Mg Tablet 75 MG PO HS, TAB Fluticasone Propionate (Fluticasone Propionate) 16 Gm [place].susp 1 SPRAY NSEACH DAILY, EA Metoprolol Succinate (Metoprolol Succinate) 50 Mg Tab.er.24h 50 MG PO DAILY, TAB Patient Instructions Goal/Follow Up Appt: F.u with PCP 1 week Make sure to f.u with Cardiology Activity & Diet Discharge Diet: Cardiac Diet Activity as Tolerated: Yes CHAI LOGAN MD Dec 10, 2021 10:10
[2021-12-10 11:00] VITALS: BP 102/66
== END 2021-12-10 11:35 | disposition home or self-care (01) | DRG 247 ==
LOC: EDUNIT# 13:48 → ER FS 13:49 → CSD 16:25 → 4TH 12-09 20:20
PROVIDERS: ADMIT Internal Medicine; ATTEND Family Medicine
PROC: 027034Z Dilation of Coronary Artery, One Artery with Drug-eluting Intraluminal Device, Percutaneous Approach (ICD-10-PCS; principal; 2021-12-09)
PROC: 4A023N7 Measurement of Cardiac Sampling and Pressure, Left Heart, Percutaneous Approach (ICD-10-PCS; 2021-12-09)
PROC: B2111ZZ Fluoroscopy of Multiple Coronary Arteries using Low Osmolar Contrast (ICD-10-PCS; 2021-12-09)
PROC: B2151ZZ Fluoroscopy of Left Heart using Low Osmolar Contrast (ICD-10-PCS; 2021-12-09)
DX: I21.4 Non-ST elevation (NSTEMI) myocardial infarction (principal); I25.10 Atherosclerotic heart disease of native coronary artery without angina pectoris; I10 Essential (primary) hypertension; F17.210 Nicotine dependence, cigarettes, uncomplicated; E78.5 Hyperlipidemia, unspecified; Z95.0 Presence of cardiac pacemaker; Z79.82 Long term (current) use of aspirin; Z79.899 Other long term (current) drug therapy
CPT/HCPCS: 36415; 71045; 80053; 80061; 84484; 85025; 85347; 85379; 93005; 93458; 94640; 94760

== ENCOUNTER 2021-12-27 15:12 | Emergency (ER) | payer BC ==
[~2021-12-27 15:12] MED LIST changes: +ASPI-1238 PO; +CLOP75TA28 PO; +FLUT16SP22 NSEACH; +METO50TA7 PO
--- NOTE | 2021-12-27 15:17 | ED Chest Pain ---
General Chief Complaint: Chest Pain Stated Complaint: CHEST PAIN History of Present Illness Date Seen by Provider: Dec 27, 2021 Time Seen by Provider: 15:17 Initial Comments 56-year-old male presents with some left-sided chest pain. Reports more pain in his left shoulder. Feels like it can behind his pacemaker. Patient reports that it started yesterday. He reports it was much worse yesterday but he still having some pain today. Patient reports couple weeks ago he had a heart attack and had stents placed. Patient denies shortness of breath. He denies radiation of the pain. He denies any fever, chills, cough. Allergies and Home Medications Allergies Coded Allergies: Penicillins (Verified Allergy, Intermediate, Hives, 04/11/20) Patient Home Medication List Home Medication List Reviewed: Yes Aspirin (Aspirin EC) 81 Mg Tablet.dr, 81 MG PO HS, (Reported) Entered as Reported by: ALIYA SHEPHERD on 12/09/21 1029 Atorvastatin Calcium (Atorvastatin Calcium) 80 Mg Tablet, 80 MG PO HS, ( Reported) Entered as Reported by: ARA AIKEN on 04/11/20 1313 Clopidogrel Bisulfate (Clopidogrel) 75 Mg Tablet, 75 MG PO HS, (Reported) Entered as Reported by: ALIYA SHEPHERD on 12/09/21 1029 Fluticasone Propionate (Fluticasone Propionate) 16 Gm [place].susp, 1 SPRAY NSEACH DAILY, (Reported) Entered as Reported by: ALIYA SHEPHERD on 12/09/21 1029 Metoprolol Succinate (Metoprolol Succinate) 50 Mg Tab.er.24h, 50 MG PO DAILY, (Reported) Entered as Reported by: ALIYA SHEPHERD on 12/09/21 1029 Review of Systems Review of Systems Constitutional: No chills, No fever Respiratory: Denies Cough Cardiovascular: Chest Pain; Denies Edema, Denies Lightheadedness, Denies Palpitations Gastrointestinal: Denies Abdominal Pain, Denies Nausea, Denies Vomiting Musculoskeletal: see HPI Skin: no symptoms reported Psychiatric/Neurological: No Symptoms Reported Endocrine: No Symptoms Reported Hematologic/Lymphatic: No Symptoms Reported Past Tbjzuim-Mtjeqb-Pszipn Hx Immunizations Up To Date First/Initial COVID19 Vaccinat: Not Currently Vaccinated Second COVID19 Vaccination Navdeep: Not Currently Vaccinated Third COVID19 Vaccination Date: Not Currently Vaccinated Seasonal Allergies Seasonal Allergies: No Past Medical History Surgery/Hospitalization HX: HTN; High Cholesterol; Pacemaker Surgeries: Yes (cardiac stent placement, [employer]) Respiratory: No Cardiac: Yes (stent placement ) High Cholesterol Neurological: No Genitourinary: No Gastrointestinal: No Musculoskeletal: Yes (back injury in high school) Endocrine: No HEENT: No Cancer: No Psychosocial: No Integumentary: No Physical Exam Vital Signs Vital Signs - First Documented 12/27/21 15:25 Temp 36.7 Pulse 86 B/P (MAP) 125/72 (89) O2 Delivery Room Air Capillary Refill : Height, Weight, BMI Height: 5'11.00" Weight: 156lbs. oz. 70.804407pe; 22.60 BMI Method:Stated General Appearance: No Apparent Distress, WD/WN Respiratory: Lungs Clear, Normal Breath Sounds Cardiovascular: Regular Rate, Rhythm, No Edema Gastrointestinal: Non Tender, Soft Extremity: Normal Capillary Refill, Normal Range of Motion Neurologic/Psychiatric: Alert, Oriented x3, No Motor/Sensory Deficits Skin: Normal Color, Warm/Dry Progress/Results/Core Measures Results/Orders Lab Results Laboratory Tests Test 12/27/21 14:20 Range/Units White Blood Count 9.6 4.3-11.0 10^3/uL Red Blood Count 5.46 4.30-5.52 10^6/uL Hemoglobin 17.2 13.3-17.7 g/dL Hematocrit 52 40-54 % Mean Corpuscular Volume 95 80-99 fL Mean Corpuscular Hemoglobin 32 25-34 pg Mean Corpuscular Hemoglobin Concent 33 32-36 g/dL Red Cell Distribution Width 13.5 10.0-14.5 % Platelet Count 231 130-400 10^3/uL Mean Platelet Volume 8.6 L 9.0-12.2 fL Neutrophils (%) (Auto) 67 42-75 % Lymphocytes (%) (Auto) 23 12-44 % Monocytes (%) (Auto) 8 0-12 % Eosinophils (%) (Auto) 2 0-10 % Basophils (%) (Auto) 0 0-10 % Neutrophils # (Auto) 6.4 1.8-7.8 X 10^3 Lymphocytes # (Auto) 2.2 1.0-4.0 X 10^3 Monocytes # (Auto) 0.7 0.0-1.0 X 10^3 Eosinophils # (Auto) 0.2 0.0-0.3 10^3/uL Basophils # (Auto) 0.0 0.0-0.1 10^3/uL Prothrombin Time 12.8 12.2-14.7 SEC INR Comment 0.9 0.8-1.4 Activated Partial Thromboplast Time 27 24-35 SEC Sodium Level 140 135-145 MMOL/L Potassium Level 3.7 3.6-5.0 MMOL/L Chloride Level 101 98-107 MMOL/L Carbon Dioxide Level 24 21-32 MMOL/L Anion Gap 15 H 5-14 MMOL/L Blood Urea Nitrogen 14 7-18 MG/DL Creatinine 0.85 0.60-1.30 MG/DL Estimat Glomerular Filtration Rate 101 BUN/Creatinine Ratio 16 Glucose Level 125 H 70-105 MG/DL Calcium Level 9.2 8.5-10.1 MG/DL Corrected Calcium 9.4 8.5-10.1 MG/DL Magnesium Level 2.0 1.6-2.4 MG/DL Total Bilirubin 0.3 0.1-1.0 MG/DL Aspartate Amino Transf (AST/SGOT) 12 5-34 U/L Alanine Aminotransferase (ALT/SGPT) 11 0-55 U/L Alkaline Phosphatase 122 40-136 U/L Myoglobin 28.1 10.0-92.0 NG/ML Troponin I < 0.30 <0.30 NG/ML Total Protein 7.0 6.4-8.2 GM/DL Albumin 3.8 3.2-4.5 GM/DL My Orders Orders - U[facility],RAYRAY L DO Cbc With Automated Diff (12/27/21 15:23) Magnesium (12/27/21 15:23) Chest 1 View Ap/Pa Only (12/27/21 15:23) Ekg Tracing (12/27/21 15:23) Comprehensive Metabolic Panel (12/27/21 15:23) Myoglobin Serum (12/27/21 15:23) Protime With Inr (12/27/21 15:23) Partial Thromboplastin Time (12/27/21 15:23) Monitor-Rhythm Ecg Trace Only (12/27/21 15:23) Aspirin Chewable Tablet (Baby Aspirin Ch (12/27/21 15:30) Ed Iv/Invasive Line Start (12/27/21 15:23) Troponin I Fs (12/27/21 15:23) Medications Given in ED Current Medications Medications Dose Ordered Sig/Herrera Route Start Time Stop Time Status Last Admin Dose Admin Aspirin 324 mg ONCE ONCE PO 12/27/21 15:30 12/27/21 15:31 DC 12/27/21 15:37 324 MG Vital Signs/I&O 12/27/21 15:25 Temp 36.7 Pulse 86 B/P (MAP) 125/72 (89) O2 Delivery Room Air Progress Progress Note : Progress Note Patient with a negative EKG with no acute findings, negative troponin which would be equivalent to approximately 24-hour troponin test after the chest pain started, no acute finding on x-ray or labs. I did discuss with Dr. Szymanski who suggested a 2-hour troponin and then let him go home with that was negative. I went to discuss with patient who felt like it varying looks good now he is just ready go home and would prefer to defer the 2-hour troponin. I did discuss with him there is a still small risk that it could elevate. He voices understanding but still states he is ready to go home. Discussed with him that if his chest pain returns and worsens he should return to the ER. Patient stable and discharged home Initial ECG Impression Date: Dec 27, 2021 Initial ECG Impression Time: 15:12 Initial ECG Rate: 81 Initial ECG Rhythm: Normal Sinus Comment nsr, rbbb, no acute st elevation Diagnostic Imaging Diagonstic Imaging: Xray Plain Films/CT/US/NM/MRI: chest Comments CHEST 1 VIEW AP/PA ONLY INDICATION: Chest pain. TECHNIQUE: Frontal chest obtained at 03:31 p.m. and compared to 12/08/2021. FINDINGS: Heart is normal in size. Pacemaker is unchanged. There is no focal infiltrate or pneumothorax or pleural fluid. IMPRESSION: No acute process in the chest. Departure Impression Primary Impression: Chest pain Qualified Codes: R07.9 - Chest pain, unspecified Disposition: HOME, SELF-CARE Condition: Stable Departure-Patient Inst. Referrals: MARCELL DE LA CRUZ APRN (PCP) Primary Care Physician [facility]ROSA MAR[facility] (Family) Primary Care Physician Patient Instructions: Chest Pain (DC) Add. Discharge Instructions: Keep your appointment as already scheduled for follow-up with Dr. Szymanski Return to the ER if your chest pain worsens, you become short of breath or any other concerns. All discharge instructions reviewed with patient and/or family. Voiced understanding. RAYRAY PUGH DO Dec 27, 2021 15:17
[2021-12-27] MEDS ORDERED: ASPIRIN 81 MG CHEW (CHILDREN'S ASA) PO ONE (15:30)
[2021-12-27 15:33] LABS: BASOPHILS % (AUTO) 0 % (0-10); EOSINOPHILS % (AUTO) 2 % (0-10); HEMATOCRIT 52 % (40-54); HEMOGLOBIN 17.2 g/dL (13.3-17.7); LYMPHOCYTES # (AUTO) 2.2 X 10^3 (1.0-4.0); LYMPHOCYTES % (AUTO) 23 % (12-44); MEAN CORPUSCULAR HEMOGLOBIN 32 pg (25-34); MEAN CORPUSCULAR HGB CONC 33 g/dL (32-36); MEAN CORPUSCULAR VOLUME 95 fL (80-99); MEAN PLATELET VOLUME 8.6 fL (9.0-12.2); MONOCYTES # (AUTO) 0.7 X 10^3 (0.0-1.0); MONOCYTES % (AUTO) 8 % (0-12); NEUTROPHILS # (AUTO) 6.4 X 10^3 (1.8-7.8); NEUTROPHILS % (AUTO) 67 % (42-75); PLATELET COUNT 231 10^3/uL (130-400); WHITE BLOOD COUNT 9.6 10^3/uL (4.3-11.0)
[2021-12-27 15:34] LABS: EOSINOPHILS # (AUTO) 0.2 10^3/uL (0.0-0.3)
[2021-12-27 15:43] LABS: INR 0.9 (0.8-1.4); PROTHROMBIN TIME PATIENT 12.8 SEC (12.2-14.7)
--- NOTE | 2021-12-27 15:45 | Diagnostic Imaging Report ---
INDICATION: Chest pain. TECHNIQUE: Frontal chest obtained at 03:31 p.m. and compared to 12/08/2021. FINDINGS: Heart is normal in size. Pacemaker is unchanged. There is no focal infiltrate or pneumothorax or pleural fluid. IMPRESSION: No acute process in the chest. Dictated by: Dictated on workstation # [id number]
[2021-12-27 15:54] LABS: ALBUMIN 3.8 GM/DL (3.2-4.5); BILIRUBIN,TOTAL 0.3 MG/DL (0.1-1.0); CALCIUM 9.2 MG/DL (8.5-10.1); CREATININE SERUM 0.85 MG/DL (0.60-1.30); POTASSIUM 3.7 MMOL/L (3.6-5.0)
[2021-12-27 16:44] VITALS: BP 113/76
== END 2021-12-27 16:49 | disposition home or self-care (01) ==
LOC: EDUNIT# 15:13 → ER FS 15:14
DX: R07.9 Chest pain, unspecified (principal); I10 Essential (primary) hypertension; E78.00 Pure hypercholesterolemia, unspecified; I25.2 Old myocardial infarction; Z95.0 Presence of cardiac pacemaker; Z95.5 Presence of coronary angioplasty implant and graft; Z79.82 Long term (current) use of aspirin; Z79.899 Other long term (current) drug therapy
CPT/HCPCS: 36415; 71045; 80053; 83735; 83874; 84484; 85025; 85610; 85730; 93005; 93041

== ENCOUNTER 2022-02-17 19:42 | Emergency (ER) | payer BC ==
[~2022-02-17] VITALS: Ht 180 cm; Wt 70.9 kg
[2022-02-17 20:11] VITALS: BP 111/67
[2022-02-17] MEDS ORDERED: NS IV 1000 ML 1,000 ML IV STA (20:24)
--- NOTE | 2022-02-17 20:26 | ED General ---
General Chief Complaint: Abdominal/GI Problems Stated Complaint: ABD PAIN Nursing Triage Note: PT PRESENT WITH C/O LLQ PAIN SINCE THURSDAY WITH N/V/D Source of Information: Patient History of Present Illness Date Seen by Provider: Feb 17, 2022 Time Seen by Provider: 19:49 Initial Comments 56-year-old male presenting with complaints of left lower quadrant and epigastric abdominal pain with loose stools and nausea and vomiting since Thursday. He was unsure if this was from something he had eaten or what was causing his symptoms. He feels worse after eating since Thursday. He can drink fluids without issue. He denies fever, chills, chest pain, pain with urination, blood in his urine, blood in the stools. He denies any history of diverticulitis or pancreatitis. He had to leave work early today because he was having discomfort in his stomach. He did eat macaroni and cheese and hot dogs for supper without vomiting but it did increase his pain. Timing/Duration: 3-4 Days Severity: Moderate Modifying Factors: worse with Eating Associated Systoms: No Chest Pain, No Cough, No Diaphoresis, No Fever/Chills, No Headaches, No Loss of Appetite, No Malaise; Nausea/Vomiting (Thursday had vomiting otherwise some mild nausea after eating and having pain); No Rash, No Seizure, No Shortness of Air, No Syncope, No Weakness Allergies and Home Medications Allergies Coded Allergies: Penicillins (Verified Allergy, Intermediate, Hives, 04/11/20) Patient Home Medication List Home Medication List Reviewed: Yes Aspirin (Aspirin EC) 81 Mg Tablet.dr, 81 MG PO HS, (Reported) Entered as Reported by: ALIYA SHEPHERD on 12/09/21 1029 Atorvastatin Calcium (Atorvastatin Calcium) 80 Mg Tablet, 80 MG PO HS, (Reported) Entered as Reported by: ARA AIKEN on 04/11/20 1313 Clopidogrel Bisulfate (Clopidogrel) 75 Mg Tablet, 75 MG PO HS, (Reported) Entered as Reported by: ALIYA SHEPHERD on 12/09/21 1029 Dicyclomine HCl (Dicyclomine HCl) 10 Mg Capsule, 10 MG PO Q6H PRN for abdominal pain/nausea Prescribed by: JOSÉ LUIS LARA on 02/17/222103 Fluticasone Propionate (Fluticasone Propionate) 16 Gm [place].susp, 1 SPRAY NSEACH DAILY, (Reported) Entered as Reported by: ALIYA SHEPHERD on 12/09/21 1029 Metoprolol Succinate (Metoprolol Succinate) 50 Mg Tab.er.24h, 50 MG PO DAILY, (Reported) Entered as Reported by: ALIYA SHEPHERD on 12/09/21 1029 Review of Systems Review of Systems Constitutional: No chills, No fever EENTM: no symptoms reported Respiratory: no symptoms reported Cardiovascular: no symptoms reported Gastrointestinal: see HPI Genitourinary: no symptoms reported Musculoskeletal: no symptoms reported Skin: no symptoms reported Psychiatric/Neurological: No Symptoms Reported Past Kckbkyw-Duucus-Ipipam Hx Patient Social History Tobacco Use?: Yes Tobacco type used: Cigarettes Smoking Status: Current Everyday Smoker Substance use?: No Alcohol Use?: No Pt feels they are or have been: No Immunizations Up To Date Influenza Vaccine Up-to-Date: No; Not Current First/Initial COVID19 Vaccinat: Not Currently Vaccinated Second COVID19 Vaccination Navdeep: Not Currently Vaccinated Third COVID19 Vaccination Date: Not Currently Vaccinated Seasonal Allergies Seasonal Allergies: No Past Medical History Surgery/Hospitalization HX: HTN; High Cholesterol; Pacemaker Surgeries: Yes (cardiac stent placement, [employer]) Respiratory: No Cardiac: Yes (stent placement ) High Cholesterol Neurological: No Genitourinary: No Gastrointestinal: No Musculoskeletal: Yes (back injury in high school) Endocrine: No HEENT: No Cancer: No Psychosocial: No Integumentary: No Physical Exam Vital Signs Vital Signs - First Documented 02/17/22 20:11 Temp 36.8 Pulse 77 Resp 18 B/P (MAP) 111/67 (82) Pulse Ox 92 O2 Delivery Room Air Capillary Refill : Height, Weight, BMI Height: 5'11.00" Weight: 156lbs. oz. 70.648143jj; 21.00 BMI Method:Stated General Appearance: No Apparent Distress, WD/WN HEENT: PERRL/EOMI, Pharynx Normal Neck: Full Range of Motion, Normal Inspection, Non Tender, Supple Respiratory: Chest Non Tender, Lungs Clear, Normal Breath Sounds, No Accessory Muscle Use, No Respiratory Distress Cardiovascular: Regular Rate, Rhythm, Normal Peripheral Pulses Gastrointestinal: Normal Bowel Sounds, No Organomegaly, No Pulsatile Mass, Soft; No Distended, No Guarding, No Rebound; Tenderness (Mild tenderness in the epigastric and left side of the abdomen) Rectal: Deferred Back: No CVA Tenderness Extremity: Normal Capillary Refill, Normal Inspection, No Calf Tenderness, No Pedal Edema Neurologic/Psychiatric: Alert, Oriented x3 Skin: Normal Color, Warm/Dry Progress/Results/Core Measures Suspected Sepsis SIRS Temperature: Pulse: 77 Respiratory Rate: 18 Laboratory Tests 02/17/22 20:11: White Blood Count 8.6 Blood Pressure 111 /67 Mean: 82 Laboratory Tests 02/17/22 20:11: Creatinine 0.87, Platelet Count 175, Total Bilirubin 0.2 Results/Orders Lab Results Laboratory Tests Test 02/17/22 20:11 Range/Units White Blood Count 8.6 4.3-11.0 10^3/uL Red Blood Count 5.53 H 4.30-5.52 10^6/uL Hemoglobin 17.6 13.3-17.7 g/dL Hematocrit 52 40-54 % Mean Corpuscular Volume 94 80-99 fL Mean Corpuscular Hemoglobin 32 25-34 pg Mean Corpuscular Hemoglobin Concent 34 32-36 g/dL Red Cell Distribution Width 13.6 10.0-14.5 % Platelet Count 175 130-400 10^3/uL Mean Platelet Volume 8.6 L 9.0-12.2 fL Immature Granulocyte % (Auto) 0 % Neutrophils (%) (Auto) 72 42-75 % Lymphocytes (%) (Auto) 18 12-44 % Monocytes (%) (Auto) 7 0-12 % Eosinophils (%) (Auto) 2 0-10 % Basophils (%) (Auto) 1 0-10 % Neutrophils # (Auto) 6.2 1.8-7.8 10^3/uL Lymphocytes # (Auto) 1.5 1.0-4.0 10^3/uL Monocytes # (Auto) 0.6 0.0-1.0 10^3/uL Eosinophils # (Auto) 0.2 0.0-0.3 10^3/uL Basophils # (Auto) 0.0 0.0-0.1 10^3/uL Immature Granulocyte # (Auto) 0.0 0.0-0.1 10^3/uL Sodium Level 139 135-145 MMOL/L Potassium Level 4.1 3.6-5.0 MMOL/L Chloride Level 103 98-107 MMOL/L Carbon Dioxide Level 24 21-32 MMOL/L Anion Gap 12 5-14 MMOL/L Blood Urea Nitrogen 13 7-18 MG/DL Creatinine 0.87 0.60-1.30 MG/DL Estimat Glomerular Filtration Rate 101 BUN/Creatinine Ratio 15 Glucose Level 105 70-105 MG/DL Calcium Level 9.5 8.5-10.1 MG/DL Corrected Calcium 9.6 8.5-10.1 MG/DL Total Bilirubin 0.2 0.1-1.0 MG/DL Aspartate Amino Transf (AST/SGOT) 17 5-34 U/L Alanine Aminotransferase (ALT/SGPT) 14 0-55 U/L Alkaline Phosphatase 117 40-136 U/L Total Protein 6.5 6.4-8.2 GM/DL Albumin 3.9 3.2-4.5 GM/DL Lipase 14 8-78 U/L My Orders Orders - JOSÉ LUIS LARA MD Comprehensive Metabolic Panel (02/17/22 20:14) Lipase (02/17/22 20:14) Ed Iv/Invasive Line Start (02/17/22 20:14) Cbc With Automated Diff (02/17/22 20:14) Ct Abdomen/Pelvis W (02/17/22 20:14) Iohexol Injection (Omnipaque 350 Mg/Ml 1 (02/17/22 20:30) Received Contrast (Hold Metformin- Contr (02/17/22 20:30) Sodium Chloride Flush (Catheter Flush Sy (02/17/22 20:30) Ns (Ivpb) (Sodium Chloride 0.9% Ivpb Bag (02/17/22 20:30) Ns Iv 1000 Ml (Sodium Chloride 0.9%) (02/17/22 20:24) Rx-Dicyclomine Capsule (Rx-Bentyl Capsul (02/17/22 21:13) Medications Given in ED Current Medications Medications Dose Ordered Sig/Herrera Route Start Time Stop Time Status Last Admin Dose Admin Iohexol 100 ml ONCE ONCE IV 02/17/22 20:30 02/17/22 20:31 DC 02/17/22 20:42 100 ML Sodium Chloride 10 ml NEEDED PRN IV 02/17/22 20:30 02/17/22 21:21 DC 02/17/22 20:43 10 ML Sodium Chloride 100 ml ONCE ONCE IV 02/17/22 20:30 02/17/22 20:31 DC 02/17/22 20:43 100 ML Vital Signs/I&O 02/17/22 02/17/22 20:11 20:50 Temp 36.8 Pulse 77 87 Resp 18 18 B/P (MAP) 111/67 (82) 126/84 Pulse Ox 92 94 O2 Delivery Room Air Room Air Capillary Refill : Blood Pressure Mean: 82 Progress Note #1: Progress Note Check basic labs and CT scan of the abdomen pelvis to evaluate for possible colitis versus diverticulitis versus pancreatitis versus appendicitis versus cholecystitis versus bowel obstruction. Give IV fluids for hydration. Patient refused needing any pain medication or nausea medicine. Progress Note #2: Progress Note Labs appear stable without acute significant abnormality. His CT scan came back showing no acute significant abnormality. He had a normal appendix and did not show signs of increased lymphadenopathy or fluid collection. He had some mild diverticulosis but no diverticulitis. His chemistry panel was normal without elevation of LFTs or lipase. Counseled on follow-up and return precautions. We will try Bentyl for abdominal pain and cramping as well as nausea. Encouraged to follow-up liquid or low-fat bland diet. Diagnostic Imaging Diagonstic Imaging: CT Plain Films/CT/US/NM/MRI: abdomen, pelvis Comments NAME: MAX ORDOÑEZ [facility] REC#: [id number] PT STATUS: REG ER : 1965 PHYSICIAN: JOSÉ LUIS LARA MD ADMIT DATE: 02/17/22/ER FS Draft Date of Exam:02/17/22 CT ABDOMEN/PELVIS W EXAMINATION: CT abdomen and pelvis with intravenous contrast. TECHNIQUE: Multiple contiguous axial images were obtained through the abdomen and pelvis after the uneventful administration of intravenous contrast. All CT scans use one or more of the following dose optimizing techniques: automated exposure control, MA and/or KvP adjustment based on patient size and exam type or iterative reconstruction. HISTORY: Left lower quadrant pain COMPARISON: None available. FINDINGS: Limited views of the lower thorax show mild atelectasis. Pacemaker is present. The liver is normal without focal lesion. There is no biliary ductal dilation. Gallbladder is normal. Pancreas is normal. Spleen is normal. Adrenal glands are normal. The kidneys are normal. There is no hydronephrosis. Urinary bladder is normal. Bowel is normal in caliber without obstruction or inflammation. There is diverticulosis without diverticulitis. No free fluid or air. No abdominal or pelvic lymphadenopathy. Aorta is normal in caliber without aneurysm. There are no suspicious osseus lesions. IMPRESSION: 1. No acute abnormality in the abdomen or pelvis. Dictated on workstation # [id number] Dict: 02/17/222054 Trans: 02/17/222057 [facility] [place] [id number] Interpreted by: JERROD FOSS MD Electronically signed by: Reviewed: Reviewed by Me Departure Impression Primary Impression: Diffuse abdominal pain Additional Impression: Gastroenteritis Disposition: HOME, SELF-CARE Condition: Stable Departure-Patient Inst. Decision time for Depature: 21:02 Referrals: MARCELL DE LA CRUZ APRN (PCP) Primary Care Physician [facility] (Family) Primary Care Physician Patient Instructions: Diarrhea, Adult ED, Abdominal Pain, Adult ED, Viral Gastroenteritis, Adult (DC) Add. Discharge Instructions: Stay well hydrated and drink plenty of fluids. Follow up with clinic if not improving or having continued concerns. Try the medicine for abdominal cramping/spasm and nausea to see if that helps your symptoms. Try a probiotic to help replace the good bacteria in your gut that helps with digestion. All discharge instructions reviewed with patient and/or family. Voiced understanding. Scripts Dicyclomine HCl (Dicyclomine HCl) 10 Mg Capsule 10 MG PO Q6H PRN for abdominal pain/nausea for 7 Days, #28 CAP 0 Refills Prov: JOSÉ LUIS LARA MD 02/17/22 Work/School Note: Work Release Form Date Seen in the Emergency Department: Feb 17, 2022 Return to Work: Feb 19, 2022 Restrictions: Return-No Vomiting(24hrs) JOSÉ LUIS LARA MD Feb 17, 2022 20:25
[2022-02-17 20:28] LABS: BASOPHILS % (AUTO) 1 % (0-10); EOSINOPHILS # (AUTO) 0.2 10^3/uL (0.0-0.3); EOSINOPHILS % (AUTO) 2 % (0-10); HEMATOCRIT 52 % (40-54); HEMOGLOBIN 17.6 g/dL (13.3-17.7); LYMPHOCYTES # (AUTO) 1.5 10^3/uL (1.0-4.0); LYMPHOCYTES % (AUTO) 18 % (12-44); MEAN CORPUSCULAR HEMOGLOBIN 32 pg (25-34); MEAN CORPUSCULAR HGB CONC 34 g/dL (32-36); MEAN CORPUSCULAR VOLUME 94 fL (80-99); MEAN PLATELET VOLUME 8.6 fL (9.0-12.2); MONOCYTES # (AUTO) 0.6 10^3/uL (0.0-1.0); MONOCYTES % (AUTO) 7 % (0-12); NEUTROPHILS # (AUTO) 6.2 10^3/uL (1.8-7.8); NEUTROPHILS % (AUTO) 72 % (42-75); PLATELET COUNT 175 10^3/uL (130-400); WHITE BLOOD COUNT 8.6 10^3/uL (4.3-11.0)
[2022-02-17] MEDS ORDERED: IOHEXOL 350 MG/ML 100 ML (OMNIPAQUE 350) VIAL IV ONE (20:30)
[2022-02-17] MEDS ORDERED: CATHETER FLUSH 10 ML SYR IV PRN (20:30)
[2022-02-17] MEDS ORDERED: NS 100 ML (IVPB) BAG IV ONE (20:30)
[2022-02-17] MEDS ORDERED: HOLD METFORMIN - RECEIVED CONTRAST 20 ML VIAL IV SCH (20:30)
[2022-02-17 20:55] LABS: CREATININE SERUM 0.87 MG/DL (0.60-1.30); POTASSIUM 4.1 MMOL/L (3.6-5.0)
[2022-02-17 20:56] LABS: ALBUMIN 3.9 GM/DL (3.2-4.5); BILIRUBIN,TOTAL 0.2 MG/DL (0.1-1.0); CALCIUM 9.5 MG/DL (8.5-10.1); TOTAL PROTEIN 6.5 GM/DL (6.4-8.2)
--- NOTE | 2022-02-17 20:58 | Diagnostic Imaging Report ---
EXAMINATION: CT abdomen and pelvis with intravenous contrast. TECHNIQUE: Multiple contiguous axial images were obtained through the abdomen and pelvis after the uneventful administration of intravenous contrast. All CT scans use one or more of the following dose optimizing techniques: automated exposure control, MA and/or KvP adjustment based on patient size and exam type or iterative reconstruction. HISTORY: Left lower quadrant pain COMPARISON: None available. FINDINGS: Limited views of the lower thorax show mild atelectasis. Pacemaker is present. The liver is normal without focal lesion. There is no biliary ductal dilation. Gallbladder is normal. Pancreas is normal. Spleen is normal. Adrenal glands are normal. The kidneys are normal. There is no hydronephrosis. Urinary bladder is normal. Bowel is normal in caliber without obstruction or inflammation. There is diverticulosis without diverticulitis. No free fluid or air. No abdominal or pelvic lymphadenopathy. Aorta is normal in caliber without aneurysm. There are no suspicious osseus lesions. IMPRESSION: 1. No acute abnormality in the abdomen or pelvis. Dictated by: Dictated on workstation # [id number]
[2022-02-17] MEDS ORDERED: DICY10CA12 PO (21:04)
[2022-02-17] MEDS ORDERED: RX-DICYCLOMINE 10 MG (BENTYL) CAP PPK#4 PO STA (21:13)
== END 2022-02-17 21:19 | disposition home or self-care (01) ==
LOC: EDUNIT# 19:42 → ER FS 19:43
DX: K52.9 Noninfective gastroenteritis and colitis, unspecified (principal); F17.210 Nicotine dependence, cigarettes, uncomplicated
CPT/HCPCS: 36415; 74177; 80053; 83690; 85025; Q9967

== ENCOUNTER 2022-03-25 15:00 | Emergency (ER) | payer BC ==
[~2022-03-25] VITALS: Ht 180 cm; Wt 70.9 kg
[~2022-03-25 15:00] MED LIST changes: +DICY10CA12 PO
--- NOTE | 2022-03-25 15:16 | ED Cardiac General ---
History of Present Illness General Chief Complaint: Chest Pain Stated Complaint: CHEST PAINS Source: patient Exam Limitations: no limitations History of Present Illness Date Seen by Provider: Mar 25, 2022 Time Seen by Provider: 15:07 Initial Comments 56yoM with PMH of CAD s/p stents placed, HTN, HLD, and pacemaker coming in due to chest pain. Started yesterday, is sharp, intermittent, and central chest pain. Feels similar to prior episodes. It is not exertional or positional. No prior DVT/PE. No recent surgeries. No hemoptysis. No leg swelling or pain. He has not had any of his meds today including aspirin as of yet. Allergies and Home Medications Allergies Coded Allergies: Penicillins (Verified Allergy, Intermediate, Hives, 04/11/20) Patient Home Medication List Home Medication List Reviewed: Yes Aspirin (Aspirin EC) 81 Mg Tablet.dr, 81 MG PO HS, (Reported) Entered as Reported by: ALIYA SHEPHERD on 12/09/21 1029 Atorvastatin Calcium (Atorvastatin Calcium) 80 Mg Tablet, 80 MG PO HS, (Reported) Entered as Reported by: ARA AIKEN on 04/11/20 1313 Clopidogrel Bisulfate (Clopidogrel) 75 Mg Tablet, 75 MG PO HS, (Reported) Entered as Reported by: ALIYA SHEPHERD on 12/09/21 1029 Dicyclomine HCl (Dicyclomine HCl) 10 Mg Capsule, 10 MG PO Q6H PRN for abdominal pain/nausea Prescribed by: JOSÉ LUIS LARA on 02/17/22 210 Fluticasone Propionate (Fluticasone Propionate) 16 Gm [place].susp, 1 SPRAY NSEACH DAILY, (Reported) Entered as Reported by: ALIYA SHEPHERD on 12/09/21 1029 Metoprolol Succinate (Metoprolol Succinate) 50 Mg Tab.er.24h, 50 MG PO DAILY, (Reported) Entered as Reported by: ALIYA SHEPHERD on 12/09/21 1029 Review of Systems Review of Systems Constitutional: No chills EENTM: No Blurred Vision Respiratory: Denies Cough Cardiovascular: Chest Pain Gastrointestinal: No Symptoms Reported Genitourinary: No Symptoms Reported Musculoskeletal: no symptoms reported Skin: no symptoms reported Psychiatric/Neurological: No Symptoms Reported Endocrine: No Symptoms Reported Hematologic/Lymphatic: No Symptoms Reported All Other Systems Reviewed Negative Unless Noted: Yes Past Smcmypj-Arjtpt-Iheakk Hx Patient Social History Tobacco Use?: Yes Immunizations Up To Date First/Initial COVID19 Vaccinat: Not Currently Vaccinated Second COVID19 Vaccination Navdeep: Not Currently Vaccinated Third COVID19 Vaccination Date: Not Currently Vaccinated Seasonal Allergies Seasonal Allergies: No Past Medical History Surgery/Hospitalization HX: HTN; High Cholesterol; Pacemaker Surgeries: Yes (cardiac stent placement, [employer]) Respiratory: No Cardiac: Yes (stent placement ) High Cholesterol Neurological: No Genitourinary: No Gastrointestinal: No Musculoskeletal: Yes (back injury in high school) Endocrine: No HEENT: No Cancer: No Psychosocial: No Integumentary: No Physical Exam Vital Signs Vital Signs - First Documented 03/25/22 15:05 Temp 36.7 Pulse 104 Resp 20 B/P (MAP) 100/71 (81) Pulse Ox 97 O2 Delivery Room Air Capillary Refill : Height, Weight, BMI Height: 5'11.00" Weight: 156lbs. oz. 70.068038gf; 21.00 BMI Method:Stated General Appearance: No Apparent Distress, WD/WN HEENT: PERRL/EOMI, Normal ENT Inspection, Pharynx Normal Neck: Full Range of Motion, Normal Inspection, Non Tender, Supple Respiratory: Chest Non Tender, Lungs Clear, Normal Breath Sounds, No Accessory Muscle Use, No Respiratory Distress Cardiovascular: Regular Rate, Rhythm, No Edema, Normal Peripheral Pulses Gastrointestinal: Normal Bowel Sounds, Non Tender, Soft Extremity: Normal Capillary Refill, Normal Inspection, Normal Range of Motion, Non Tender, No Calf Tenderness, No Pedal Edema Neurologic/Psychiatric: Alert, No Motor/Sensory Deficits, Normal Mood/Affect Skin: Normal Color, Warm/Dry Lymphatic: No Adenopathy Progress/Results/Core Measures Results/Orders Lab Results Laboratory Tests Test 03/25/22 15:13 03/25/22 16:55 Range/Units White Blood Count 7.4 4.3-11.0 10^3/uL Red Blood Count 5.91 H 4.30-5.52 10^6/uL Hemoglobin 18.8 H 13.3-17.7 g/dL Hematocrit 54 40-54 % Mean Corpuscular Volume 91 80-99 fL Mean Corpuscular Hemoglobin 32 25-34 pg Mean Corpuscular Hemoglobin Concent 35 32-36 g/dL Red Cell Distribution Width 13.3 10.0-14.5 % Platelet Count 210 130-400 10^3/uL Mean Platelet Volume 8.4 L 9.0-12.2 fL Immature Granulocyte % (Auto) 0 % Neutrophils (%) (Auto) 66 42-75 % Lymphocytes (%) (Auto) 22 12-44 % Monocytes (%) (Auto) 9 0-12 % Eosinophils (%) (Auto) 2 0-10 % Basophils (%) (Auto) 1 0-10 % Neutrophils # (Auto) 4.9 1.8-7.8 10^3/uL Lymphocytes # (Auto) 1.6 1.0-4.0 10^3/uL Monocytes # (Auto) 0.7 0.0-1.0 10^3/uL Eosinophils # (Auto) 0.2 0.0-0.3 10^3/uL Basophils # (Auto) 0.0 0.0-0.1 10^3/uL Immature Granulocyte # (Auto) 0.0 0.0-0.1 10^3/uL Prothrombin Time 12.4 12.2-14.7 SEC INR Comment 0.9 0.8-1.4 Activated Partial Thromboplast Time 27 24-35 SEC Sodium Level 138 135-145 MMOL/L Potassium Level 4.4 3.6-5.0 MMOL/L Chloride Level 105 98-107 MMOL/L Carbon Dioxide Level 22 21-32 MMOL/L Anion Gap 11 5-14 MMOL/L Blood Urea Nitrogen 17 7-18 MG/DL Creatinine 0.93 0.60-1.30 MG/DL Estimat Glomerular Filtration Rate 96 BUN/Creatinine Ratio 18 Glucose Level 104 70-105 MG/DL Calcium Level 10.0 8.5-10.1 MG/DL Corrected Calcium 9.8 8.5-10.1 MG/DL Magnesium Level 2.1 1.6-2.4 MG/DL Total Bilirubin 0.3 0.1-1.0 MG/DL Aspartate Amino Transf (AST/SGOT) 16 5-34 U/L Alanine Aminotransferase (ALT/SGPT) 13 0-55 U/L Alkaline Phosphatase 125 40-136 U/L Troponin I < 0.30 < 0.30 <0.30 NG/ML Pro-B-Type Natriuretic Peptide 147.9 H <75.0 PG/ML Total Protein 6.8 6.4-8.2 GM/DL Albumin 4.2 3.2-4.5 GM/DL My Orders Orders - ROGER SHIRLEY MD Cbc With Automated Diff (03/25/22 15:12) Magnesium (03/25/22 15:12) Chest 1 View Ap/Pa Only (03/25/22 15:12) Ekg Tracing (03/25/22 15:12) Comprehensive Metabolic Panel (03/25/22 15:12) Protime With Inr (03/25/22 15:12) Partial Thromboplastin Time (03/25/22 15:12) O2 (03/25/22 15:12) Monitor-Rhythm Ecg Trace Only (03/25/22 15:12) Ed Iv/Invasive Line Start (03/25/22 15:12) Troponin I Fs (03/25/22 15:12) Probnp Fs (03/25/22 15:12) Aspirin Chewable Tablet (Baby Aspirin Ch (03/25/22 15:20) Clopidogrel Tablet (Plavix Tablet) (03/25/22 15:20) Troponin I Fs (03/25/22 17:00) Vital Signs/I&O 03/25/22 15:05 Temp 36.7 Pulse 104 Resp 20 B/P (MAP) 100/71 (81) Pulse Ox 97 O2 Delivery Room Air Progress Progress Note : Progress Note 56-year-old male coming in for 24 hours roughly of chest pain. ABCs were intact and vitals were stable on presentation. Physical exam reassuring with no focal abnormalities. EKG looks similar to prior with no acute ischemic changes. Chest x-ray without abnormalities. Troponin negative x2 and BNP reassuring. The patient has been pain-free since in the emergency department. He did get aspirin and Plavix here. Low suspicion for PE given he is not short of breath, not tachycardic, no risk factors. I believe he stable for discharge with rapid follow-up with cardiology. He was sent home with strict return precautions. Initial ECG Impression Date: Mar 25, 2022 Initial ECG Impression Time: 15:08 Initial ECG Rate: 92 Initial ECG Rhythm: Normal Sinus Comment Wide QRS with a right bundle branch block, no significant ST changes however there is significant wander of the baseline making it difficult to interpret specifically leads II and III, overall appears similar to prior EKG Diagnostic Imaging Diagonstic Imaging: Xray (chest) Comments NAME: MAX ORDOÑEZ [facility] REC#: [id number] PT STATUS: REG ER : 1965 PHYSICIAN: ROGER SHIRLEY MD ADMIT DATE: 03/25/22/ER FS Draft Date of Exam:03/25/22 CHEST 1 VIEW AP/PA ONLY INDICATION: Chest pain. TECHNIQUE: Frontal chest obtained at 03:19 p.m. and compared to 12/27/2021. FINDINGS: Heart and mediastinal silhouette are normal in appearance. Pacemaker is unchanged. There is no focal infiltrate or pneumothorax or pleural fluid. IMPRESSION: No acute process in the chest. Dictated on workstation # [id number] Dict: 03/25/22 1526 Trans: 03/25/22 1530 AS6 [id number] Interpreted by: RADHA FRAGOSO MD Electronically signed by: Departure Impression Primary Impression: Chest pain Qualified Codes: R07.9 - Chest pain, unspecified Disposition: 01 HOME, SELF-CARE Condition: Stable Departure-Patient Inst. Decision time for Depature: 17:31 Referrals: MARCELL DE LA CRUZ APRN (PCP) Primary Care Physician [facility] [place] (Family) Primary Care Physician MARCUS ROSE MD FACP [facility] Patient Instructions: Chest Pain, Adult ED Add. Discharge Instructions: It does not appear like in this moment you are having a heart attack. 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 Follow-up with Dr. Rose in the next week. Work/School Note: Work Release Form Date Seen in the Emergency Department: Mar 25, 2022 Return to Work: Mar 26, 2022 Restrictions: No Restrictions ROGER SHIRLEY MD Mar 25, 2022 15:16
[2022-03-25] MEDS ORDERED: ASPIRIN 81 MG CHEW (CHILDREN'S ASA) PO STA (15:20)
[2022-03-25] MEDS ORDERED: CLOPIDOGREL 75 MG (PLAVIX) TABLET PO STA (15:20)
--- NOTE | 2022-03-25 15:30 | Diagnostic Imaging Report ---
INDICATION: Chest pain. TECHNIQUE: Frontal chest obtained at 03:19 p.m. and compared to 12/27/2021. FINDINGS: Heart and mediastinal silhouette are normal in appearance. Pacemaker is unchanged. There is no focal infiltrate or pneumothorax or pleural fluid. IMPRESSION: No acute process in the chest. Dictated by: Dictated on workstation # [id number]
[2022-03-25 15:32] LABS: BASOPHILS % (AUTO) 1 % (0-10); EOSINOPHILS # (AUTO) 0.2 10^3/uL (0.0-0.3); EOSINOPHILS % (AUTO) 2 % (0-10); HEMATOCRIT 54 % (40-54); HEMOGLOBIN 18.8 g/dL (13.3-17.7); INR 0.9 (0.8-1.4); LYMPHOCYTES # (AUTO) 1.6 10^3/uL (1.0-4.0); LYMPHOCYTES % (AUTO) 22 % (12-44); MEAN CORPUSCULAR HEMOGLOBIN 32 pg (25-34); MEAN CORPUSCULAR HGB CONC 35 g/dL (32-36); MEAN CORPUSCULAR VOLUME 91 fL (80-99); MEAN PLATELET VOLUME 8.4 fL (9.0-12.2); MONOCYTES # (AUTO) 0.7 10^3/uL (0.0-1.0); MONOCYTES % (AUTO) 9 % (0-12); NEUTROPHILS # (AUTO) 4.9 10^3/uL (1.8-7.8); NEUTROPHILS % (AUTO) 66 % (42-75); PLATELET COUNT 210 10^3/uL (130-400); PROTHROMBIN TIME PATIENT 12.4 SEC (12.2-14.7); WHITE BLOOD COUNT 7.4 10^3/uL (4.3-11.0)
[2022-03-25 15:42] LABS: ALBUMIN 4.2 GM/DL (3.2-4.5); BILIRUBIN,TOTAL 0.3 MG/DL (0.1-1.0); CREATININE SERUM 0.93 MG/DL (0.60-1.30); MAGNESIUM 2.1 MG/DL (1.6-2.4); POTASSIUM 4.4 MMOL/L (3.6-5.0); TOTAL PROTEIN 6.8 GM/DL (6.4-8.2)
[2022-03-25 17:34] VITALS: BP 95/69
== END 2022-03-25 17:34 | disposition home or self-care (01) ==
LOC: EDUNIT# 15:00 → ER FS 15:03
DX: R07.9 Chest pain, unspecified (principal)
CPT/HCPCS: 36415; 71045; 80053; 83735; 83880; 84484; 85025; 85610; 85730; 93005; 93041

== ENCOUNTER 2022-05-13 12:00 | Day surgery (SDC) | payer BC ==
[2022-05-13] VITALS (17 sets, daily range): BP systolic 87–108; BP diastolic 65–77
[~2022-05-13] VITALS: Ht 180.3 cm; Wt 70.6 kg
[2022-05-13 10:36] LABS: HEMATOCRIT 55 % (40-54); MEAN CORPUSCULAR HEMOGLOBIN 32 pg (25-34); MEAN CORPUSCULAR HGB CONC 35 g/dL (32-36); MEAN CORPUSCULAR VOLUME 92 fL (80-99); MEAN PLATELET VOLUME 8.1 fL (9.0-12.2); PLATELET COUNT 223 10^3/uL (130-400); WHITE BLOOD COUNT 8.8 10^3/uL (4.3-11.0)
[2022-05-13 10:47] LABS: INR 0.9 (0.8-1.4); PROTHROMBIN TIME PATIENT 12.6 SEC (12.2-14.7)
[2022-05-13 10:57] LABS: ALBUMIN 4.1 GM/DL (3.2-4.5); BILIRUBIN,TOTAL 0.8 MG/DL (0.1-1.0); CALCIUM 9.5 MG/DL (8.5-10.1); CREATININE SERUM 0.85 MG/DL (0.60-1.30); POTASSIUM 4.1 MMOL/L (3.6-5.0); TOTAL PROTEIN 6.9 GM/DL (6.4-8.2)
[~2022-05-13 12:00] MED LIST changes: +HEParin (CATH LAB) 2,000 ML IV ONE; +LIDOCAINE 1% INJ 20 ML VIAL ONE; +MIDAZOLAM 5 MG/5 ML (VERSED) VIAL ONE; +NS IV 1000 ML 1,000 ML IV SCH; +NS IV 1000 ML 1,000 ML ONE; +fentaNYL INJ 100 MCG/2 ML AMP ONE
[2022-05-13] MEDS ORDERED: ADENOSINE 90 MG/30 ML (ADENOSCAN) VIAL IV ONE ×2 (12:01→12:05)
[2022-05-13] MEDS ORDERED: HEParin 1000 UNIT/ML (10ML VIAL) FOR BOLUS ONE (12:01)
--- NOTE | 2022-05-13 12:26 | Cardiac Procedure Note-CS/ASA ---
Pre-Procedure Note Pre-Op Procedure Note H&P Reviewed The H&P was reviewed, patient examined and no changes noted. Date H&P Reviewed: May 13, 2022 Time H&P Reviewed: 11:30 Conscious Sedation Pre-Proced Time 11:30 ASA Score 3 For ASA 3 and 4: Consider anesthesia and medical clearance. Also, for patients with a history of failed moderate sedation consider anesthesia. Airway Lungs Heart ASA score ASA 1: a normal healthy patient ASA 2: a patient with a mild systemic disease (mid diabetes, controlled hypertension, obesity ASA 3: a patient with a severe systemic disease that limits activity (angina, COPD, prior Myocardial infarction) ASA 4: a patient with an incapacitating disease that is a constant threat to life (CHF, renal failure) ASA 5: a moribund patient not expected to survive 24 hrs. (ruptured aneurysm) ASA 6: a declared brain- patient whose organs are being harvested. For emergent operations, add the letter E after the classification Mallampati Classification Grade 2 Sedation Plan Analgesia, Amnesia, Plan communicated to team members, Discussed options with patient/fam, Discussed risks with patient/fam The patient is an appropriate candidate to undergo the planned procedure, sedation, and anesthesia. The patient immediately re-assessed prior to indication. MARCUS ZHU MD FACP FAC [facility]S May 13, 2022 12:26
[2022-05-13] MEDS ORDERED: PATIENT MAY USE OWN MEDS, ALL PO SCH (12:30)
--- NOTE | 2022-05-13 12:30 | Discharge Inst-Cardiology ---
Discharge Inst-Cardiac Discharge Medications Continued Medications: Aspirin (Aspirin EC) 81 Mg Tablet.dr 81 MG PO HS, TAB Atorvastatin Calcium (Atorvastatin Calcium) 80 Mg Tablet 80 MG PO HS, TAB Clopidogrel Bisulfate (Clopidogrel) 75 Mg Tablet 75 MG PO HS, TAB Metoprolol Succinate (Metoprolol Succinate) 50 Mg Tab.er.24h 50 MG PO DAILY, TAB MARCUS ZHU MD [facility] May 13, 2022 12:30
--- NOTE | 2022-05-13 12:31 | Discharge Inst-Post CATH ---
Discharge Inst-CATH/EP Post Cardiac Cath/EP D/C Inst Follow Up/Plan F/u with Dr Rose in 2 weeeks ACTIVITY * Go Home directly and rest. * Limit activity of the leg (or wrist if it was used) for 7 days including aerobics, swimming, jogging, bicycling, etc. * Restrict stair-climbing for 7 days if possible, if not, climb up with your n on-cath leg, then bring together on the same step. * Avoid lifting, pushing, pulling or excessive movement of the affected ex tremity for 7 days. * Customary sexual activity may be resumed after 2 days-use caution not to use a position that strains or causes pain to the affected extremity. * No driving for 24 hours. * NO SMOKING. * Avoid straining for bowel movements for 7 days. * Gentle walking on level ground is allowed. * Returning to work will depend on the type of procedure and the results. Your doctor will discuss this with you. CALL YOUR DOCTOR FOR ANY OF THE FOLLOWING: *If bleeding from the puncture site occurs- Apply gentle pressure to site with clean cloth and call your doctor or EMS. * If a knot or lump forms under the skin, increases in size, or causes pain. * If bruising appears to be worsening or moving further down your leg instead of disappearing. * Temperature above 101 F. CARE OF YOUR GROIN INCISION; * Bruising or purple discoloration of the skin near the puncture site is common. * You may shower only, no bathtub bathing for 5 days. Be careful to avoid slipping as your leg may feel stiff. * If a closure device was used on your femoral artery, please see the attached guide regarding care of the device and your leg. * Leave dressing on FOR 24 hours. CARE OF YOUR WRIST INCISION; * Bruising or purple discoloration of the skin near the puncture site is common. * You may shower. * DO NOT submerge wrist. * Leave dressing on FOR 24 hours. MARCUS ROSE MD FACP [facility] May 13, 2022 12:31
[2022-05-13] MEDS: NS IV 1000 ML 1,000 ML IV SCH ×2 (12:52→15:33)
[2022-05-13] MEDS ORDERED: fentaNYL INJ 100 MCG/2 ML AMP ONE (13:52)
[2022-05-13] MEDS ORDERED: ATROPINE INJ 0.4 MG/ML SDV ONE (13:52)
--- NOTE | 2022-05-13 15:24 | CARDIAC CATHETERIZATION ---
DATE OF SERVICE: 05/13/2022 CARDIAC CATHETERIZATION REPORT INDICATION FOR PROCEDURE: The patient is a 56-year-old gentleman with a known history of coronary artery disease, who has had stenting of the left circumflex several years ago. He has had recurrent chest discomfort, which is reminiscent of previous angina. Cardiac catheterization was carried out today after having obtained an informed consent. PROCEDURE IN DETAIL: He was brought to the cardiac catheterization laboratory in a fasting state. Right groin was prepared and draped in the usual sterile fashion. Lidocaine 1% was used for local anesthesia. Modified Seldinger technique was used to advance a 5-Serbian sheath in the right femoral artery, 5-Serbian JL4 catheter was used for left coronary angiography, 5-Serbian JR4 catheter was used for right coronary angiography, 5-Serbian pigtail catheter was used for left heart catheterization and left ventricular angiography. Subsequently, we carried out fractional flow reserve measurement in the right coronary artery, where the patient was noted to have 50% to 60% proximal to mid vessel stenosis. FRACTIONAL FLOW RESERVE MEASUREMENT IN THE RIGHT CORONARY ARTERY: We exchanged the sheath over a wire for a 6-Serbian sheath. We used a 6-Serbian JR3.5 guide catheter with side holes to engage the right coronary artery and advanced the pressure wire across the lesion and the tip was placed in the posterior descending branch of the right coronary artery. We gave 140 mcg per kilogram per minute of adenosine for 2 minutes and 20 seconds. Fractional flow reserve was measured at 0.89, indicating that the lesion was hemodynamically insignificant. He tolerated the procedure well. There were no changes in coronary status following the fractional flow reserve measurement. The patient received 5000 units of intravenous heparin during the procedure. The equipment was removed. Angiography of the right femoral artery was carried out through the sheath at the beginning of the procedure. The site of sheath deployment did not appear suitable for device closure. The sheath was sutured in place for manual sheath removal in the holding area. HEMODYNAMICS: Left ventricular end-diastolic pressure following coronary angiography was 10 mmHg. There was no significant pressure gradient on pullback across the aortic valve. Ascending aortic pressure was 91/62 with a mean of 64 mmHg. LEFT VENTRICULAR ANGIOGRAPHY: Left ventricular angiography was carried out in the right anterior oblique projection. Global left ventricular systolic function is well preserved. Left ventricular ejection fraction approximately 55%. There does not appear to be distinct regional wall motion abnormality in this view. CORONARY ANGIOGRAPHY: Left main coronary artery does not exhibit significant disease. Left anterior descending and the left circumflex arteries have diffuse mild to moderate plaque. There is a patent stent in the proximal portion of a large obtuse marginal branch of the left circumflex. Right coronary artery is dominant. It had 50% to 60% proximal and mid vessel stenosis and fractional flow reserve across that of 0.89, indicating that the lesion is not hemodynamically significant. CONCLUSIONS: 1. Mild to moderate coronary artery disease. 2. Patent stent in the proximal portion of an obtuse marginal branch of the left circumflex artery. 3. Well preserved global left ventricular systolic function with an ejection fraction of 55%. Normal left ventricular end-diastolic pressure. DISCUSSION AND RECOMMENDATIONS: Based on the results of the study, it appears appropriate to continue a conservative approach. Risk factor modification has been reviewed. Current regimen is being continued. Outpatient followup is advised. Job ID: [id number] DocumentID: [id number] Dictated Date: 05/13/2022 12:37:46 Crank Hand Date: 05/13/2022 15:23:08 Dictated By: MARCUS ZHU MD, MA, FACP, FACC,
== END 2022-05-13 19:29 | disposition home or self-care (01) ==
LOC: CATH 12:00 → ICU 12:42 → CATH 19:29
PROVIDERS: ATTEND Internal Medicine Cardiovascular Disease
DX: I25.119 Atherosclerotic heart disease of native coronary artery with unspecified angina pectoris (principal); F17.210 Nicotine dependence, cigarettes, uncomplicated; I65.23 Occlusion and stenosis of bilateral carotid arteries; I45.19 Other right bundle-branch block
CPT/HCPCS: 80053; 80061; 85027; 85610; 85730; 87081; 93005; 93458; 93571; C1769; C1887; C1894 ×2; 36415

== ENCOUNTER 2022-06-30 04:39 | Emergency (ER) | payer BC ==
[~2022-06-30] VITALS: Ht 180.3 cm; Wt 68.8 kg
[~2022-06-30 04:39] MED LIST changes: -HEParin (CATH LAB) 2,000 ML IV ONE; -LIDOCAINE 1% INJ 20 ML VIAL ONE; -MIDAZOLAM 5 MG/5 ML (VERSED) VIAL ONE; -NS IV 1000 ML 1,000 ML IV SCH; -NS IV 1000 ML 1,000 ML ONE; -fentaNYL INJ 100 MCG/2 ML AMP ONE
[2022-06-30 04:47] VITALS: BP 105/73
[2022-06-30] MEDS ORDERED: CYCLOBENZAPRINE 10 MG (FLEXERIL) TAB PO STA (04:54)
[2022-06-30] MEDS ORDERED: KETOROLAC 30 MG/ML VIAL IM ONE (05:00)
[2022-06-30] MEDS ORDERED: GABAPENTIN 100 MG (NEURONTIN) CAP PO ONE (05:00)
[2022-06-30] MEDS ORDERED: LIDO700A45 TP (05:01)
[2022-06-30] MEDS ORDERED: CYCL10TA25 PO (05:01)
--- NOTE | 2022-06-30 05:01 | ED Back Pain ---
General Chief Complaint: Back Problems Stated Complaint: BACK PAIN Nursing Triage Note: Patient states that he has been having back pain for 3 weeks to 1 month. Patient reports seeing his primary care for this issue and they prescribed him a muscle relaxer. Patient states that he stopped taking them because he can't work with them. Source of Information: Patient Exam Limitations: No Limitations History of Present Illness Date Seen by Provider: Jun 30, 2022 Time Seen by Provider: 04:47 Initial Comments 56yoM with PMH of chronic back pain coming in due to left lower back pain. Been going on for couple months intermittently. This most recent episodes been going on for a couple days worsening. Saw his primary care and was prescribed a muscle relaxer, but he is unable to work with them so has not really been taking them. Has a couple left still. Woke up to go to work this morning and the pain was worse so he wanted to be evaluated. Denies any weakness, numbness, bowel or bladder issues, abdominal pain, chest pain, shortness of breath, dysuria, hematuria, or any other concerns. The pain is consistent with prior episodes. Allergies and Home Medications Allergies Coded Allergies: Penicillins (Verified Allergy, Intermediate, Hives, 04/11/20) Patient Home Medication List Home Medication List Reviewed: Yes Aspirin (Aspirin EC) 81 Mg Tablet.dr, 81 MG PO HS, (Reported) Entered as Reported by: ALIYA SHEPHERD on 12/09/21 1029 Atorvastatin Calcium (Atorvastatin Calcium) 80 Mg Tablet, 80 MG PO HS, (Reported) Entered as Reported by: ARA AIKEN on 04/11/20 1313 Clopidogrel Bisulfate (Clopidogrel) 75 Mg Tablet, 75 MG PO HS, (Reported) Entered as Reported by: ALIYA SHEPHERD on 12/09/21 1029 Metoprolol Succinate (Metoprolol Succinate) 50 Mg Tab.er.24h, 50 MG PO DAILY, (Reported) Entered as Reported by: ALIYA SHEPHERD on 12/09/21 1029 Review of Systems Constitutional: No fever EENTM: No blurred vision Respiratory: No cough Cardiovascular: No chest pain Gastrointestinal: No abdominal pain Genitourinary: no symptoms reported Musculoskeletal: back pain Skin: no symptoms reported Psychiatric/Neurological: No Symptoms Reported All Other Systems Reviewed Negative Unless Noted: Yes Past Scxxylz-Hjowdu-Jgsouu Hx Patient Social History Tobacco Use?: Yes Tobacco type used: Cigarettes Smoking Status: Current Everyday Smoker Substance use?: No Alcohol Use?: No Pt feels they are or have been: No Immunizations Up To Date First/Initial COVID19 Vaccinat: Not Currently Vaccinated Second COVID19 Vaccination Navdeep: Not Currently Vaccinated Third COVID19 Vaccination Date: Not Currently Vaccinated Seasonal Allergies Seasonal Allergies: No Past Medical History Surgery/Hospitalization HX: HTN; High Cholesterol; Pacemaker Surgeries: Yes (cardiac stent placement, [employer]ACE [employer]) Coronary Stent, Pacemaker Respiratory: No Cardiac: Yes (stent placement ) Coronary Artery Disease, High Cholesterol Neurological: No Genitourinary: No Gastrointestinal: No Musculoskeletal: Yes (back injury in high school) Endocrine: No HEENT: No Cancer: No Psychosocial: No Integumentary: No Physical Exam Vital Signs Capillary Refill : Less Than 3 Seconds Height, Weight, BMI Height: 5'11.00" Weight: 156lbs. oz. 70.224755it; 21.00 BMI Method:Stated General Appearance: No Apparent Distress, WD/WN HEENT: PERRL/EOMI, Normal ENT Inspection, Pharynx Normal Neck: Full Range of Motion, Normal Inspection, Non Tender, Supple Cardiovascular: Regular Rate, Rhythm, No Edema, Normal Peripheral Pulses Respiratory: Chest Non Tender, Lungs Clear, Normal Breath Sounds, No Accessory Muscle Use, No Respiratory Distress Gastrointestinal: Normal Bowel Sounds, Non Tender, Soft; No Distended, No Guarding Back: Normal Inspection, No CVA Tenderness, No Vertebral Tenderness; No CVA Tenderness (L), No CVA Tenderness (R); Other (Pain with range of motion of the back that recreates his symptoms, muscular tenderness in the left lower back) Extremity: Normal Capillary Refill, Normal Inspection, Normal Range of Motion, Non Tender, No Calf Tenderness, No Pedal Edema, Other (5 out of 5 strength with foot dorsiflexion and plantarflexion, knee extension and flexion, hip flexion extension, negative straight leg raise) Neurologic/Psychiatric: Alert, No Motor/Sensory Deficits, Normal Mood/Affect, Other (Normal gait) Skin: Normal Color, Warm/Dry Lymphatic: No Adenopathy Progress/Results/Core Measures Results/Orders My Orders Orders - ROGER SHIRLEY MD Cyclobenzaprine Tablet (Flexeril Tablet) (06/30/22 04:54) Gabapentin Capsule/Tablet (Neurontin Cap (06/30/22 05:00) Ketorolac Injection (Toradol Injection) (06/30/22 05:00) Blood Pressure Mean: 84 Progress Progress Note : Progress Note 56-year-old male with above history coming in due to back pain. ABCs were intact and vitals are stable on presentation. Physical exam consistent with muscular type pain. Pain is consistent with prior episodes, does not seem consistent with a ruptured AAA or ureterolithiasis. He has had no trauma or falls. Normal neuro exam. Otherwise no red flags for low back pain. He is overall well-appearing. We will give him a muscle relaxer and anti-i nflammatory. I will have him follow-up with Robles Duron here in [facility] and told him to ask for referral for physical therapy. I believe he stable for discharge with outpatient follow-up. He was sent home with strict return precautions. Departure Impression Primary Impression: Low back pain Qualified Codes: M54.50 - Low back pain, unspecified; G89.29 - Other chronic pain Disposition: HOME, SELF-CARE Condition: Stable Departure-Patient Inst. Decision time for Depature: 04:59 Referrals: MARCELL DE LA CRUZ APRN (PCP) Primary Care Physician [facility] (Family) Primary Care Physician MATTHEW DURON Patient Instructions: Low Back Pain ED Add. Discharge Instructions: I want you to follow-up with Robles Duron here in [facility] and get a referral for physical therapy as I think that your best chance of getting pain-free. Take naproxen intermittently as needed or Tylenol would be safer option for you. You can try things such as a heating pad. I sent lidocaine patch and muscle relaxers. Do not operate heavy machinery on the muscle relaxer. Do not mix that heating pad with lidocaine patch otherwise you may bring yourself. Scripts Cyclobenzaprine HCl (Cyclobenzaprine HCl) 10 Mg Tablet 10 MG PO Q8H PRN for SPASMS for 5 Days, #15 TAB 0 Refills Prov: ROGER SHIRLEY MD 06/30/22 Lidocaine (Lidocaine 5% Patch) 5 % Adh..patch 1 EACH TP Q12H PRN for Neuropathic pain MDD 2 for 14 Days, #28 PATCH 2 patches max for 12 hours, then 12 hours patch-free period. Prov: RGOER SHIRLEY MD 06/30/22 Work/School Note: Work Release Form Date Seen in the Emergency Department: Jun 30, 2022 Return to Work: Jul 01, 2022 Restrictions: No Restrictions ROGER SHIRLEY MD Jun 30, 2022 05:01
== END 2022-06-30 05:04 | disposition home or self-care (01) ==
LOC: EDUNIT# 04:39 → ER FS 04:43
DX: M54.50 Low back pain, unspecified (principal); F17.210 Nicotine dependence, cigarettes, uncomplicated; Z28.310 Unvaccinated for COVID-19
CPT/HCPCS: 99284

== ENCOUNTER 2022-07-17 19:13 | Emergency (ER) | payer BC ==
[~2022-07-17] VITALS: Ht 180 cm; Wt 67.4 kg
[~2022-07-17 19:13] MED LIST changes: +LIDO700A45 TP
[2022-07-17] MEDS ORDERED: GABAPENTIN 100 MG (NEURONTIN) CAP PO ONE (19:30)
[2022-07-17] MEDS ORDERED: HYDROcodone/APAP 5 MG/325 MG (LORTAB) TAB PO ONE (19:30)
[2022-07-17] MEDS ORDERED: LIDO700A45 TP (19:31)
[2022-07-17] MEDS ORDERED: GABA-486 PO (19:31)
[2022-07-17] MEDS ORDERED: CYCL10TA25 PO (19:31)
[2022-07-17] MEDS ORDERED: ACET-2267 PO (19:31)
--- NOTE | 2022-07-17 19:31 | ED Back Pain ---
General Chief Complaint: Back Problems Stated Complaint: LOWER BACK PAIN Source of Information: Patient Exam Limitations: No Limitations History of Present Illness Date Seen by Provider: Jul 17, 2022 Time Seen by Provider: 19:15 Initial Comments 56-year-old male that is known to me coming in due to low back pain. He was seen less than a month ago for similar and that episode improved. This most recent episode started again around 3 AM this morning. He went to work and pain was too much so he eventually left around 3 PM. He has not taken anything for it as of yet. Previously has taken muscle relaxers, but does not like the way it makes him feel because it makes him sleepy. He has not followed up with orthopedics as of yet. Denies any weakness, numbness, bowel or bladder issue, trauma, midline pain, or any other concerns. The pain is in his right lower back, does not radiate, and he is otherwise denying any other acute complaints. Allergies and Home Medications Allergies Coded Allergies: Penicillins (Verified Allergy, Intermediate, Hives, 04/11/20) Patient Home Medication List Home Medication List Reviewed: Yes Acetaminophen (Tylenol Extra Strength) 500 Mg Tablet, 1,000 MG PO Q6H PRN for PAIN-BREAKTHROUGH Prescribed by: ROGER SHIRLEY on 07/17/221930 Aspirin (Aspirin EC) 81 Mg Tablet.dr, 81 MG PO HS, (Reported) Entered as Reported by: ALIYA SHEPHERD on 12/09/21 1029 Atorvastatin Calcium (Atorvastatin Calcium) 80 Mg Tablet, 80 MG PO HS, (Reported) Entered as Reported by: ARA AIKEN on 04/11/20 1313 Clopidogrel Bisulfate (Clopidogrel) 75 Mg Tablet, 75 MG PO HS, (Reported) Entered as Reported by: ALIYA SHEPHERD on 12/09/21 1029 Cyclobenzaprine HCl (Cyclobenzaprine HCl) 10 Mg Tablet, 10 MG PO Q8H PRN for SPASMS Prescribed by: ROGER SHIRLEY on 07/17/221930 Gabapentin (Gabapentin) 100 Mg Capsule, 100 MG PO Q8H Prescribed by: ROGER SHIRLEY on 07/17/221930 Lidocaine (Lidocaine 5% Patch) 5 % Adh..patch, 1 EACH TP Q12H PRN for Neuropathic pain Prescribed by: ROGER SHIRLEY on 07/17/221930 Metoprolol Succinate (Metoprolol Succinate) 50 Mg Tab.er.24h, 50 MG PO DAILY, (Reported) Entered as Reported by: ALIYA SHEPHERD on 12/09/21 1029 Review of Systems Constitutional: No fever EENTM: No blurred vision Respiratory: No cough Cardiovascular: No chest pain Gastrointestinal: No abdominal pain Genitourinary: no symptoms reported Musculoskeletal: back pain Skin: no symptoms reported Psychiatric/Neurological: No Symptoms Reported All Other Systems Reviewed Negative Unless Noted: Yes Past Mtzqdyq-Kavacb-Dbxclx Hx Patient Social History Tobacco Use?: Yes Tobacco type used: Cigarettes Immunizations Up To Date First/Initial COVID19 Vaccinat: Not Currently Vaccinated Second COVID19 Vaccination Navdeep: Not Currently Vaccinated Third COVID19 Vaccination Date: Not Currently Vaccinated Seasonal Allergies Seasonal Allergies: No Past Medical History Surgery/Hospitalization HX: HTN; High Cholesterol; Pacemaker Surgeries: Yes (cardiac stent placement, [employer]ACE [employer]) Coronary Stent, Pacemaker Respiratory: No Cardiac: Yes (stent placement ) Coronary Artery Disease, High Cholesterol Neurological: No Genitourinary: No Gastrointestinal: No Musculoskeletal: Yes (back injury in high school) Endocrine: No HEENT: No Cancer: No Psychosocial: No Integumentary: No Physical Exam Vital Signs Vital Signs - First Documented 07/17/22 19:15 Temp 37.5 Pulse 92 Resp 17 B/P (MAP) 127/74 (91) Pulse Ox 94 O2 Delivery Room Air Capillary Refill : Height, Weight, BMI Height: 5'11.00" Weight: 156lbs. oz. 70.298561ne; 21.00 BMI Method:Stated General Appearance: No Apparent Distress, WD/WN HEENT: PERRL/EOMI, Normal ENT Inspection, Pharynx Normal Neck: Full Range of Motion, Normal Inspection, Non Tender, Supple Cardiovascular: Regular Rate, Rhythm, No Edema, Normal Peripheral Pulses Respiratory: Chest Non Tender, Lungs Clear, Normal Breath Sounds, No Accessory Muscle Use, No Respiratory Distress Gastrointestinal: Normal Bowel Sounds, No Pulsatile Mass, Non Tender, Soft; No Distended, No Guarding Back: Normal Inspection, No Vertebral Tenderness, Other (Paravertebral ten derness on the right lower back, pain with any type of twisting that recreates his pain, negative straight leg test) Extremity: Normal Capillary Refill, Normal Inspection, Normal Range of Motion, Non Tender, No Calf Tenderness, No Pedal Edema Neurologic/Psychiatric: Alert, No Motor/Sensory Deficits, Normal Mood/Affect, Other (Antalgic gait) Skin: Normal Color, Warm/Dry Lymphatic: No Adenopathy Progress/Results/Core Measures Results/Orders My Orders Orders - ROGER SHIRLEY MD Lumbar Spine 2 Or 3 View (07/17/22 19:21) Hydrocodone/Apap 5/325 Tablet (Lortab 5 (07/17/22 19:30) Gabapentin Capsule/Tablet (Neurontin Cap (07/17/22 19:30) Dexamethasone Injection (Decadron Injec (07/17/22 19:30) Medications Given in ED Current Medications Medications Dose Ordered Sig/Herrera Route Start Time Stop Time Status Last Admin Dose Admin Acetaminophen/ Hydrocodone Bitart 1 ea ONCE ONCE PO 07/17/22 19:30 07/17/22 19:31 DC 07/17/22 19:28 1 EA Dexamethasone Sodium Phosphate 8 mg ONCE ONCE IM 07/17/22 19:30 07/17/22 19:31 DC 07/17/22 19:29 8 MG Gabapentin 300 mg ONCE ONCE PO 07/17/22 19:30 07/17/22 19:31 DC 07/17/22 19:28 300 MG Vital Signs/I&O 07/17/22 19:15 Temp 37.5 Pulse 92 Resp 17 B/P (MAP) 127/74 (91) Pulse Ox 94 O2 Delivery Room Air Progress Progress Note : Progress Note 56-year-old male with above history coming in due to low back pain. ABCs were intact and vitals were stable on presentation. Physical exam reassuring including a nonfocal neuro exam. Pain is worse with movement and recreates his pain and seems musculoskeletal in nature. Has not any trauma. Screening x-ray to evaluate for any pathologic fracture or malignancy negative other than arthritic changes and age related changes. I did a serct-mc-ceni ultrasound to screen his aorta. It was less than 2 cm in all areas ruling out AAA. He was given medications for symptomatic relief here. I will once again try to reiterate following up with orthopedics to assist. Diagnostic Imaging Diagonstic Imaging: Xray (lumbar spine) Comments NAME: MAX ORDOÑEZ MED REC#: [id number] PT STATUS: REG ER : 1965 PHYSICIAN: ROGER SHIRLEY MD ADMIT DATE: 07/17/22/ER FS Draft Date of Exam:07/17/22 LUMBAR SPINE 2 OR 3 VIEW INDICATION: Low back pain. EXAMINATION: AP and lateral views of lumbar spine were obtained. COMPARISON: Study of 03/20/2020. FINDINGS: Lumbar spinal curvature and alignment are unremarkable. There is disc space narrowing and endplate spurring from L1 through L4 with minimal involvement of the L4-L5 level. There is slight left convexity curvature. No fracture or subluxation is seen. There are superficial surgical clips in the left pelvis with possible gas in the pelvic tissues. IMPRESSION: Lumbar spondylosis without acute abnormality detected. Dictated on workstation # [id number] Dict: 07/17/221944 Trans: 07/17/221947 [facility] [id number] Interpreted by: KRISTEL MAX MD Electronically signed by: Departure Impression Primary Impression: Back pain Qualified Codes: M54.50 - Low back pain, unspecified Disposition: 01 HOME, SELF-CARE Condition: Stable Departure-Patient Inst. Decision time for Depature: 19:50 Referrals: MARCELL DE LA CRUZ APRN (PCP) Primary Care Physician [facility] (Family) Primary Care Physician MATTHEW DURON Patient Instructions: Low Back Pain (DC) Add. Discharge Instructions: Your back pain seems muscular in nature. Try to do some gentle stretching at home and it is really important to follow-up with an auto wheel alignment specialist, Robles Duron here in [facility]. I recommend getting a referral for physical therapy to prevent this from happening in the future. Medicines were sent to your pharmacy that you can try to take for discomfort. You can try taking a half dose of the muscle relaxer (10mg is a full dose so just take 5mg) as it may make you less sleepy Scripts Gabapentin (Gabapentin) 100 Mg Capsule 100 MG PO Q8H for Neuropathic pain for 7 Days, #21 CAP Prov: ROGER SHIRLEY MD 07/17/22 Acetaminophen (Tylenol Extra Strength) 500 Mg Tablet 1000 MG PO Q6H PRN for PAIN-BREAKTHROUGH for 7 Days, #56 TAB Prov: ROGER SHIRLEY MD 07/17/22 Cyclobenzaprine HCl (Cyclobenzaprine HCl) 10 Mg Tablet 10 MG PO Q8H PRN for SPASMS for 5 Days, #15 TAB 0 Refills Prov: ROGER SHIRLEY MD 07/17/22 Lidocaine (Lidocaine 5% Patch) 5 % Adh..patch 1 EACH TP Q12H PRN for Neuropathic pain MDD 2 for 14 Days, #28 PATCH 2 patches max for 12 hours, then 12 hours patch-free period. Prov: ROGER SHIRLEY MD 07/17/22 Work/School Note: Work Release Form Date Seen in the Emergency Department: Jul 17, 2022 Return to Work: Jul 18, 2022 Restrictions: No Restrictions ROGER SHIRLEY MD Jul 17, 2022 19:31
--- NOTE | 2022-07-17 19:49 | Diagnostic Imaging Report ---
INDICATION: Low back pain. EXAMINATION: AP and lateral views of lumbar spine were obtained. COMPARISON: Study of 03/20/2020. FINDINGS: Lumbar spinal curvature and alignment are unremarkable. There is disc space narrowing and endplate spurring from L1 through L4 with minimal involvement of the L4-L5 level. There is slight left convexity curvature. No fracture or subluxation is seen. There are superficial surgical clips in the left pelvis with possible gas in the pelvic tissues. IMPRESSION: Lumbar spondylosis without acute abnormality detected. Dictated by: Dictated on workstation # [id number]
[2022-07-17 19:53] VITALS: BP 127/74
== END 2022-07-17 19:53 | disposition home or self-care (01) ==
LOC: EDUNIT# 19:13 → ER FS 19:14
DX: M54.50 Low back pain, unspecified (principal); F17.210 Nicotine dependence, cigarettes, uncomplicated; Z28.310 Unvaccinated for COVID-19
CPT/HCPCS: 72100

== ENCOUNTER 2022-09-25 13:45 | Emergency (ER) | payer BC ==
[~2022-09-25 13:45] MED LIST changes: +ACET-2267 PO; +GABA-486 PO
== END 2022-09-25 13:50 | disposition left against medical advice (07) ==
LOC: EDUNIT# 13:45 → ER FS 13:48
DX: S61.012A Laceration without foreign body of left thumb without damage to nail, initial encounter (principal); X58.XXXA Exposure to other specified factors, initial encounter; Y92.59 Other trade areas as the place of occurrence of the external cause; Y99.0 Civilian activity done for income or pay

== ENCOUNTER 2022-09-30 12:59 | Emergency (ER) | payer BC ==
[~2022-09-30] VITALS: Ht 180 cm; Wt 69.0 kg
--- NOTE | 2022-09-30 13:10 | ED Cough/URI ---
General Chief Complaint: Cough/Cold/Flu Symptoms Stated Complaint: COUGH History of Present Illness Date Seen by Provider: Sep 30, 2022 Time Seen by Provider: 13:08 Initial Comments 57 yr M with PMH of pacemaker/COPD, is here with complaints of a chronic cough which has been going on for the past 2 to 3 years and is intermittent in nature. Patient also has been having chills since last night. Patient does not know if he had fever or not. Patient went to urgent care today morning and was told he had a possible pneumonia after doing a chest x-ray there, and urgent care reports that patient was desat into the mid 80s while walking, and so he was referred to the ER. In the ER patient's O2 sat has been at 98% on room air even after walking. Patient is not in any distress and is afebrile in the ER. He is not demonstrating any cough. Denies chest pain, shortness of breath, abdominal pain, nausea and vomiting. Patient has had 1 episode of watery diarrhea today. Allergies and Home Medications Allergies Coded Allergies: Penicillins (Verified Allergy, Intermediate, Hives, 04/11/20) Patient Home Medication List Home Medication List Reviewed: Yes Acetaminophen (Tylenol Extra Strength) 500 Mg Tablet, 1,000 MG PO Q6H PRN for PAIN-BREAKTHROUGH Prescribed by: ROGER SHIRLEY on 07/17/221930 Aspirin (Aspirin EC) 81 Mg Tablet.dr, 81 MG PO HS, (Reported) Entered as Reported by: ALIYA SHEPHERD on 12/09/21 1029 Atorvastatin Calcium (Atorvastatin Calcium) 80 Mg Tablet, 80 MG PO HS, (Reported) Entered as Reported by: ARA AIKEN on 04/11/20 1313 Clopidogrel Bisulfate (Clopidogrel) 75 Mg Tablet, 75 MG PO HS, (Reported) Entered as Reported by: ALIYA SHEPHERD on 12/09/21 1029 Cyclobenzaprine HCl (Cyclobenzaprine HCl) 10 Mg Tablet, 10 MG PO Q8H PRN for SPASMS Prescribed by: ROGER SHIRLEY on 07/17/221930 Gabapentin (Gabapentin) 100 Mg Capsule, 100 MG PO Q8H Prescribed by: ROGER SHIRLEY on 07/17/221930 Lidocaine (Lidocaine 5% Patch) 5 % Adh..patch, 1 EACH TP Q12H PRN for Neuropathic pain Prescribed by: ROGER SHIRLEY on 07/17/22 193 Metoprolol Succinate (Metoprolol Succinate) 50 Mg Tab.er.24h, 50 MG PO DAILY, (Reported) Entered as Reported by: ALIYA SHEPHERD on 12/09/21 1029 Review of Systems Review of Systems Constitutional: chills EENTM: no symptoms reported Respiratory: cough Cardiovascular: no symptoms reported Gastrointestinal: no symptoms reported Genitourinary: no symptoms reported Musculoskeletal: no symptoms reported Skin: no symptoms reported Psychiatric/Neurological: No Symptoms Reported Hematologic/Lymphatic: No Symptoms Reported Immunological/Allergic: no symptoms reported Past Yepgnmz-Qcowuj-Gqhlvm Hx Immunizations Up To Date First/Initial COVID19 Vaccinat: denies Second COVID19 Vaccination Navdeep: Not Currently Vaccinated Third COVID19 Vaccination Date: Not Currently Vaccinated Seasonal Allergies Seasonal Allergies: No Past Medical History Surgery/Hospitalization HX: HTN; High Cholesterol; Pacemaker Surgeries: Yes (cardiac stent placement, PACE [employer]ER) Coronary Stent, Pacemaker Respiratory: No Cardiac: Yes (stent placement ) Coronary Artery Disease, High Cholesterol Neurological: No Genitourinary: No Gastrointestinal: No Musculoskeletal: Yes (back injury in high school) Endocrine: No HEENT: No Cancer: No Psychosocial: No Integumentary: No Physical Exam Capillary Refill : Height: 5'11.00" Weight: 156lbs. oz. 70.380552mk; 20.00 BMI Method:Stated General Appearance: WD/WN, no apparent distress Eyes: Bilateral Eye PERRL, Bilateral Eye EOMI HEENT: PERRL/EOMI, normal ENT inspection Neck: non-tender, full range of motion, supple, normal inspection Respiratory: chest non-tender, lungs clear, normal breath sounds, no respiratory distress, no accessory muscle use Cardiovascular: regular rate, rhythm Gastrointestinal: normal bowel sounds, non tender, soft Extremities: normal range of motion Neurologic/Psychiatric: alert, normal mood/affect, oriented x 3 Skin: normal color Lymphatic: no adenopathy Progress/Results/Core Measures Suspected Sepsis SIRS Temperature: Pulse: Respiratory Rate: Blood Pressure / Mean: Results/Orders Lab Results Laboratory Tests Test 09/30/22 14:25 Range/Units Influenza Type A (RT-PCR) Not Detected Not Detecte Influenza Type B (RT-PCR) Not Detected Not Detecte SARS-CoV-2 RNA (RT-PCR) Not Detected Not Detecte Group A Streptococcus Screen NEGATIVE NEGATIVE My Orders Orders - BELTRAN ARCHIBALD MD Chest 1 View Ap/Pa Only (09/30/22 13:11) Covid 19 Inhouse Test (09/30/22 13:11) Influenza A And B By Pcr (09/30/22 13:11) Rapid Strep A Screen (09/30/22 13:12) Vital Signs/I&O Capillary Refill : Progress Note : Progress Note 1. CHRONIC COUGH WITH CHILLS: - CXR: no acute finding. No signs of pneumonia - COVID Test/ Rapid Flu Test/ Rapid Strep Test - I called and discussed with urgent care [facility] regarding details of patient. [facility] confirmed information in the H&P. - Follow up with PCP within 7 days -The patient was seen in the ED, and treated appropriately to presentation at a specific point in time. Patient is informed that there is a possibility that disease and illness can evolve and change in acuity rapidly or slowly after patient is discharged from the ER. Precautionary advice given to the patient for immediate return to ER if symptoms worsen or do not resolve, and to seek emergency care sooner rather than later. Pt also advised on the importance of PCP follow up and compliance with management and follow up plan with PCP and/or specialist, as this is part of the management plan. Pt verbally expressed understanding. Diagnostic Imaging Diagonstic Imaging: Xray Plain Films/CT/US/NM/MRI: chest Comments [facility], [place] NAME: MAX ORDOÑEZ [facility] REC#: [id number] PT STATUS: REG ER : 1965 PHYSICIAN: BELTRAN ARCHIBALD MD ADMIT DATE: 09/30/22/ER FS Draft Date of Exam:09/30/22 CHEST 1 VIEW AP/PA ONLY CLINICAL INDICATION: Patient with cough. EXAM: Portable chest x-ray upright view. COMPARISON: Chest x-ray dated 03/25/2022. FINDINGS: Lungs/pleura: Stable appearance of lung james. There is mild bibasilar atelectasis and/or scarring. Lungs are otherwise clear. There is no pneumothorax. There is no pleural effusion. Mediastinum: Unremarkable. Pulmonary vasculature: Unremarkable. Heart: Unremarkable. Stable position of the cardiac pacemaker. Bones/extrathoracic soft tissue: There are degenerative spurs involving the thoracic spine. IMPRESSION: Stable chest x-ray exam with no interval radiographic evidence of acute cardiopulmonary process. Dictated on workstation # [id number] Dict: 09/30/22 1320 Trans: 09/30/22 1322 [facility] [id number] Interpreted by: OLIVIA ALFONSO MD Electronically signed by: Departure Impression Primary Impression: Chronic cough Disposition: HOME, SELF-CARE Condition: Stable Departure-Patient Inst. Referrals: EDVIN LOZA MD (PCP) Primary Care Physician Patient Instructions: Cough, Adult ED, Cough, Runny Nose, and the Common Cold (DC) Add. Discharge Instructions: - Follow up with PCP within 7 days All discharge instructions reviewed with patient and/or family. Voiced understanding. BELTRAN ARCHIBALD MD Sep 30, 2022 13:10
--- NOTE | 2022-09-30 13:22 | Diagnostic Imaging Report ---
CLINICAL INDICATION: Patient with cough. EXAM: Portable chest x-ray upright view. COMPARISON: Chest x-ray dated 03/25/2022. FINDINGS: Lungs/pleura: Stable appearance of lung james. There is mild bibasilar atelectasis and/or scarring. Lungs are otherwise clear. There is no pneumothorax. There is no pleural effusion. Mediastinum: Unremarkable. Pulmonary vasculature: Unremarkable. Heart: Unremarkable. Stable position of the cardiac pacemaker. Bones/extrathoracic soft tissue: There are degenerative spurs involving the thoracic spine. IMPRESSION: Stable chest x-ray exam with no interval radiographic evidence of acute cardiopulmonary process. Dictated by: Dictated on workstation # [id number]
[2022-09-30 16:08] VITALS: BP 122/77
== END 2022-09-30 14:15 | disposition home or self-care (01) ==
LOC: EDUNIT# 12:59 → ER FS 13:01
DX: R05.3 Chronic cough (principal); Z20.822 Contact with and (suspected) exposure to COVID-19
CPT/HCPCS: 71045; 87430; 87636

== ENCOUNTER 2023-01-14 12:36 | Emergency (ER) | payer BC ==
[2023-01-14] MEDS ORDERED: DOXYCYCLINE 100 MG (VIBRAMYCIN) TABLET PO STA (12:55)
[2023-01-14] MEDS ORDERED: RT-ALBUTEROL/IPRATROPIUM 3 ML (DUONEB) VIAL INH ONE (13:00)
[2023-01-14] MEDS ORDERED: predniSONE 20 MG TAB PO ONE (13:00)
[2023-01-14] MEDS ORDERED: ASPIRIN 81 MG CHEW (CHILDREN'S ASA) PO ONE (13:00)
--- NOTE | 2023-01-14 13:00 | ED Cardiac General ---
History of Present Illness General Stated Complaint: CHEST PAIN Source: patient, old records Exam Limitations: no limitations History of Present Illness Date Seen by Provider: Jan 14, 2023 Time Seen by Provider: 12:38 Initial Comments 57-year-old male with past medical history of CAD status post stenting, COPD, pacemaker coming in due to chest tightness. Is been going on since yesterday, center of his chest, worse with breathing. He states he believes it is really his lungs and COPD. He has not used a breathing treatments for quite some time he states. Does endorse a productive cough at times. Feels short of breath intermittently as well. Denies any fever, nausea, vomiting, diarrhea, weakness, numbness, or any other concerns. When asked if this feels like last year when he got a stent placed, he denies that and states it feels more like COPD. He is otherwise denying any other acute complaints. Denies any history of DVT or PE. Allergies and Home Medications Allergies Coded Allergies: Penicillins (Verified Allergy, Intermediate, Hives, 04/11/20) Patient Home Medication List Home Medication List Reviewed: Yes Acetaminophen (Tylenol Extra Strength) 500 Mg Tablet, 1,000 MG PO Q6H PRN for PAIN-BREAKTHROUGH Prescribed by: ROGER SHIRLEY on 07/17/221930 Aspirin (Aspirin EC) 81 Mg Tablet.dr, 81 MG PO HS, (Reported) Entered as Reported by: ALIYA SHEPHERD on 12/09/21 1029 Atorvastatin Calcium (Atorvastatin Calcium) 80 Mg Tablet, 80 MG PO HS, (Reported) Entered as Reported by: ARA AIKEN on 04/11/20 1313 Clopidogrel Bisulfate (Clopidogrel) 75 Mg Tablet, 75 MG PO HS, (Reported) Entered as Reported by: ALIYA SHEPHERD on 12/09/21 1029 Cyclobenzaprine HCl (Cyclobenzaprine HCl) 10 Mg Tablet, 10 MG PO Q8H PRN for SPASMS Prescribed by: ROGER SHIRLEY on 07/17/221930 Gabapentin (Gabapentin) 100 Mg Capsule, 100 MG PO Q8H Prescribed by: ROGER SHIRLEY on 07/17/221930 Lidocaine (Lidocaine 5% Patch) 5 % Adh..patch, 1 EACH TP Q12H PRN for Neuropathic pain Prescribed by: ROGER SHIRLEY on 07/17/22 Metoprolol Succinate (Metoprolol Succinate) 50 Mg Tab.er.24h, 50 MG PO DAILY, (Reported) Entered as Reported by: ALIYA SHEPHERD on 12/09/21 1029 Review of Systems Review of Systems Constitutional: No fever EENTM: No Symptoms Reported Respiratory: See HPI Cardiovascular: See HPI Gastrointestinal: No Symptoms Reported Genitourinary: No Symptoms Reported Musculoskeletal: no symptoms reported Skin: no symptoms reported Psychiatric/Neurological: No Symptoms Reported Endocrine: No Symptoms Reported Hematologic/Lymphatic: No Symptoms Reported All Other Systems Reviewed Negative Unless Noted: Yes Past Zkfvsqf-Wufdaf-Wqvxgt Hx Patient Social History Tobacco Use?: Yes Tobacco type used: Cigarettes Immunizations Up To Date First/Initial COVID19 Vaccinat: denies Second COVID19 Vaccination Navdeep: Not Currently Vaccinated Third COVID19 Vaccination Date: Not Currently Vaccinated Seasonal Allergies Seasonal Allergies: No Past Medical History Surgery/Hospitalization HX: HTN; High Cholesterol; Pacemaker; CAD with stent to mid RCA Surgeries: Yes (cardiac stent placement, PACE MAKER) Coronary Stent, Pacemaker Respiratory: No Cardiac: Yes (stent placement ) Coronary Artery Disease, High Cholesterol Neurological: No Genitourinary: No Gastrointestinal: No Musculoskeletal: Yes (back injury in high school) Endocrine: No HEENT: No Cancer: No Psychosocial: No Integumentary: No Physical Exam Vital Signs Vital Signs - First Documented 01/14/23 12:36 Temp 36.3 Pulse 69 Resp 18 B/P (MAP) 142/87 (105) Pulse Ox 96 O2 Delivery Room Air Capillary Refill : Height, Weight, BMI Height: 5'11.00" Weight: 156lbs. oz. 70.871058gx; 21.00 BMI Method:Stated General Appearance: No Apparent Distress, WD/WN HEENT: PERRL/EOMI, Normal ENT Inspection, Pharynx Normal Neck: Full Range of Motion, Normal Inspection, Non Tender, Supple Respiratory: Chest Non Tender, No Accessory Muscle Use, No Respiratory Distress, Wheezing, Other (Prolonged expiratory phase) Cardiovascular: Regular Rate, Rhythm, No Edema, Normal Peripheral Pulses Gastrointestinal: Normal Bowel Sounds, Non Tender, Soft; No Distended, No Guarding Extremity: Normal Capillary Refill, Normal Inspection, Normal Range of Motion, Non Tender, No Calf Tenderness, No Pedal Edema Neurologic/Psychiatric: Alert, No Motor/Sensory Deficits, Normal Mood/Affect Skin: Normal Color, Warm/Dry Lymphatic: No Adenopathy Progress/Results/Core Measures Results/Orders Lab Results Laboratory Tests Test 01/14/23 12:44 Range/Units White Blood Count 7.2 4.3-11.0 10^3/uL Red Blood Count 5.59 H 4.30-5.52 10^6/uL Hemoglobin 18.5 H 13.3-17.7 g/dL Hematocrit 52 40-54 % Mean Corpuscular Volume 94 80-99 fL Mean Corpuscular Hemoglobin 33 25-34 pg Mean Corpuscular Hemoglobin Concent 35 32-36 g/dL Red Cell Distribution Width 13.6 10.0-14.5 % Platelet Count 215 130-400 10^3/uL Mean Platelet Volume 8.6 L 9.0-12.2 fL Immature Granulocyte % (Auto) 0 % Neutrophils (%) (Auto) 56 42-75 % Lymphocytes (%) (Auto) 32 12-44 % Monocytes (%) (Auto) 8 0-12 % Eosinophils (%) (Auto) 3 0-10 % Basophils (%) (Auto) 1 0-10 % Neutrophils # (Auto) 4.0 1.8-7.8 10^3/uL Lymphocytes # (Auto) 2.3 1.0-4.0 10^3/uL Monocytes # (Auto) 0.6 0.0-1.0 10^3/uL Eosinophils # (Auto) 0.2 0.0-0.3 10^3/uL Basophils # (Auto) 0.0 0.0-0.1 10^3/uL Immature Granulocyte # (Auto) 0.0 0.0-0.1 10^3/uL Prothrombin Time 12.1 L 12.2-14.7 SEC INR Comment 0.9 0.8-1.4 Activated Partial Thromboplast Time 26 24-35 SEC Sodium Level 140 135-145 MMOL/L Potassium Level 4.6 3.6-5.0 MMOL/L Chloride Level 103 98-107 MMOL/L Carbon Dioxide Level 27 21-32 MMOL/L Anion Gap 10 5-14 MMOL/L Blood Urea Nitrogen 14 7-18 MG/DL Creatinine 0.94 0.60-1.30 MG/DL Estimat Glomerular Filtration Rate 94 BUN/Creatinine Ratio 15 Glucose Level 106 H 70-105 MG/DL Calcium Level 9.6 8.5-10.1 MG/DL Corrected Calcium 9.5 8.5-10.1 MG/DL Magnesium Level 1.8 1.6-2.4 MG/DL Total Bilirubin 0.4 0.1-1.0 MG/DL Aspartate Amino Transf (AST/SGOT) 17 5-34 U/L Alanine Aminotransferase (ALT/SGPT) 15 0-55 U/L Alkaline Phosphatase 119 40-136 U/L Troponin I < 0.30 <0.30 NG/ML Pro-B-Type Natriuretic Peptide 174.3 H <125.0 PG/ML Total Protein 6.6 6.4-8.2 GM/DL Albumin 4.1 3.2-4.5 GM/DL Lipase 50 8-78 U/L My Orders Orders - ROGER SHIRLEY MD Cbc With Automated Diff (01/14/23 12:47) Magnesium (01/14/23 12:47) Chest 1 View Ap/Pa Only (01/14/23 12:47) Ekg Tracing (01/14/23 12:47) Comprehensive Metabolic Panel (01/14/23 12:47) Protime With Inr (01/14/23 12:47) Partial Thromboplastin Time (01/14/23 12:47) O2 (01/14/23 12:47) Monitor-Rhythm Ecg Trace Only (01/14/23 12:47) Ed Iv/Invasive Line Start (01/14/23 12:47) Lipase (01/14/23 12:47) Troponin I Fs (01/14/23 12:47) Probnp Fs (01/14/23 12:47) Albuterol/Ipra Inhalation Soln (Duoneb I (01/14/23 13:00) Aspirin Chewable Tablet (Baby Aspirin Ch (01/14/23 13:00) Prednisone Tablet (Deltasone Tablet) (01/14/23 13:00) Doxycycline Hyclate Tablet (Vibramycin T (01/14/23 12:55) Medications Given in ED Current Medications Medications Dose Ordered Sig/Herrera Route Start Time Stop Time Status Last Admin Dose Admin Albuterol/ Ipratropium 3 ml ONCE ONCE INH 01/14/23 13:00 01/14/23 13:01 DC 01/14/23 13:02 3 ML Aspirin 324 mg ONCE ONCE PO 01/14/23 13:00 01/14/23 13:01 DC 01/14/23 13:02 324 MG Prednisone 40 mg ONCE ONCE PO 01/14/23 13:00 01/14/23 13:01 DC 01/14/23 13:02 40 MG Vital Signs/I&O 01/14/23 12:36 Temp 36.3 Pulse 69 Resp 18 B/P (MAP) 142/87 (105) Pulse Ox 96 O2 Delivery Room Air Initial ECG Impression Date: Jan 14, 2023 Initial ECG Impression Time: 12:44 Initial ECG Rate: 72 Initial ECG Rhythm: Normal Sinus Comment Ventricularly paced rhythm with a wide QRS, no STEMI per Sgarbossa criteria Diagnostic Imaging Diagonstic Imaging: Xray (chest) Comments NAME: MAX ORDOÑEZ [facility] REC#: [id number] PT STATUS: REG ER : 1965 PHYSICIAN: ROGER SHIRLEY MD ADMIT DATE: 01/14/23/ER FS Draft Date of Exam:01/14/23 CHEST 1 VIEW AP/PA ONLY CLINICAL INDICATION: Patient with chest pain. EXAM: Portable chest x-ray upright view. COMPARISON: Chest x-ray dated 09/30/2022. FINDINGS: Lungs/pleura: Lungs are clear. There is no pneumothorax. There is no pleural effusion. Mediastinum: Unremarkable. Pulmonary vasculature: Unremarkable. Heart: Heart size is within normal limits. Cardiac pacemaker is again seen in stable position and appears intact. Bones/extrathoracic soft tissue: There are degenerative spurs involving the thoracic spine. IMPRESSION: There is no radiographic evidence of acute cardiopulmonary process. Dictated on workstation # [id number] Dict: 01/14/23 1303 Trans: 01/14/23 1310 AS6 [id number] Interpreted by: OLIVIA ALFONSO MD Electronically signed by: Departure Impression Primary Impression: COPD exacerbation Disposition: 01 HOME, SELF-CARE Condition: Stable Departure-Patient Inst. Decision time for Depature: 13:45 Referrals: EDVIN LOZA MD (PCP/Family) Primary Care Physician Patient Instructions: COPD Exacerbation, Adult ED Add. Discharge Instructions: This likely is related to your COPD in your lungs. You will be on antibiotics and steroids for the next week. Use the inhaler that was sent also every 2-4 hours as needed. If you are not feeling better after couple days of treatment, please call your regular doctor for repeat follow-up. If you develop more chest pain, please call your lining stuffer or come back to the ER. Scripts Albuterol Sulfate (Ventolin Hfa) 90 Mcg Hfa.aer.ad 2 PUFF INH Q4H PRN for WHEEZING for 30 Days, #1 EA 2 Refills 1 PUFF = 90 MCG Prov: ROGER SHIRLEY MD 01/14/23 Ipratropium/Albuterol Sulfate (Iprat-Albut 0.5-3(2.5) mg/3 ml) 0.5 Mg-3 Mg (2.5 Mg Base)/3 Ml Ampul.neb 3 ML IH Q4H PRN for SHORTNESS OF BREATH for 30 Days, #120 EACH Prov: ROGER SHIRLEY MD 01/14/23 Methylprednisolone (Methylprednisolone Dose Pack) 4 Mg Tab.ds.pk 4 MG PO UD for 6 Days, #21 PKG PER DOSE PACK INSTRUCTIONS Prov: ROGER SHIRLEY MD 01/14/23 Doxycycline Hyclate (Doxycycline Hyclate) 100 Mg Tablet 100 MG PO BID for 7 Days, #14 TAB 0 Refills Prov: ROGER SHIRLEY MD 01/14/23 Work/School Note: Work Release Form Date Seen in the Emergency Department: Jan 14, 2023 Return to Work: Jan 15, 2023 Restrictions: No Restrictions ROGER SHIRLEY MD Jan 14, 2023 12:59
[2023-01-14 13:01] LABS: BASOPHILS % (AUTO) 1 % (0-10); EOSINOPHILS # (AUTO) 0.2 10^3/uL (0.0-0.3); EOSINOPHILS % (AUTO) 3 % (0-10); HEMATOCRIT 52 % (40-54); HEMOGLOBIN 18.5 g/dL (13.3-17.7); LYMPHOCYTES # (AUTO) 2.3 10^3/uL (1.0-4.0); LYMPHOCYTES % (AUTO) 32 % (12-44); MEAN CORPUSCULAR HEMOGLOBIN 33 pg (25-34); MEAN CORPUSCULAR HGB CONC 35 g/dL (32-36); MEAN CORPUSCULAR VOLUME 94 fL (80-99); MEAN PLATELET VOLUME 8.6 fL (9.0-12.2); MONOCYTES # (AUTO) 0.6 10^3/uL (0.0-1.0); MONOCYTES % (AUTO) 8 % (0-12); NEUTROPHILS % (AUTO) 56 % (42-75); PLATELET COUNT 215 10^3/uL (130-400); WHITE BLOOD COUNT 7.2 10^3/uL (4.3-11.0)
--- NOTE | 2023-01-14 13:11 | Diagnostic Imaging Report ---
CLINICAL INDICATION: Patient with chest pain. EXAM: Portable chest x-ray upright view. COMPARISON: Chest x-ray dated 09/30/2022. FINDINGS: Lungs/pleura: Lungs are clear. There is no pneumothorax. There is no pleural effusion. Mediastinum: Unremarkable. Pulmonary vasculature: Unremarkable. Heart: Heart size is within normal limits. Cardiac pacemaker is again seen in stable position and appears intact. Bones/extrathoracic soft tissue: There are degenerative spurs involving the thoracic spine. IMPRESSION: There is no radiographic evidence of acute cardiopulmonary process. Dictated by: Dictated on workstation # [id number]
[2023-01-14 13:13] LABS: INR 0.9 (0.8-1.4); PROTHROMBIN TIME PATIENT 12.1 SEC (12.2-14.7)
[2023-01-14 13:15] LABS: ALBUMIN 4.1 GM/DL (3.2-4.5); BILIRUBIN,TOTAL 0.4 MG/DL (0.1-1.0); CALCIUM 9.6 MG/DL (8.5-10.1); CREATININE SERUM 0.94 MG/DL (0.60-1.30); MAGNESIUM 1.8 MG/DL (1.6-2.4); POTASSIUM 4.6 MMOL/L (3.6-5.0); TOTAL PROTEIN 6.6 GM/DL (6.4-8.2)
[2023-01-14] MEDS ORDERED: METH4TAB10 PO (13:35)
[2023-01-14] MEDS ORDERED: ALBU8.5H6 INH (13:35)
[2023-01-14] MEDS ORDERED: DOXY100T2 PO (13:35)
[2023-01-14] MEDS ORDERED: IPRA3AMP31 IH (13:35)
[2023-01-14 13:42] VITALS: BP 162/84
== END 2023-01-14 13:42 | disposition home or self-care (01) ==
LOC: EDUNIT# 12:36 → ER FS 12:37
DX: J44.1 Chronic obstructive pulmonary disease with (acute) exacerbation (principal); F17.210 Nicotine dependence, cigarettes, uncomplicated; Z95.5 Presence of coronary angioplasty implant and graft; Z88.1 Allergy status to other antibiotic agents; Z28.310 Unvaccinated for COVID-19
CPT/HCPCS: 36415; 71045; 80053; 83690; 83735; 83880; 84484; 85025; 85610; 85730; 93005; 93041; 94640

== ENCOUNTER 2023-02-03 09:00 | Day surgery (SDC) | payer BC ==
[2023-02-03] VITALS (19 sets, daily range): BP systolic 114–148; BP diastolic 77–98
[~2023-02-03] VITALS: Ht 180.3 cm; Wt 72.1 kg
[2023-02-03 07:21] LABS: HEMATOCRIT 54 % (40-54); HEMOGLOBIN 18.9 g/dL (13.3-17.7); MEAN CORPUSCULAR HEMOGLOBIN 32 pg (25-34); MEAN CORPUSCULAR HGB CONC 35 g/dL (32-36); MEAN CORPUSCULAR VOLUME 92 fL (80-99); MEAN PLATELET VOLUME 8.1 fL (9.0-12.2); PLATELET COUNT 210 10^3/uL (130-400); WHITE BLOOD COUNT 8.1 10^3/uL (4.3-11.0)
[2023-02-03 07:39] LABS: INR 0.9 (0.8-1.4); PROTHROMBIN TIME PATIENT 12.5 SEC (12.2-14.7)
[2023-02-03 07:42] LABS: ALBUMIN 4.1 GM/DL (3.2-4.5); BILIRUBIN,TOTAL 0.6 MG/DL (0.1-1.0); CALCIUM 9.2 MG/DL (8.5-10.1); CREATININE SERUM 0.95 MG/DL (0.60-1.30); POTASSIUM 4.2 MMOL/L (3.6-5.0); TOTAL PROTEIN 6.9 GM/DL (6.4-8.2)
[~2023-02-03 09:00] MED LIST changes: +ALBU8.5H6 INH; +DOXY100T2 PO; +FLUT15.845 NSEACH; +HEParin (CATH LAB) 2,000 ML IV ONE; +HEParin 1000 UNIT/ML (10ML VIAL) FOR BOLUS ONE; +IPRA3AMP31 IH; +LIDOCAINE 1% INJ 20 ML VIAL ONE; +METH4TAB10 PO; +MIDAZOLAM 5 MG/5 ML (VERSED) VIAL ONE; +NITRO DRIP 25000 MCG/D5W 250 ML IV ONE; +NS IV 1000 ML 1,000 ML IV SCH; +NS IV 1000 ML 1,000 ML ONE; +fentaNYL INJ 100 MCG/2 ML AMP ONE
--- NOTE | 2023-02-03 09:48 | Cardiac Procedure Note-CS/ASA ---
Pre-Procedure Note Pre-Op Procedure Note Date of Available H&P: Jan 09, 2023 Date H&P Reviewed: Feb 03, 2023 Time H&P Reviewed: 08:30 History & Physical: H&P Reviewed, No changes noted Conscious Sedation Pre-Proced ASA Score 3 For ASA 3 and 4: Consider anesthesia and medical clearance. Also, for patients with a history of failed moderate sedation consider anesthesia. Airway Lungs Heart ASA score ASA 1: a normal healthy patient ASA 2: a patient with a mild systemic disease (mid diabetes, controlled hypertension, obesity ASA 3: a patient with a severe systemic disease that limits activity (angina, COPD, prior Myocardial infarction) ASA 4: a patient with an incapacitating disease that is a constant threat to life (CHF, renal failure) ASA 5: a moribund patient not expected to survive 24 hrs. (ruptured aneurysm) ASA 6: a declared brain- patient whose organs are being harvested. For emergent operations, add the letter E after the classification Mallampati Classification Grade 2 Sedation Plan Analgesia, Amnesia, Plan communicated to team members The patient is an appropriate candidate to undergo the planned procedure, sedation, and anesthesia. The patient immediately re-assessed prior to indication. MARCUS ZHU MD FACP FAC CCDS Feb 03, 2023 09:48
[2023-02-03] MEDS ORDERED: ASPIRIN 81 MG CHEW (CHILDREN'S ASA) ONE (09:57)
[2023-02-03] MEDS ORDERED: CLOPIDOGREL 300 MG (PLAVIX) TABLET PO ONE (09:57)
[2023-02-03] MEDS ORDERED: PATIENT MAY USE OWN MEDS, ALL PO SCH (10:00)
--- NOTE | 2023-02-03 10:13 | Discharge Inst-Post CATH ---
Discharge Inst-CATH/EP Post Cardiac Cath/EP D/C Inst Follow Up/Plan F/u with Dr Rose in 2 weeks ACTIVITY * Go Home directly and rest. * Limit activity of the leg (or wrist if it was used) for 7 days including aerobics, swimming, jogging, bicycling, etc. * Restrict stair-climbing for 7 days if possible, if not, climb up with your n on-cath leg, then bring together on the same step. * Avoid lifting, pushing, pulling or excessive movement of the affected ex tremity for 7 days. * Customary sexual activity may be resumed after 2 days-use caution not to use a position that strains or causes pain to the affected extremity. * No driving for 24 hours. * NO SMOKING. * Avoid straining for bowel movements for 7 days. * Gentle walking on level ground is allowed. * Returning to work will depend on the type of procedure and the results. Your doctor will discuss this with you. CALL YOUR DOCTOR FOR ANY OF THE FOLLOWING: *If bleeding from the puncture site occurs- Apply gentle pressure to site with clean cloth and call your doctor or EMS. * If a knot or lump forms under the skin, increases in size, or causes pain. * If bruising appears to be worsening or moving further down your leg instead of disappearing. * Temperature above 101 F. CARE OF YOUR GROIN INCISION; * Bruising or purple discoloration of the skin near the puncture site is common. * You may shower only, no bathtub bathing for 5 days. Be careful to avoid slipping as your leg may feel stiff. * If a closure device was used on your femoral artery, please see the attached guide regarding care of the device and your leg. * Leave dressing on FOR 24 hours. CARE OF YOUR WRIST INCISION; * Bruising or purple discoloration of the skin near the puncture site is common. * You may shower. * DO NOT submerge wrist. * Leave dressing on FOR 24 hours. MARCUS ROSE MD FACP FAC CCDS Feb 03, 2023 10:13
--- NOTE | 2023-02-03 10:13 | Discharge Inst-Cardiology ---
Discharge Inst-Cardiac Discharge Medications Continued Medications: Albuterol Sulfate (Ventolin Hfa) 90 Mcg Hfa.aer.ad 2 PUFF INH Q4H PRN for WHEEZING for 30 Days, #1 EA 2 Refills 1 PUFF = 90 MCG Aspirin (Aspirin EC) 81 Mg Tablet.dr 81 MG PO HS, TAB Atorvastatin Calcium (Atorvastatin Calcium) 80 Mg Tablet 80 MG PO HS, TAB Clopidogrel Bisulfate (Clopidogrel) 75 Mg Tablet 75 MG PO HS, TAB Fluticasone Propionate (Fluticasone Propionate) 50 Mcg/Actuation [place].susp 1 SPRAY NSEACH DAILY PRN for CONGESTION, SPRAY Ipratropium/Albuterol Sulfate (Iprat-Albut 0.5-3(2.5) mg/3 ml) 0.5 Mg-3 Mg (2.5 Mg Base)/3 Ml Ampul.neb 3 ML IH Q4H PRN for SHORTNESS OF BREATH for 30 Days, #120 EACH Metoprolol Succinate (Metoprolol Succinate) 50 Mg Tab.er.24h 50 MG PO DAILY, TAB MARCUS ZHU MD FACP FAC CCDS Feb 03, 2023 10:13
[2023-02-03] MEDS: NS IV 1000 ML 1,000 ML IV SCH ×2 (10:46→13:31)
--- NOTE | 2023-02-03 11:47 | CARDIAC CATHETERIZATION ---
DATE OF SERVICE: 02/03/2023 PERIPHERAL ANGIOGRAPHY AND INTERVENTION REPORT INDICATION: The patient is a 57-year-old gentleman who has bilateral leg discomfort consistent with leg claudication. This is more pronounced on the right side and has been progressive. He has multiple risk factors for peripheral arterial disease, including smoking and a history of coronary artery disease. Peripheral angiography was carried out today after having obtained an informed consent. DESCRIPTION OF PROCEDURE: He was brought to the cardiac catheterization laboratory in a fasting state. The left groin was prepared and draped in the usual sterile fashion. Lidocaine 1% was used for local anesthesia. We used the modified Seldinger technique to gain access into the left femoral artery with a 5-Palestinian sheath. We advanced a 5-Palestinian pigtail catheter to the level of L1 with an abdominal aortic angiography was performed. The catheter was then pulled back to the level just above the aortoiliac bifurcation and bilateral leg artery angiography was performed with runoff down to the level of the ankles. Subsequently, we carried out measurement of pressure gradient in the left external iliac artery, which was exhibiting moderate to moderately severe stenosis and this was followed by percutaneous intervention. This is described below. PERCUTANEOUS INTERVENTION TO THE RIGHT EXTERNAL ILIAC ARTERY: The right external iliac artery appeared to have a moderate stenosis, which was not well visualized on the claire-posterior angiographic views. Also, we noticed a 30% stenosis in the proximal common iliac on the right. Accordingly, we decided to measure pressure gradient across these lesions. We used a crossover catheter to advance the wire into the right superficial femoral artery and advanced a straight 5-Palestinian catheter into the distal right common iliac. The wire was removed and we then performed a pullback across the lesions. We noted the lesion in the right external iliac artery to be hemodynamically significant. There was approximately 35-40 mm pressure gradient across this lesion. Therefore, this lesion was hemodynamically significant and also matched the right leg claudication symptoms that the patient has been experiencing. We carried out percutaneous intervention to this lesion. We exchanged the 5-Palestinian sheath over a long wire and used a 6-Palestinian 45 cm sheath, the tip of which was placed in the proximal part of the right common iliac. The wire remained in position and we advanced an Absolute Pro 7 x 40 mm stent to the lesion and this was carefully deployed and postdilated with a 6.0 x 40 mm balloon. Full stent expansion was achieved and the stenosis was reduced from approximately 70% to 0% residual. Flow throughout the vessel and distally was normal (JAMAL 3). The patient tolerated the procedure well. Angioplasty equipment was removed. The long sheath was replaced with a short 6-Palestinian sheath. Angiography of the left femoral artery was carried out of the sheath, but the site of the appointment was not suitable for device closure. The sheath was sutured in place and the patient was transferred to the floor for manual sheath removal. He received 6000 units of intravenous heparin during the procedure. At the end of the procedure, he received 324 mg of oral aspirin and 300 mg of oral Plavix. He tolerated the procedure well. ABDOMINAL AORTIC ANGIOGRAPHY: Abdominal aortic angiography did not indicate any significant abdominal aortic aneurysm or dissection. RENAL ARTERIES: Renal arteries were identified and these do not exhibit any significant disease. The aortoiliac junction is intact. There is some calcification of the aortoiliac junction. There did not appear to be significant disease of the aortoiliac bifurcation. BILATERAL LEG ARTERY ANGIOGRAPHY: The left common iliac, external iliac, internal iliac, common femoral, superficial femoral, deep femoral and the popliteal arteries are intact. There is a normal trifurcation of the left popliteal artery with good distal runoff. On the right side, there is 30% stenosis of the proximal portion of the common iliac and there was a 70% stenosis in the right external iliac with a 35-40 mm pressure gradient across it. This was successfully stented with Absolute Pro 7 x 40 mm stent with reduction of stenosis to 0% residual. The right common femoral, superficial femoral, deep femoral, and popliteal arteries do not exhibit significant disease. The right popliteal exhibits a normal trifurcation with good distal runoff. CONCLUSION: Peripheral arterial disease as described above. It is consisting primarily of 70%, hemodynamically significant, stenosis in the right external iliac to which successful stenting was carried out with an Absolute Pro 7.0 x 40 mm stent. Job ID: [id number] DocumentID: [id number] Dictated Date: 02/03/2023 10:09:42 Legal Records Manager Date: 02/03/2023 11:21:00 Dictated By: MARCUS ZHU MD; KRIS; FACP; FACC;
[2023-02-03] MEDS ORDERED: ATROPINE INJ 0.4 MG/ML SDV ONE (12:29)
== END 2023-02-03 19:15 | disposition home or self-care (01) ==
LOC: CATH 09:00 → ICU 10:13 → CATH 19:15
PROVIDERS: ATTEND Internal Medicine Cardiovascular Disease
DX: I70.211 Atherosclerosis of native arteries of extremities with intermittent claudication, right leg (principal); F17.210 Nicotine dependence, cigarettes, uncomplicated; I25.10 Atherosclerotic heart disease of native coronary artery without angina pectoris; I45.19 Other right bundle-branch block; I65.23 Occlusion and stenosis of bilateral carotid arteries; Z79.02 Long term (current) use of antithrombotics/antiplatelets; Z95.0 Presence of cardiac pacemaker; Z79.82 Long term (current) use of aspirin; Z28.310 Unvaccinated for COVID-19
CPT/HCPCS: 37221; 80053; 80061; 85027; 85610; 85730; 87081; 93005; C1725; C1769; C1876; C1887 ×2; C1894 ×3; 36415

== ENCOUNTER 2023-02-26 04:54 | Emergency (ER) | payer BC ==
[~2023-02-26] VITALS: Ht 180.3 cm; Wt 75.5 kg
[~2023-02-26 04:54] MED LIST changes: -HEParin (CATH LAB) 2,000 ML IV ONE; -HEParin 1000 UNIT/ML (10ML VIAL) FOR BOLUS ONE; -LIDOCAINE 1% INJ 20 ML VIAL ONE; -MIDAZOLAM 5 MG/5 ML (VERSED) VIAL ONE; -NITRO DRIP 25000 MCG/D5W 250 ML IV ONE; -NS IV 1000 ML 1,000 ML IV SCH; -NS IV 1000 ML 1,000 ML ONE; -fentaNYL INJ 100 MCG/2 ML AMP ONE
[2023-02-26 05:21] LABS: BASOPHILS % (AUTO) 0 % (0-10); EOSINOPHILS # (AUTO) 0.2 10^3/uL (0.0-0.3); EOSINOPHILS % (AUTO) 3 % (0-10); HEMATOCRIT 52 % (40-54); HEMOGLOBIN 18.3 g/dL (13.3-17.7); LYMPHOCYTES % (AUTO) 28 % (12-44); MEAN CORPUSCULAR HEMOGLOBIN 32 pg (25-34); MEAN CORPUSCULAR HGB CONC 35 g/dL (32-36); MEAN CORPUSCULAR VOLUME 92 fL (80-99); MEAN PLATELET VOLUME 8.3 fL (9.0-12.2); MONOCYTES # (AUTO) 0.5 10^3/uL (0.0-1.0); MONOCYTES % (AUTO) 8 % (0-12); NEUTROPHILS # (AUTO) 4.4 10^3/uL (1.8-7.8); NEUTROPHILS % (AUTO) 61 % (42-75); PLATELET COUNT 183 10^3/uL (130-400); WHITE BLOOD COUNT 7.2 10^3/uL (4.3-11.0)
[2023-02-26] MEDS: ASPIRIN 81 MG CHEW (CHILDREN'S ASA) PO ONE (05:31)
[2023-02-26 05:43] LABS: INR 0.9 (0.8-1.4); PROTHROMBIN TIME PATIENT 12.5 SEC (12.2-14.7)
[2023-02-26 05:47] LABS: POTASSIUM 4.2 MMOL/L (3.6-5.0)
[2023-02-26 05:48] LABS: ALBUMIN 4.1 GM/DL (3.2-4.5); BILIRUBIN,TOTAL 0.5 MG/DL (0.1-1.0); CALCIUM 9.3 MG/DL (8.5-10.1); CREATININE SERUM 0.92 MG/DL (0.60-1.30); TOTAL PROTEIN 6.6 GM/DL (6.4-8.2)
--- NOTE | 2023-02-26 06:02 | Diagnostic Imaging Report ---
INDICATION: Chest pain COMPARISON: 01/14/2023 FINDINGS: Single frontal view of the chest demonstrates normal heart size and pulmonary vascularity. The lungs are well aerated and clear. No large pleural effusion or pneumothorax is seen. The visualized osseous structures show no acute abnormalities. Left-sided 2-lead pacemaker is noted. IMPRESSION: 1. No acute cardiopulmonary process. Dictated by: Dictated on workstation # [id number]
[2023-02-26] MEDS: ACETAMINOPHEN 500 MG TAB (TYLENOL) ONE (06:40)
--- NOTE | 2023-02-26 07:29 | ED Chest Pain ---
General Chief Complaint: Chest Pain Stated Complaint: CP Nursing Triage Note: Arrival of pt per POV ambulating to ED 1 reporting L sided chest pain described as continuous for 2 weeks described as pressure. Pt has COPD and continues smoking and doing his normal smoker's cough. Mild tenderness of L side of chest reporting Ibuprofen 600 mg usually helps. Pain has radiated to back and sometimes up R side of neck. Was seen [facility] this last week for this and referred to ED but refused. Remains on Plavix. Source: patient Exam Limitations: no limitations (ROGER SHIRLEY MD) History of Present Illness Date Seen by Provider: Feb 26, 2023 Time Seen by Provider: 05:01 Initial Comments 57-year-old male with past medical history of CAD and COPD most notably coming in due to greater than 2 weeks of constant chest pressure. Ibuprofen tends to help. Does radiate to the right side of his neck at times. Denies any shor tness of breath, worsening cough, weakness, numbness, vomiting, diarrhea, rash, or any other concerns. He was seen at [facility] walk-in clinic last week and was referred to the ER, but did not go. Denies any leg swelling or pain, no prior DVT or PE, no recent surgery under anesthesia, no hemoptysis. (ROGER SHIRLEY MD) Initial Comments This patient was initially interviewed and examined by me, but documentation cannot be entered due to EMR being down. Patient reported to me constant chest pain x3 weeks with no alleviating or exacerbating factors. He has history of coronary artery disease with stenting and catheterization. He also has peripheral vascular disease with iliac stenting and carotid disease. His chest pain is nontender. He reports ibuprofen does improve the pain, but he is not supposed to take ibuprofen as he is on Plavix. He denies any injury. His education program coordinator is Dr. Rose, and his primary care provider is Dr. Diehl. (WALE MONROE MD) Allergies and Home Medications Allergies Coded Allergies: Penicillins (Verified Allergy, Intermediate, Hives, 04/11/20) Patient Home Medication List Home Medication List Reviewed: Yes (ROGER SHIRLEY MD) Albuterol Sulfate (Ventolin Hfa) 90 Mcg Hfa.aer.ad, 2 PUFF INH Q4H PRN for WHEEZING Prescribed by: ROGER SHIRLEY on 01/14/23 1335 Aspirin (Aspirin EC) 81 Mg Tablet.dr, 81 MG PO HS, (Reported) Entered as Reported by: ALIYA SHEPHERD on 12/09/21 1029 Atorvastatin Calcium (Atorvastatin Calcium) 80 Mg Tablet, 80 MG PO HS, (Reported) Entered as Reported by: ARA AIKEN on 04/11/20 1313 Clopidogrel Bisulfate (Clopidogrel) 75 Mg Tablet, 75 MG PO HS, (Reported) Entered as Reported by: ALIYA SHEPHERD on 12/09/21 1029 Fluticasone Propionate (Fluticasone Propionate) 50 Mcg/Actuation [place].susp, 1 SPRAY NSEACH DAILY PRN for CONGESTION, (Reported) Entered as Reported by: AMA MARTINO on 02/03/23 0718 Ipratropium/Albuterol Sulfate (Iprat-Albut 0.5-3(2.5) mg/3 ml) 0.5 Mg-3 Mg (2.5 Mg Base)/3 Ml Ampul.neb, 3 ML IH Q4H PRN for SHORTNESS OF BREATH Prescribed by: ROGER SHIRLEY on 01/14/23 1335 Metoprolol Succinate (Metoprolol Succinate) 50 Mg Tab.er.24h, 50 MG PO DAILY, (Reported) Entered as Reported by: ALIYA SHEPHERD on 12/09/21 1029 Review of Systems Review of Systems Constitutional: No fever EENTM: No Symptoms Reported Respiratory: No Symptoms Reported Cardiovascular: See HPI Gastrointestinal: No Symptoms Reported Genitourinary: No Symptoms Reported (ROGER SHIRLEY MD) Past Esfoubs-Xecgwm-Nawake Hx Patient Social History Tobacco Use?: Yes Tobacco type used: Cigarettes Smoking Status: Current Everyday Smoker Smokeless Tobacco Frequency: Unknown if Ever Used Use of E-Cig and/or Vaping dev: No Substance use?: No Alcohol Use?: No Pt feels they are or have been: No (ROGER SHIRLEY MD) Immunizations Up To Date Influenza Vaccine Up-to-Date: No; Not Current First/Initial COVID19 Vaccinat: denies Second COVID19 Vaccination Navdeep: denies Third COVID19 Vaccination Date: denies (ROGER SHIRLEY MD) Seasonal Allergies Seasonal Allergies: No (ROGER SHIRLEY MD) Past Medical History Surgery/Hospitalization HX: HTN; High Cholesterol; Pacemaker/AV Block ; Angina; Non-STEMI [place]; CAD with stenting to mid RCA and most recent stent 02/03/23; Stents x 3; Tobaccoism; COPD; PVD; L internal Carotid artery occlusion; Noncompliance Surgeries: Yes (cardiac stent placement, [employer]) Coronary Stent, Pacemaker Respiratory: No COPD Cardiac: Yes (stent placement ) Coronary Artery Disease, High Cholesterol Neurological: No Genitourinary: No Gastrointestinal: No Musculoskeletal: Yes (back injury in high school) Endocrine: No HEENT: No Cancer: No Psychosocial: No Integumentary: No (ROGER SHIRLEY MD) Vascular Surgery (Iliac stenting) Peripheral Vascular (Carotid stenosis, iliac stenosis) (WALE MONROE MD) Physical Exam Vital Signs Vital Signs - First Documented 02/26/23 05:00 Temp 36.4 Pulse 67 Resp 18 B/P (MAP) 139/89 (106) Pulse Ox 91 O2 Delivery Room Air (WALE MONROE MD) Vital Signs Capillary Refill : Less Than 3 Seconds (ROGER SHIRLEY MD) Height, Weight, BMI Height: 5'11.00" Weight: 156lbs. oz. 70.210708yg; 23.00 BMI Method:Stated General Appearance: No Apparent Distress, WD/WN HEENT: PERRL/EOMI, Normal ENT Inspection, Pharynx Normal Neck: Full Range of Motion, Normal Inspection, Non Tender Respiratory: Chest Non Tender, Lungs Clear, Normal Breath Sounds, No Accessory Muscle Use, No Respiratory Distress Cardiovascular: Regular Rate, Rhythm, No Edema, Normal Peripheral Pulses Gastrointestinal: Normal Bowel Sounds, Non Tender, Soft Extremity: Normal Capillary Refill, Normal Inspection, Normal Range of Motion, Non Tender, No Calf Tenderness, No Pedal Edema Neurologic/Psychiatric: Alert, No Motor/Sensory Deficits, Normal Mood/Affect Skin: Normal Color, Warm/Dry (ROGER SHIRLEY MD) Other comments Exam: General: Alert, oriented, no acute distress, well developed HEENT: Normocephalic and atraumatic Neck: No JVD Heart: Regular rate and rhythm without murmur Chest: No tenderness to palpation, no rash Lungs: Clear to auscultation bilaterally with normal effort Abdomen: Soft, nontender, nondistended, normal bowel sounds Extremities: No edema, no calf tenderness Neuropsych: Alert, oriented, no focal deficits Skin: Warm and dry without rashes (WALE MONROE MD) Progress/Results/Core Measures Results/Orders Lab Results Laboratory Tests Test 02/26/23 05:15 02/26/23 07:17 Range/Units White Blood Count 7.2 4.3-11.0 10^3/uL Red Blood Count 5.69 H 4.30-5.52 10^6/uL Hemoglobin 18.3 H 13.3-17.7 g/dL Hematocrit 52 40-54 % Mean Corpuscular Volume 92 80-99 fL Mean Corpuscular Hemoglobin 32 25-34 pg Mean Corpuscular Hemoglobin Concent 35 32-36 g/dL Red Cell Distribution Width 13.2 10.0-14.5 % Platelet Count 183 130-400 10^3/uL Mean Platelet Volume 8.3 L 9.0-12.2 fL Immature Granulocyte % (Auto) 0 % Neutrophils (%) (Auto) 61 42-75 % Lymphocytes (%) (Auto) 28 12-44 % Monocytes (%) (Auto) 8 0-12 % Eosinophils (%) (Auto) 3 0-10 % Basophils (%) (Auto) 0 0-10 % Neutrophils # (Auto) 4.4 1.8-7.8 10^3/uL Lymphocytes # (Auto) 2.0 1.0-4.0 10^3/uL Monocytes # (Auto) 0.5 0.0-1.0 10^3/uL Eosinophils # (Auto) 0.2 0.0-0.3 10^3/uL Basophils # (Auto) 0.0 0.0-0.1 10^3/uL Immature Granulocyte # (Auto) 0.0 0.0-0.1 10^3/uL Prothrombin Time 12.5 12.2-14.7 SEC INR Comment 0.9 0.8-1.4 Activated Partial Thromboplast Time 27 24-35 SEC D-Dimer 0.43 0.00-0.49 UG/ML Sodium Level 137 135-145 MMOL/L Potassium Level 4.2 3.6-5.0 MMOL/L Chloride Level 103 98-107 MMOL/L Carbon Dioxide Level 24 21-32 MMOL/L Anion Gap 10 5-14 MMOL/L Blood Urea Nitrogen 17 7-18 MG/DL Creatinine 0.92 0.60-1.30 MG/DL Estimat Glomerular Filtration Rate 96 BUN/Creatinine Ratio 18 Glucose Level 99 70-105 MG/DL Calcium Level 9.3 8.5-10.1 MG/DL Corrected Calcium 9.2 8.5-10.1 MG/DL Magnesium Level 2.0 1.6-2.4 MG/DL Total Bilirubin 0.5 0.1-1.0 MG/DL Aspartate Amino Transf (AST/SGOT) 18 5-34 U/L Alanine Aminotransferase (ALT/SGPT) 13 0-55 U/L Alkaline Phosphatase 114 40-136 U/L Myoglobin 65.8 <72.0 NG/ML Troponin I < 0.30 < 0.30 <0.30 NG/ML C-Reactive Protein < 0.30 <0.50 MG/DL Total Protein 6.6 6.4-8.2 GM/DL Albumin 4.1 3.2-4.5 GM/DL (WALE MONROE MD) My Orders Orders - WALE MONROE MD Ekg Tracing (02/26/23 05:06) Cbc With Automated Diff (02/26/23 05:14) Magnesium (02/26/23 05:14) Chest 1 View Ap/Pa Only (02/26/23 05:14) Comprehensive Metabolic Panel (02/26/23 05:14) Myoglobin Serum (02/26/23 05:14) Protime With Inr (02/26/23 05:14) Partial Thromboplastin Time (02/26/23 05:14) O2 (02/26/23 05:14) Monitor-Rhythm Ecg Trace Only (02/26/23 05:14) Ed Iv/Invasive Line Start (02/26/23 05:14) Troponin I Fs (02/26/23 05:14) Aspirin Chewable Tablet (Baby Aspirin Ch (02/26/23 05:30) Crp Fs (02/26/23 05:23) Fibrin Degradation Products (02/26/23 05:34) Acetaminophen Tablet (Tylenol Tablet) (02/26/23 06:37) (WALE MONROE MD) Medications Given in ED Current Medications Medications Dose Ordered Sig/Herrera Route Start Time Stop Time Status Last Admin Dose Admin Aspirin 324 mg ONCE ONCE PO 02/26/23 05:30 02/26/23 05:31 DC 02/26/23 05:31 324 MG (WALE MONROE MD) Vital Signs/I&O 02/26/23 02/26/23 05:00 07:45 Temp 36.4 36.4 Pulse 67 78 Resp 18 18 B/P (MAP) 139/89 (106) 125/85 Pulse Ox 91 93 O2 Delivery Room Air Room Air (WALE MONROE MD) Blood Pressure Mean: 106 Progress Progress Note : Progress Note I received this patient in signout from the outgoing physician. The report was that the patient has had 3 weeks of constant chest pain with a history of CAD. An IV was placed and basic labs were obtained including cardiac biomarkers. Troponin was negative x2. Very unlikely to be ACS given the clinical history and the constant pain for this long. The patient has no clinical signs of a DVT, is not tachycardic, not short of breath, and overall would be lower risk for a PE. Additionally, his D-dimer is negative making a PE and/or aortic dissection highly unlikely. Chest x-ray clear with no obvious pneumonia or pneumothorax on my interpretation. EKG with no acute ischemic changes and appears similar to prior on my interpretation. I believe the patient is stable for discharge with outpatient follow-up. He was sent home with strict return precautions. (ROGER SHIRLEY MD) Progress Note : Progress Note Care of this patient was transitioned to Dr. Shirley at shift change. Documentation was entered later when the EMR was available. The initial cardiac work-up including CBC, CMP, CRP, D-dimer, and troponin was reviewed in its entirety by me. There were no significant abnormalities by my assessment. Repeat troponin after 2 hours was also normal. Chest x-ray was normal by my interpretation and radiologist read. EKG showed no acute ischemia and was similar to prior. Patient received Tylenol for treatment of his pain. Care was transitioned to Dr. Shirley while awaiting the repeat troponin result. (WALE MONROE MD) Initial ECG Impression Date: Feb 26, 2023 Initial ECG Impression Time: 05:09 Initial ECG Rate: 66 Initial ECG Rhythm: Normal Sinus Comment Wide QRS with a ventricularly paced rhythm, no STEMI, appears similar to prior (ROGER SHIRLEY MD) Diagnostic Imaging Diagonstic Imaging: Xray (chest) Comments [facility]. [place], [place] NAME: MAX ORDOÑEZ [facility] REC#: [id number] PT STATUS: REG ER : 1965 PHYSICIAN: WALE MONROE MD ADMIT DATE: 02/26/23/ER FS Draft Date of Exam:02/26/23 CHEST 1 VIEW AP/PA ONLY INDICATION: Chest pain COMPARISON: 01/14/2023 FINDINGS: Single frontal view of the chest demonstrates normal heart size and pulmonary vascularity. The lungs are well aerated and clear. No large pleural effusion or pneumothorax is seen. The visualized osseous structures show no acute abnormalities. Left-sided 2-lead pacemaker is noted. IMPRESSION: 1. No acute cardiopulmonary process. Dictated on workstation # [id number] Dict: 02/26/23 0601 Trans: 02/26/23 0601 [id number] Interpreted by: CHRISTFOER NAIR MD Electronically signed by: (ROGER SHIRLEY MD) Plain Films/CT/US/NM/MRI: chest (WALE MONROE MD) Departure Impression Primary Impression: Chest pain Qualified Codes: R07.82 - Intercostal pain Disposition: 01 HOME, SELF-CARE Condition: Stable Departure-Patient Inst. Decision time for Depature: 08:00 (ROGER SHIRLEY MD) Referrals: EDVIN DIEHL MD (PCP) Primary Care Physician MARCUS ROSE MD FACP FAC CCDS Patient Instructions: Chest Pain, Adult ED Add. Discharge Instructions: We are not seeing any evidence of a heart attack today, although there are other causes of chest pain as well. Please follow-up with Dr. Rose, the education program coordinator. If things worsen or you have any concerns, of course she could come back to the ER. Work/School Note: Work Release Form Date Seen in the Emergency Department: Feb 26, 2023 Return to Work: Feb 27, 2023 Restrictions: No Restrictions ROGER SHIRLEY MD Feb 26, 2023 07:29 WALE MONROE MD Feb 26, 2023 10:05
[2023-02-26 07:45] VITALS: BP 125/85
== END 2023-02-26 07:50 | disposition home or self-care (01) ==
LOC: EDUNIT# 04:54 → ER FS 04:55
DX: R07.89 Other chest pain (principal); F17.210 Nicotine dependence, cigarettes, uncomplicated; Z28.310 Unvaccinated for COVID-19; Z95.0 Presence of cardiac pacemaker; Z86.79 Personal history of other diseases of the circulatory system; Z79.02 Long term (current) use of antithrombotics/antiplatelets
CPT/HCPCS: 36415; 71045; 80053; 83735; 83874; 84484; 85025; 85379; 85610; 85730; 86141; 93005; 93041

== ENCOUNTER 2023-04-20 18:36 | Emergency (ER) | payer BC ==
[~2023-04-20] VITALS: Ht 180.3 cm; Wt 72.5 kg
[2023-04-20] MEDS ORDERED: PANTOPRAZOLE 40 MG (PROTONIX) VIAL IV STA (18:50)
[2023-04-20 18:55] LABS: BASOPHILS # (AUTO) 0.1 10^3/uL (0.0-0.1); BASOPHILS % (AUTO) 1 % (0-10); EOSINOPHILS # (AUTO) 0.2 10^3/uL (0.0-0.3); EOSINOPHILS % (AUTO) 3 % (0-10); HEMATOCRIT 49 % (40-54); HEMOGLOBIN 16.6 g/dL (13.3-17.7); LYMPHOCYTES # (AUTO) 2.6 10^3/uL (1.0-4.0); LYMPHOCYTES % (AUTO) 34 % (12-44); MEAN CORPUSCULAR HEMOGLOBIN 32 pg (25-34); MEAN CORPUSCULAR HGB CONC 34 g/dL (32-36); MEAN CORPUSCULAR VOLUME 95 fL (80-99); MEAN PLATELET VOLUME 8.2 fL (9.0-12.2); MONOCYTES # (AUTO) 0.6 10^3/uL (0.0-1.0); MONOCYTES % (AUTO) 8 % (0-12); NEUTROPHILS # (AUTO) 4.1 10^3/uL (1.8-7.8); NEUTROPHILS % (AUTO) 54 % (42-75); PLATELET COUNT 196 10^3/uL (130-400); WHITE BLOOD COUNT 7.6 10^3/uL (4.3-11.0)
--- NOTE | 2023-04-20 18:57 | ED Chest Pain ---
General Chief Complaint: Chest Pain Stated Complaint: CP Source: patient, old records History of Present Illness Date Seen by Provider: April 20, 2023 Time Seen by Provider: 18:37 Initial Comments 57-year-old male presenting with complaints of burning in the epigastric area since 3 PM this afternoon. He has had intermittent pain off and on for months in this area. He states he has a hiatal hernia and he was not sure if that was causing the pain. He has had prior stents placed as well as pacemaker and follows with Dr. Rose in [place]. He has not taken anything for his burning epigastric pain. He states that when he lays down at night sometimes the pain goes up into his left side of his neck. He has not followed up with the clinic for concerns about this. He did not feel there was anything that made the pain worse or better today. He rates his pain currently at a 2 out of 10. He does smoke cigarettes and has a smoker's cough but does not feel like he is coughing more than he usually does and is not coughing up sputum. He denies having shortness of breath or nausea or vomiting today. He states he did vomit on Thursday after eating chili and having pepper cammie cheese. Timing/Duration: other (Off and on for several months but constant since 3 PM) Severity/Quality: mild, burning Location: epigastric Radiation: no radiation Activities at Onset: none Prior CP/Workup: angina, cardiac cath ASA po PROCESS MANUFA[employer]URING ENGINEER: No NTG SL PROCESS MANUFACTURING ENGINEER: No Associated Symptoms: abdominal pain (Epigastric pain off and on for several months); No back pain, No diaphoresis, No dizziness, No edema, No fatigue, No fever/chills, No headache; heartburn; No rash, No shortness of breath, No swelling/lump in chest, No syncope Allergies and Home Medications Allergies Coded Allergies: Penicillins (Verified Allergy, Intermediate, Hives, 04/11/20) Patient Home Medication List Home Medication List Reviewed: Yes Albuterol Sulfate (Ventolin Hfa) 90 Mcg Hfa.aer.ad, 2 PUFF INH Q4H PRN for WHEEZ ING Prescribed by: ROGER SHIRLEY on 01/14/23 1335 Aspirin (Aspirin EC) 81 Mg Tablet.dr, 81 MG PO HS, (Reported) Entered as Reported by: ALIYA SHEPHERD on 12/09/21 1029 Atorvastatin Calcium (Atorvastatin Calcium) 80 Mg Tablet, 80 MG PO HS, (Reported) Entered as Reported by: ARA AIKEN on 04/11/20 1313 Clopidogrel Bisulfate (Clopidogrel) 75 Mg Tablet, 75 MG PO HS, (Reported) Entered as Reported by: ALIYA SHEPHERD on 12/09/21 1029 Fluticasone Propionate (Fluticasone Propionate) 50 Mcg/Actuation [place].susp, 1 SPRAY NSEACH DAILY PRN for CONGESTION, (Reported) Entered as Reported by: AMA MARTINO on 02/03/23 0718 Ipratropium/Albuterol Sulfate (Iprat-Albut 0.5-3(2.5) mg/3 ml) 0.5 Mg-3 Mg (2.5 Mg Base)/3 Ml Ampul.neb, 3 ML IH Q4H PRN for SHORTNESS OF BREATH Prescribed by: ROGER SHIRLEY on 01/14/23 1335 Metoprolol Succinate (Metoprolol Succinate) 50 Mg Tab.er.24h, 50 MG PO DAILY, (Reported) Entered as Reported by: ALIYA SHEPHERD on 12/09/21 1029 Pantoprazole Sodium (Pantoprazole Sodium) 40 Mg Tablet.dr, 40 MG PO DAILY Prescribed by: JOSÉ LUIS LARA on 04/20/232013 Review of Systems Review of Systems Constitutional: No chills, No diaphoresis, No dizziness, No fever EENTM: No Symptoms Reported Respiratory: No Symptoms Reported Cardiovascular: See HPI Gastrointestinal: See HPI Genitourinary: No Symptoms Reported Musculoskeletal: no symptoms reported Skin: no symptoms reported Psychiatric/Neurological: No Symptoms Reported Past Agjfgsf-Uuokds-Zoownt Hx Patient Social History Tobacco Use?: Yes Tobacco type used: Cigarettes Smoking Status: Current Everyday Smoker Substance use?: No Alcohol Use?: No Pt feels they are or have been: No Immunizations Up To Date First/Initial COVID19 Vaccinat: denies Second COVID19 Vaccination Navdeep: denies Third COVID19 Vaccination Date: denies Seasonal Allergies Seasonal Allergies: No Past Medical History Surgery/Hospitalization HX: Pacemaker, [place] Surgeries: Yes (cardiac stent placement, [employer]ACE [employer]) Vascular Surgery Respiratory: No COPD Cardiac: Yes (stent placement ) Peripheral Vascular Neurological: No Genitourinary: No Gastrointestinal: No Musculoskeletal: Yes (back injury in high school) Endocrine: No HEENT: No Cancer: No Psychosocial: No Integumentary: No Physical Exam Vital Signs Vital Signs - First Documented 04/20/23 18:39 Temp 37.0 Pulse 86 Resp 15 B/P (MAP) 158/97 (117) Pulse Ox 93 O2 Delivery Room Air Capillary Refill : Height, Weight, BMI Height: 5'11.00" Weight: 156lbs. oz. 70.575644ld; 23.00 BMI Method:Stated General Appearance: No Apparent Distress, WD/WN HEENT: PERRL/EOMI, Pharynx Normal Neck: Non Tender, Supple Respiratory: Chest Non Tender, Lungs Clear, Normal Breath Sounds, No Accessory Muscle Use, No Respiratory Distress Cardiovascular: Regular Rate, Rhythm, Normal Peripheral Pulses Gastrointestinal: Normal Bowel Sounds, No Pulsatile Mass, Non Tender, Soft Rectal: Deferred Extremity: Normal Capillary Refill, Normal Inspection, No Calf Tenderness, No Pedal Edema Neurologic/Psychiatric: Alert, Oriented x3 Skin: Normal Color, Warm/Dry Progress/Results/Core Measures Results/Orders Lab Results Laboratory Tests Test 04/20/23 16:45 Range/Units White Blood Count 7.6 4.3-11.0 10^3/uL Red Blood Count 5.17 4.30-5.52 10^6/uL Hemoglobin 16.6 13.3-17.7 g/dL Hematocrit 49 40-54 % Mean Corpuscular Volume 95 80-99 fL Mean Corpuscular Hemoglobin 32 25-34 pg Mean Corpuscular Hemoglobin Concent 34 32-36 g/dL Red Cell Distribution Width 13.6 10.0-14.5 % Platelet Count 196 130-400 10^3/uL Mean Platelet Volume 8.2 L 9.0-12.2 fL Immature Granulocyte % (Auto) 1 % Neutrophils (%) (Auto) 54 42-75 % Lymphocytes (%) (Auto) 34 12-44 % Monocytes (%) (Auto) 8 0-12 % Eosinophils (%) (Auto) 3 0-10 % Basophils (%) (Auto) 1 0-10 % Neutrophils # (Auto) 4.1 1.8-7.8 10^3/uL Lymphocytes # (Auto) 2.6 1.0-4.0 10^3/uL Monocytes # (Auto) 0.6 0.0-1.0 10^3/uL Eosinophils # (Auto) 0.2 0.0-0.3 10^3/uL Basophils # (Auto) 0.1 0.0-0.1 10^3/uL Immature Granulocyte # (Auto) 0.0 0.0-0.1 10^3/uL Prothrombin Time 12.2 12.2-14.7 SEC INR Comment 0.9 0.8-1.4 Activated Partial Thromboplast Time 26 24-35 SEC Sodium Level 140 135-145 MMOL/L Potassium Level 4.1 3.6-5.0 MMOL/L Chloride Level 105 98-107 MMOL/L Carbon Dioxide Level 24 21-32 MMOL/L Anion Gap 11 5-14 MMOL/L Blood Urea Nitrogen 13 7-18 MG/DL Creatinine 0.85 0.60-1.30 MG/DL Estimat Glomerular Filtration Rate 101 BUN/Creatinine Ratio 15 Glucose Level 131 H 70-105 MG/DL Calcium Level 9.2 8.5-10.1 MG/DL Corrected Calcium 9.2 8.5-10.1 MG/DL Magnesium Level 1.9 1.6-2.4 MG/DL Total Bilirubin 0.3 0.1-1.0 MG/DL Aspartate Amino Transf (AST/SGOT) 18 5-34 U/L Alanine Aminotransferase (ALT/SGPT) 16 0-55 U/L Alkaline Phosphatase 122 40-136 U/L Troponin I < 0.30 <0.30 NG/ML Pro-B-Type Natriuretic Peptide 189.7 H <125.0 PG/ML Total Protein 6.5 6.4-8.2 GM/DL Albumin 4.0 3.2-4.5 GM/DL Lipase 61 8-78 U/L My Orders Orders - JOSÉ LUIS LARA MD Cbc With Automated Diff (04/20/23 18:49) Magnesium (04/20/23 18:49) Chest 1 View Ap/Pa Only (04/20/23 18:49) Ekg Tracing (04/20/23 18:49) Comprehensive Metabolic Panel (04/20/23 18:49) Protime With Inr (04/20/23 18:49) Partial Thromboplastin Time (04/20/23 18:49) O2 (04/20/23 18:49) Monitor-Rhythm Ecg Trace Only (04/20/23 18:49) Aspirin Chewable Tablet (Baby Aspirin Ch (04/20/23 19:00) Nitroglycerin 0.4 Mg Btl 25's (Nitrostat (04/20/23 19:00) Ed Iv/Invasive Line Start (04/20/23 18:49) Lipase (04/20/23 18:49) Troponin I Fs (04/20/23 18:49) Probnp Fs (04/20/23 18:49) Pantoprazole Injection (Protonix Injecti (04/20/23 18:50) Lidocaine 2% Viscous 15 Ml (Xylocaine Vi (04/20/23 19:00) Antacid Suspension (Mylanta Suspension (04/20/23 19:00) Medications Given in ED Current Medications Medications Dose Ordered Sig/Herrera Route Start Time Stop Time Status Last Admin Dose Admin Al Hydrox/Mg Hydrox/Simethicone 30 ml ONCE ONCE PO 04/20/23 19:00 04/20/23 19:01 DC 04/20/23 18:59 30 ML Aspirin 324 mg ONCE ONCE PO 04/20/23 19:00 04/20/23 19:01 DC 04/20/23 18:59 324 MG Lidocaine HCl 15 ml ONCE ONCE PO 04/20/23 19:00 04/20/23 19:01 DC 04/20/23 18:59 15 ML Vital Signs/I&O 04/20/23 04/20/23 18:39 20:27 Temp 37.0 Pulse 86 71 Resp 15 16 B/P (MAP) 158/97 (117) 137/89 Pulse Ox 93 93 O2 Delivery Room Air Room Air Progress Progress Note #1: Progress Note Potential diagnosis of myocardial infarction, acute coronary syndrome, hiatal hernia, GERD, reflux, gastritis, colitis, diverticulitis, COPD exacerbation. Placed on cardiac cardiac monitor and obtain an electrocardiogram. On my initial interpretation of his telemetry monitoring shows a paced rhythm with a heart rate in the 70s. His electrocardiogram shows pacemaker with heart rate of 80 bpm. Appears similar to tracing from February 26, 2023. Obtain peripheral IV access and send labs for complete blood count, comprehensive metabolic profile, coagulation factors, troponin, magnesium, proBNP. Chest x-ray to evaluate for pathology with his lungs and chest. Administer aspirin 324 mg p.o. x1 since he has not had his aspirin for the day. Nitroglycerin sublingual 0.4 mg for his chest pain. Pantoprazole 40 mg IV for possible gastritis, GI cocktail for possible gastritis. Since he has had pain for over 4 hours before presentation a single troponin would be appropriate to look for heart damage. Progress Note #2: Time: 18:58 Progress Note On my personal interpretation and review of his 1 view chest x-ray he did not have a discrete infiltrate or effusion. He has cardiomegaly and his pacemaker is in the left upper chest. He reported to the nurse that his pain was 0 when she was giving him the aspirin, pantoprazole, GI cocktail. He did not receive any nitroglycerin since his pain went to a 0. 1914 his complete blood count showed normal white blood cell count of 7.6. He was not anemic with a hemoglobin of 16.6. His coagulation factors were not elevated to indicate a coagulopathy. His INR was 0.9. Progress Note #3: Time: 19:58 Progress Note His comprehensive metabolic profile did not show any acute significant abnormal ity. His troponin was less than 0.3. Again since his pain and been going on for over 4 hours prior to arrival in the ED his single troponin was felt to be a delta troponin and since his symptoms had all resolved will discharge to home with return precautions. Counseled to check with primary care and/or cardiology for additional testing and evaluation as deemed necessary. Counseled to return or follow-up sooner if having worsening symptoms. Initial ECG Impression Date: April 20, 2023 Initial ECG Impression Time: 18:40 Initial ECG Rate: 80 Initial ECG Comparisson: Unchanged (02/26/2023) Comment My personal interpretation and review his electrocardiogram shows pacemaker rhythm with 80 bpm. CA interval [address] elevation. QT interval 382 ms with a QTc interval 418 ms. Overall appears similar to tracing from February 26, 2023. Diagnostic Imaging Diagonstic Imaging: Xray Plain Films/CT/US/NM/MRI: chest Comments NAME: MAX ORDOÑEZ MED REC#: [id number] PT STATUS: REG ER : 1965 PHYSICIAN: JOSÉ LUIS LARA MD ADMIT DATE: 04/20/23/ER FS Draft Date of Exam:04/20/23 CHEST 1 VIEW AP/PA ONLY INDICATION: 57-year-old male with heartburn for approximately 3 hours. Pain radiates to the left side of his neck. Previous history of myocardial infarction with a pacemaker placement. COMPARISONS: 02/26/2023 FINDINGS: Single view of the chest shows normal heart, pleura and diaphragms. There is mild central venous congestion slightly increased. Few scattered alveolar infiltrates are seen but no confluent consolidations. There is no effusion or pneumothorax. There is a dual-chamber left-sided ICD. Soft tissues and bony thorax are unremarkable. IMPRESSION: 1. Slight interval increase in central venous congestion suggesting an element of mild failure. 2. Few scattered alveolar infiltrates but no confluent consolidations. 3. Stable left-sided ICD. Dictated on workstation # [id number] Dict: 04/20/231905 Trans: 04/20/231908 [facility] [id number] Interpreted by: AZRA AYALA MD Electronically signed by: Reviewed: Reviewed by Me (I reviewed the radiologist report at 1913) Departure Impression Primary Impression: Atypical chest pain Additional Impressions: Epigastric abdominal pain Hiatal hernia with GERD Disposition: HOME, SELF-CARE Condition: Improved Departure-Patient Inst. Decision time for Depature: 20:14 Referrals: EDVIN LOZA MD (PCP) Primary Care Physician MARCUS ROSE MD FACP FACC CCDS Patient Instructions: Acid Reflux, Adult and Adolescent ED, Chest Pain, Adult ED, Hiatal Hernia (DC), Ulcer and Gastritis Diet Add. Discharge Instructions: Stay well-hydrated and drink plenty of fluids. Follow-up bland low-fat diet. Take the acid reducing medicine to see if that helps with your hiatal hernia and recurrent burning pain. Check back with the clinic as they may want you to have endoscopy to look for ulcers in your stomach. Your primary care doctor may also want you to check back with cardiology for st ress test or additional testing. All discharge instructions reviewed with patient and/or family. Voiced understanding. Scripts Pantoprazole Sodium (Pantoprazole Sodium) 40 Mg Tablet. 40 MG PO DAILY for GERD for 30 Days, #30 TAB 0 Refills Prov: JOSÉ LUIS LARA MD 04/20/23 Work/School Note: Work Release Form Date Seen in the Emergency Department: April 20, 2023 Return to Work: April 22, 2023 Restrictions: No Restrictions JOSÉ LUIS LARA MD April 20, 2023 18:57
[2023-04-20] MEDS ORDERED: ASPIRIN 81 MG CHEW (CHILDREN'S ASA) PO ONE (19:00)
[2023-04-20] MEDS ORDERED: LIDOCAINE 2% VISCOUS 15 ML UDC PO ONE (19:00)
[2023-04-20] MEDS ORDERED: NITROGLYCERIN 0.4 MG SL TABS BTL 25'S SL PRN (19:00)
[2023-04-20] MEDS ORDERED: ANTACID SUSP 30 ML UDC (MYLANTA) PO ONE (19:00)
[2023-04-20 19:06] LABS: INR 0.9 (0.8-1.4); PROTHROMBIN TIME PATIENT 12.2 SEC (12.2-14.7)
--- NOTE | 2023-04-20 19:09 | Diagnostic Imaging Report ---
INDICATION: 57-year-old male with heartburn for approximately 3 hours. Pain radiates to the left side of his neck. Previous history of myocardial infarction with a pacemaker placement. COMPARISONS: 02/26/2023 FINDINGS: Single view of the chest shows normal heart, pleura and diaphragms. There is mild central venous congestion slightly increased. Few scattered alveolar infiltrates are seen but no confluent consolidations. There is no effusion or pneumothorax. There is a dual-chamber left-sided ICD. Soft tissues and bony thorax are unremarkable. IMPRESSION: 1. Slight interval increase in central venous congestion suggesting an element of mild failure. 2. Few scattered alveolar infiltrates but no confluent consolidations. 3. Stable left-sided ICD. Dictated by: Dictated on workstation # [id number]
[2023-04-20 19:34] LABS: BILIRUBIN,TOTAL 0.3 MG/DL (0.1-1.0); BUN/CREATININE RATIO 15; CALCIUM 9.2 MG/DL (8.5-10.1); CARBON DIOXIDE 24 MMOL/L (21-32); CHLORIDE 105 MMOL/L (98-107); CREATININE SERUM 0.85 MG/DL (0.60-1.30); GFR ESTIMATED 101; GLUCOSE 131 MG/DL (70-105); MAGNESIUM 1.9 MG/DL (1.6-2.4); POTASSIUM 4.1 MMOL/L (3.6-5.0); SODIUM 140 MMOL/L (135-145)
[2023-04-20 19:35] LABS: ALANINE AMINOTRANSFERASE 16 U/L (0-55); ALKALINE PHOSPHATASE 122 U/L (40-136); LIPASE 61 U/L (8-78); TOTAL PROTEIN 6.5 GM/DL (6.4-8.2)
[2023-04-20] MEDS ORDERED: PANT40TA52 PO (20:14)
[2023-04-20 20:27] VITALS: BP 137/89
== END 2023-04-20 20:28 | disposition home or self-care (01) ==
LOC: EDUNIT# 18:36 → ER FS 18:37
DX: K21.9 Gastro-esophageal reflux disease without esophagitis (principal); K44.9 Diaphragmatic hernia without obstruction or gangrene; I51.7 Cardiomegaly; F17.210 Nicotine dependence, cigarettes, uncomplicated; Z95.0 Presence of cardiac pacemaker; Z28.310 Unvaccinated for COVID-19
CPT/HCPCS: 36415; 71045; 80053; 83690; 83735; 83880; 84484; 85025; 85610; 85730; 93005; 93041

== ENCOUNTER 2023-05-27 03:42 | Emergency (ER) | payer BC ==
[~2023-05-27] VITALS: Ht 175 cm; Wt 73.6 kg
[~2023-05-27 03:42] MED LIST changes: +PANT40TA52 PO
[2023-05-27 03:47] VITALS: BP 127/85
[2023-05-27] MEDS ORDERED: KETOROLAC 15 MG/ML VIAL IM ONE (04:00)
[2023-05-27] MEDS ORDERED: LIDO700A45 TP (04:06)
[2023-05-27] MEDS ORDERED: CYCL10TA25 PO (04:06)
--- NOTE | 2023-05-27 04:06 | ED Back Pain ---
General Chief Complaint: Back Problems Stated Complaint: LOWER BACK PAIN Source of Information: Patient, Old Records Exam Limitations: No Limitations History of Present Illness Date Seen by Provider: May 27, 2023 Time Seen by Provider: 03:48 Initial Comments 57-year-old male with past medical history most notable for chronic low back pain coming in due to low back pain. He states this has been ongoing since high school, worsening over the past couple of days. He has been taking Tylenol for the pain. He has never followed up with an orthopedic doctor as he has been told in the past. He had to go home from work for it yesterday. Denies any hematuria, weakness, numbness, saddle anesthesia, bowel or bladder issues, trauma, fever, or any other concerns. Allergies and Home Medications Allergies Coded Allergies: Penicillins (Verified Allergy, Intermediate, Hives, 04/11/20) Patient Home Medication List Home Medication List Reviewed: Yes Albuterol Sulfate (Ventolin Hfa) 90 Mcg Hfa.aer.ad, 2 PUFF INH Q4H PRN for WHEEZING Prescribed by: ROGER SHIRLEY on 01/14/23 1335 Aspirin (Aspirin EC) 81 Mg Tablet.dr, 81 MG PO HS, (Reported) Entered as Reported by: ALIYA SHEPHERD on 12/09/21 1029 Atorvastatin Calcium (Atorvastatin Calcium) 80 Mg Tablet, 80 MG PO HS, (Reported) Entered as Reported by: ARA AIKEN on 04/11/20 1313 Clopidogrel Bisulfate (Clopidogrel) 75 Mg Tablet, 75 MG PO HS, (Reported) Entered as Reported by: ALIYA SHEPHERD on 12/09/21 1029 Fluticasone Propionate (Fluticasone Propionate) 50 Mcg/Actuation [place].susp, 1 SPRAY NSEACH DAILY PRN for CONGESTION, (Reported) Entered as Reported by: AMA MARTINO on 02/03/23 0718 Ipratropium/Albuterol Sulfate (Iprat-Albut 0.5-3(2.5) mg/3 ml) 0.5 Mg-3 Mg (2.5 Mg Base)/3 Ml Ampul.neb, 3 ML IH Q4H PRN for SHORTNESS OF BREATH Prescribed by: ROGER SHIRLEY on 01/14/23 1335 Metoprolol Succinate (Metoprolol Succinate) 50 Mg Tab.er.24h, 50 MG PO DAILY, (Reported) Entered as Reported by: ALIYA SHEPHERD on 12/09/21 1029 Pantoprazole Sodium (Pantoprazole Sodium) 40 Mg Tablet.dr, 40 MG PO DAILY Prescribed by: JOSÉ LUIS LARA on 04/20/232013 Review of Systems Constitutional: No fever EENTM: no symptoms reported Respiratory: no symptoms reported Cardiovascular: no symptoms reported Gastrointestinal: no symptoms reported Genitourinary: no symptoms reported Musculoskeletal: see HPI Skin: no symptoms reported Psychiatric/Neurological: No Symptoms Reported Past Lpezerf-Rgirid-Wbnidl Hx Patient Social History Tobacco Use?: Yes Tobacco type used: Cigarettes Immunizations Up To Date First/Initial COVID19 Vaccinat: denies Second COVID19 Vaccination Navdeep: denies Third COVID19 Vaccination Date: denies Seasonal Allergies Seasonal Allergies: No Past Medical History Surgery/Hospitalization HX: Pacemaker, [place] Surgeries: Yes (cardiac stent placement, PACE MAKER) Vascular Surgery Respiratory: No COPD Cardiac: Yes (stent placement ) Peripheral Vascular Neurological: No Genitourinary: No Gastrointestinal: No Musculoskeletal: Yes (back injury in high school) Endocrine: No HEENT: No Cancer: No Psychosocial: No Integumentary: No Physical Exam Vital Signs Capillary Refill : Less Than 3 Seconds Height, Weight, BMI Height: 5'11.00" Weight: 156lbs. oz. 70.760958pp; 24.00 BMI Method:Stated General Appearance: No Apparent Distress, WD/WN HEENT: PERRL/EOMI, Normal ENT Inspection, Pharynx Normal Neck: Full Range of Motion, Normal Inspection, Non Tender, Supple Cardiovascular: Regular Rate, Rhythm, No Edema, Normal Peripheral Pulses Respiratory: Chest Non Tender, Lungs Clear, Normal Breath Sounds, No Accessory Muscle Use, No Respiratory Distress Gastrointestinal: Normal Bowel Sounds, Non Tender, Soft; No Distended, No Guarding Back: Normal Inspection, No CVA Tenderness, No Vertebral Tenderness, Other (Paraspinal tenderness in his bilateral lower back) Extremity: Normal Capillary Refill, Normal Inspection, Normal Range of Motion, Non Tender, No Calf Tenderness, No Pedal Edema Neurologic/Psychiatric: Alert, No Motor/Sensory Deficits, Normal Mood/Affect, Other (Normal gait) Skin: Normal Color, Warm/Dry Progress/Results/Core Measures Results/Orders My Orders Orders - ROGER SHIRLEY MD Ketorolac Injection (Toradol Injection) (05/27/23 04:00) Dexamethasone Oral Soln (Ed) (Decadron I (05/27/23 03:59) Progress Progress Note : Progress Note 57-year-old male coming in due to low back pain. ABCs were intact and vitals were stable on presentation. Physical exam with no weakness or numbness, no midline pain. I seen the patient in the past for the same issue multiple times. Is been chronic and ongoing. The past abdominal ultrasound showing normal sized aorta making aortic aneurysm unlikely as well as an x-ray of his back with no fracture or dislocation. This is the same quality pain, no clinical signs of ureterolithiasis. No clinical signs of cauda equina and no other red flags otherwise. Patient will be given IM Toradol as well as some Decadron. I will once again discuss that he needs to follow-up with outpatient orthopedics and physical therapy. Departure Impression Primary Impression: Low back pain Qualified Codes: M54.50 - Low back pain, unspecified; G89.29 - Other chronic pain Disposition: HOME, SELF-CARE Condition: Stable Departure-Patient Inst. Decision time for Depature: 04:10 Referrals: EDVIN LOZA MD (PCP) Primary Care Physician MATTHEW DURON Patient Instructions: Low Back Pain ED Add. Discharge Instructions: At 8 AM this morning when office is open up, call Robles Duron's number and schedule an appointment (number in this paperwork). This issue will not fix itself, will continue to come back, and you need follow-up with a specialist. We also recommend doing physical therapy to help strengthen the area so its not coming back as often. Continue to take Tylenol as needed for pain. Lidocaine patches as well as a muscle relaxer were also sent to your pharmacy. Scripts Lidocaine (Lidocaine 5% Patch) 5 % Adh..patch 1 EACH TP Q12H PRN for Neuropathic pain MDD 2 for 14 Days, #28 PATCH 2 patches max for 12 hours, then 12 hours patch-free period. Prov: ROGER SHIRLEY MD 05/27/23 Cyclobenzaprine HCl (Cyclobenzaprine HCl) 10 Mg Tablet 10 MG PO Q8H PRN for SPASMS for 5 Days, #15 TAB 0 Refills Prov: ROGER SHIRLEY MD 05/27/23 Work/School Note: Work Release Form Date Seen in the Emergency Department: May 27, 2023 Return to Work: May 28, 2023 Restrictions: No Restrictions ROGER SHIRLEY MD May 27, 2023 04:06
== END 2023-05-27 04:14 | disposition home or self-care (01) ==
LOC: EDUNIT# 03:42 → ER FS 03:44
DX: M54.50 Low back pain, unspecified (principal); G89.29 Other chronic pain; F17.210 Nicotine dependence, cigarettes, uncomplicated; Z28.310 Unvaccinated for COVID-19
CPT/HCPCS: 99284

== ENCOUNTER 2023-08-13 05:05 | Emergency (ER) | payer BC ==
[~2023-08-13] VITALS: Ht 180.3 cm; Wt 75.2 kg
[~2023-08-13 05:05] MED LIST changes: +DICY-11 PO; -DICY10CA12 PO
[2023-08-13 05:08] VITALS: BP 143/96
[2023-08-13] MEDS ORDERED: ORPHENADRINE 60 MG/2 ML AMP (ED ONLY) IM STA (05:16)
[2023-08-13] MEDS ORDERED: dexAMETHasone INJ 10 MG/ML 1 ML VIAL IM STA (05:16)
--- NOTE | 2023-08-13 05:23 | ED General ---
General Chief Complaint: General Problems/Pain Stated Complaint: LEFT SIDE PAIN Source of Information: Patient History of Present Illness Date Seen by Provider: Aug 13, 2023 Time Seen by Provider: 05:09 Initial Comments 57 y o male presenting with complaint of 3 months of pain to left side of neck going into his shoulder and arm on the left side. He has seen Dr. Griggs about the pain and was told it was probably his heart. 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 He has had no imaging done. He has been seeing a chiropractor but states it has not helped. This morning he was not able to work because he had pain going all the way to his wrist. He has not had anything prescribed for pain but was taking some Ibuprofen in the last few days. He is not supposed to take Ibuprofen due to his heart history and other medicines he takes. Severity: Severe Modifying Factors: worse with Movement Associated Systoms: No Chest Pain, No Cough, No Diaphoresis, No Fever/Chills, No Headaches, No Loss of Appetite, No Malaise, No Nausea/Vomiting, No Rash, No Seizure, No Shortness of Air, No Syncope, No Weakness Allergies and Home Medications Allergies Coded Allergies: Penicillins (Verified Allergy, Intermediate, Hives, 04/11/20) Patient Home Medication List Home Medication List Reviewed: Yes Albuterol Sulfate (Ventolin Hfa) 90 Mcg Hfa.aer.ad, 2 PUFF INH Q4H PRN for WHEEZING Prescribed by: ROGER SHIRLEY on 01/14/23 1335 Aspirin (Aspirin EC) 81 Mg Tablet.dr, 81 MG PO HS, (Reported) Entered as Reported by: ALIYA SHEPHERD on 12/09/21 1029 Atorvastatin Calcium (Atorvastatin Calcium) 80 Mg Tablet, 80 MG PO HS, (Reported) Entered as Reported by: ARA AIKEN on 04/11/20 1313 Clopidogrel Bisulfate (Clopidogrel) 75 Mg Tablet, 75 MG PO HS, (Reported) Entered as Reported by: ALIYA SHEPHERD on 12/09/21 1029 Cyclobenzaprine HCl (Cyclobenzaprine HCl) 10 Mg Tablet, 10 MG PO Q8H PRN for SPASMS Prescribed by: ROGER SHIRLEY on 05/27/23 0406 Fluticasone Propionate (Fluticasone Propionate) 50 Mcg/Actuation Grady.susp, 1 SPRAY NSEACH DAILY PRN for CONGESTION, (Reported) Entered as Reported by: AMA MARTINO on 02/03/23 0718 Ipratropium/Albuterol Sulfate (Iprat-Albut 0.5-3(2.5) mg/3 ml) 0.5 Mg-3 Mg (2.5 Mg Base)/3 Ml Ampul.neb, 3 ML IH Q4H PRN for SHORTNESS OF BREATH Prescribed by: ROGER SHIRLEY on 01/14/23 1335 Lidocaine (Lidocaine 5% Patch) 5 % Adh..patch, 1 EACH TP Q12H PRN for Neuropathic pain Prescribed by: ROGER SHIRLEY on 05/27/23 0406 Methocarbamol (Methocarbamol) 500 Mg Tablet, 1,000 MG PO Q8H PRN for arm pain/muscle spasms Prescribed by: JOSÉ LUIS LARA on 08/13/23 0602 Metoprolol Succinate (Metoprolol Succinate) 50 Mg Tab.er.24h, 50 MG PO DAILY, (Reported) Entered as Reported by: ALIYA SHEPHERD on 12/09/21 1029 Pantoprazole Sodium (Pantoprazole Sodium) 40 Mg Tablet.dr, 40 MG PO DAILY Prescribed by: JOSÉ LUIS LARA on 04/20/232013 Prednisone (Prednisone) 20 Mg Tab, 40 MG PO DAILY Prescribed by: JOSÉ LUIS LARA on 08/13/23 0602 Review of Systems Review of Systems Constitutional: No chills, No fever EENTM: no symptoms reported Respiratory: no symptoms reported Cardiovascular: no symptoms reported Gastrointestinal: no symptoms reported Genitourinary: no symptoms reported Musculoskeletal: see HPI Skin: No rash Psychiatric/Neurological: Denies Numbness, Denies Paresthesia Past [place]-Hw[place]-Qaagly Hx Patient Social History Tobacco Use?: Yes Tobacco type used: Cigarettes Immunizations Up To Date First/Initial COVID19 Vaccinat: denies Second COVID19 Vaccination Navdeep: denies Third COVID19 Vaccination Date: denies Seasonal Allergies Seasonal Allergies: No Past Medical History Surgery/Hospitalization HX: Pacemaker, [place] Surgeries: Yes (cardiac stent placement, [employer]) Vascular Surgery Respiratory: No COPD Cardiac: Yes (stent placement ) Peripheral Vascular Neurological: No Genitourinary: No Gastrointestinal: No Musculoskeletal: Yes (back injury in high school) Endocrine: No HEENT: No Cancer: No Psychosocial: No Integumentary: No Physical Exam Vital Signs Vital Signs - First Documented 08/13/23 05:08 Temp 36.8 Pulse 93 Resp 18 B/P (MAP) 143/96 (112) Pulse Ox 91 O2 Delivery Room Air Capillary Refill : Height, Weight, BMI Height: 5'11.00" Weight: 156lbs. oz. 70.765711vt; 24.00 BMI Method:Stated General Appearance: No Apparent Distress Neck: Full Range of Motion, Supple, Tender Lateral (left side of neck with pain going down into his left shoulder and arm.) Respiratory: Chest Non Tender, Lungs Clear, Normal Breath Sounds, No Accessory Muscle Use, No Respiratory Distress Cardiovascular: Regular Rate, Rhythm, Normal Peripheral Pulses Extremity: Normal Capillary Refill, Normal Inspection, No Pedal Edema Neurologic/Psychiatric: Alert, Oriented x3 Skin: Normal Color, Warm/Dry Progress/Results/Core Measures Suspected Sepsis SIRS Temperature: Pulse: Respiratory Rate: Blood Pressure / Mean: Results/Orders My Orders Orders - JOSÉ LUIS LARA MD Ct Cervical Spine Wo (08/13/23 05:15) Dexamethasone Injection (Dexamethasone (08/13/23 05:16) Orphenadrine Inj (Ed Only) (Orphenadrine (08/13/23 05:16) Vital Signs/I&O 08/13/23 05:08 Temp 36.8 Pulse 93 Resp 18 B/P (MAP) 143/96 (112) Pulse Ox 91 O2 Delivery Room Air Capillary Refill : Progress Note #1: Progress Note Differential diagnosis includes cervical radiculopathy, pinched nerve, rotator cuff injury, cervical osteoarthritis. Order Dexamethasone 10 mg IM for pain and inflammation along with Norflex 60 mg IM for muscle spasm. CT scan of cervical spine without contrast to check for spinal cord stenosis or osteoarthritis causing pinched nerve. Counseled patient that MRI is the best way to evaluate for pinched nerve but can get some information from the CT scan this am. He also requested a work note since he was not able to work today. Progress Note #2: Time: 06:[address] came back showing arthritis and some cervical foraminal stenosis th at could be causing his symptoms. Will have him limit use of left arm and lifting until seen by clinic. May need MRI or referral to system specialist or pain management. In the meantime try steroid burst and muscle relaxer to help with pain and inflammation. Diagnostic Imaging Diagonstic Imaging: CT Plain Films/CT/US/NM/MRI: c-spine Comments NAME: MAX ORDOÑEZ [facility] REC#: [id number] PT STATUS: REG ER : 1965 PHYSICIAN: JOSÉ LUIS LARA MD ADMIT DATE: 08/13/23/ER FS Draft Date of Exam:08/13/23 CT CERVICAL SPINE WO PROCEDURE: CT cervical spine without contrast. TECHNIQUE: Multiple contiguous axial images were obtained through the cervical spine without the use of intravenous contrast. Sagittal and coronal reformations were then performed. Auto Exposure Controls were utilized during the CT exam to meet ALARA standards for radiation dose reduction. INDICATION: Neck pain with radiculopathy. No priors. There are degenerative changes to the discs, endplates, facets and uncovertebral joints throughout the cervical spine with some straightening of cervical curvature with mild reversal of lordosis at the lower levels but no listhesis. Vertebral statures are normal. No fracture or bony destruction. No paravertebral hemorrhage, mass or fluid collection. The airway patent. At C3-C4, there is moderate left greater than right foraminal as well as moderate central canal stenosis. At C5-C6, there is severe canal with severe left and moderate right foraminal stenosis. At C6-C7, there is [id number] bi-foraminal and central canal stenosis. IMPRESSION: Degenerative changes and multilevel chronic bony canal and foraminal stenoses, however, no cervical fracture, bony destructive process or acute appearing osseous abnormalities. Dictated on workstation # [id number] Dict: 08/13/23 0541 Trans: 08/13/23 0549 ARTEMIO [id number] Interpreted by: KRISTEL TAYLOR Electronically signed by: Reviewed: Reviewed by Me Departure Impression Primary Impression: Left cervical radiculopathy Additional Impression: Osteoarthritis of cervical spine Qualified Codes: M47.22 - Other spondylosis with radiculopathy, cervical region Disposition: 01 HOME, SELF-CARE Condition: Stable Departure-Patient Inst. Decision time for Depature: 06:00 Referrals: EDVIN LOZA MD (PCP/Family) Primary Care Physician Patient Instructions: Degenerative Disc Disease ED, Radiculopathy Add. Discharge Instructions: Try taking the steroid and muscle relaxer to try and help with pain and your symptoms. Follow up with clinic about the neck pain and pain into your arm. They may need to do MRI to get finer detail about your nerves and the arthritis in your neck. They may also need to refer you to a system specialist or pain management to try and help with your symptoms. All discharge instructions reviewed with patient and/or family. Voiced understanding. Scripts Methocarbamol (Methocarbamol) 500 Mg Tablet 1000 MG PO Q8H PRN for arm pain/muscle spasms for 7 Days, #42 TAB 0 Refills Prov: JOSÉ LUIS LARA MD 08/13/23 Prednisone (Prednisone) 20 Mg Tab 40 MG PO DAILY for cervical radiculopathy for 5 Days, #10 TAB 0 Refills Prov: JOSÉ LUIS LARA MD 08/13/23 Work/School Note: Work Release Form Date Seen in the Emergency Department: Aug 13, 2023 Return to Work: Aug 14, 2023 Restrictions: Need Release from Doctor Other Restrictions Listed Below: Limit use of left arm and no lifting over 20 pounds until cleared by clinic JOSÉ LUIS LARA MD Aug 13, 2023 05:23
--- NOTE | 2023-08-13 05:50 | Diagnostic Imaging Report ---
PROCEDURE: CT cervical spine without contrast. TECHNIQUE: Multiple contiguous axial images were obtained through the cervical spine without the use of intravenous contrast. Sagittal and coronal reformations were then performed. Auto Exposure Controls were utilized during the CT exam to meet ALARA standards for radiation dose reduction. INDICATION: Neck pain with radiculopathy. No priors. There are degenerative changes to the discs, endplates, facets and uncovertebral joints throughout the cervical spine with some straightening of cervical curvature with mild reversal of lordosis at the lower levels but no listhesis. Vertebral statures are normal. No fracture or bony destruction. No paravertebral hemorrhage, mass or fluid collection. The airway patent. At C3-C4, there is moderate left greater than right foraminal as well as moderate central canal stenosis. At C5-C6, there is severe canal with severe left and moderate right foraminal stenosis. At C6-C7, there is [id number]-ra-[id number] bi-foraminal and central canal stenosis. IMPRESSION: Degenerative changes and multilevel chronic bony canal and foraminal stenoses, however, no cervical fracture, bony destructive process or acute appearing osseous abnormalities. Dictated by: Dictated on workstation # [id number]
[2023-08-13] MEDS ORDERED: PRD20T PO (06:02)
[2023-08-13] MEDS ORDERED: METH-731 PO (06:02)
== END 2023-08-13 06:08 | disposition home or self-care (01) ==
LOC: EDUNIT# 05:05 → ER FS 05:06
DX: M47.22 Other spondylosis with radiculopathy, cervical region (principal); F17.210 Nicotine dependence, cigarettes, uncomplicated; Z28.310 Unvaccinated for COVID-19
CPT/HCPCS: 72125